=== PATIENT | female | born 1990 | race Caucasian/White ===

== ENCOUNTER 2016-11-08 17:23 | Emergency (ER) | payer OTHER ==
[~2016-11-08] VITALS: Ht 152.4 cm; Wt 54.4 kg
--- NOTE | 2016-11-08 17:56 | ED Cough/URI ---
General Chief Complaint: Cough/Cold/Flu Symptoms Stated Complaint: CHEST PAIN Nursing Triage Note: Patient advises that she has had a cough since last night that has become worse and today advises she has a sore throat. She denies hx. of fever. History of Present Illness Time seen by provider: 17:55 Initial Comments Patient reports cough, sinus drainage and sore throat. History of seasonal allergies she is not taking any medications for these. She has history of asthma but does not require medications regularly. Denies any SOA or wheezing. She does report that she needs a note for work that she was seen here. Timing/Duration: yesterday Severity/Quality: mild (nonproductive) Prior Episodes/Possible Cause: occasional episodes, allergen exposure Modifying Factors: Improves With Rest Associated Symptoms: denies symptoms Allergies and Home Medications Allergies Coded Allergies: No Known Drug Allergies (Unverified , 11/08/16) Constitutional: no symptoms reported, see HPI EENTM: nose congestion, throat pain, No epistaxis, No nose pain Respiratory: see HPI, cough, No phlegm All Other Systems Reviewed Negative Unless Noted: Yes Past Xdmqjqt-Zuytaa-Pdflpy Hx Patient Social History Alcohol Use: Denies Use Recreational Drug Use: No Smoking Status: Current Everyday Smoker Type Used: Cigarettes Recent Foreign Travel: No Contact w/Someone Who Travel: No Recent Infectious Disease Expo: No Recent Hopitalizations: No Seasonal Allergies Seasonal Allergies: No Cancer Hx Cancer: Yes Cancer: Cervical Reviewed Nursing Assessment Reviewed/Agree w Nursing PMH: Yes Physical Exam Vital Signs Vital Sign - Last 12Hours 11/08/16 17:46 Temp 98.7 Pulse 84 Resp 14 B/P (MAP) 133/64 Pulse Ox 97 O2 Delivery Room Air Capillary Refill : Less Than 3 Seconds General Appearance: WD/WN, no apparent distress Eyes: Bilateral Eye EOMI, Bilateral Eye Normal Inspection, Bilateral Eye PERRL HEENT: PERRL/EOMI, normal ENT inspection, TMs normal, pharynx normal, No pharyngeal erythema, No tonsillar exudate, other (postnasal drainage noted.) Neck: non-tender, full range of motion, supple, normal inspection, No lymphadenopathy (R), No lymphadenopathy (L) Respiratory: chest non-tender, lungs clear, normal breath sounds Cardiovascular: normal peripheral pulses, regular rate, rhythm, no edema, no murmur Gastrointestinal: normal bowel sounds, non tender, soft Neurologic/Psychiatric: no motor/sensory deficits, alert, normal mood/affect, oriented x 3 Skin: normal color, warm/dry Progress/Results/Core Measures Results/Orders Vital Signs/I&O Vital Sign - Last 12Hours 11/08/16 11/08/16 11/08/16 17:46 17:46 18:29 Temp 98.7 Pulse 84 86 Resp 14 14 B/P (MAP) 133/64 Pulse Ox 97 98 O2 Delivery Room Air Room Air Blood Pressure Mean: 87 ECG Initial ECG Impression Date: Nov 08, 2016 Initial ECG Impression Time: 17:38 Initial ECG Rate: 57 Initial ECG Rhythm: Normal Sinus Initial ECG Intervals: Normal Initial ECG Intervals [place] 140, QRS 3078, QT 380, QTc 370. [place] P 39, QRS 65, T1. Initial ECG Impression: Normal Initial ECG Comparisson: No Previous ECG Available Comment Reviewed with Dr. Enriquez, concurred with interpretation. Departure Impression Impression: Primary Impression: Seasonal allergies Qualified Codes: J30.2 - Other seasonal allergic rhinitis Disposition: 01 HOME, SELF-CARE Condition: Improved Departure-Patient Inst. Decision time for Depature: 18:10 Referrals: NO,LOCAL PHYSICIAN (PCP/Family) Primary Care Physician Patient Instructions: [facility]., Cough, Adult (DC), Seasonal Allergies (DC) Add. Discharge Instructions: Use afrs-gxs-uhanclu allergy medicine, per directions on bottle. Sinus rinse. Schedule follow-up appointment with Dr. Garcia, if symptoms are not improving. Return to emergency department if difficulty breathing, symptoms worsen, or new problems. All discharge instructions reviewed with patient and/or family. Voiced understanding. Copy Copies To 1: JASON GARCIA MD, AMY ARNP Nov 08, 2016 17:56
[2016-11-08 18:29] VITALS: BP 133/64
== END 2016-11-08 18:25 | disposition home or self-care (01) ==
LOC: ER 17:28
DX: J30.2 Other seasonal allergic rhinitis (principal); F17.210 Nicotine dependence, cigarettes, uncomplicated; Z85.41 Personal history of malignant neoplasm of cervix uteri
CPT/HCPCS: 99282

== ENCOUNTER 2017-01-23 14:21 | Emergency (ER) | payer OTHER ==
[~2017-01-23] VITALS: Ht 152.4 cm; Wt 52.2 kg
--- OUTSIDE RECORDS SUMMARY | 2017-01-23 14:27 | XMS REPORT | Clinical Summary ---
Author Author Admin, SABRA Organization [facility] Address Unknown Phone Unavailable Allergies, Adverse Reactions, Alerts Allergy Name Reaction Description Start Date Severity Status Provider No Known Allergies Cher Wright LPN Conditions or Problems Problem Name Problem Code Onset Date Status Entry Date Provider Comment Standard Description Annotate ASTHMA 493.90 Active Aditi Chino MD Asthma, unspecified SUPERVISION, NORMAL , PRIMIGRAVIDA V22.0 Correction Aditi Chino MD Supervision of normal first , NORMAL, MULTIGRAVIDA V22.1 Resolved Aditi Chino MD Supervision of other normal TOB USE D/O COMP PG /PP ANTEPARTM COND/COMP 649.03 Resolved Aditi Chino MD Tobacco use disorder complicating , childbirth, or the puerperium, antepartum condition or complication OTHER SPECIFED COMPLICATION ANTEPARTUM 646.83 Correction Aditi Chino MD Other specified complications of , antepartum condition or complication PLACENTA PREVIA WITHOUT HEMORRHAGE ANTEPARTUM 641.03 Resolved Aditi Chino MD Placenta previa without hemorrhage, antepartum condition or complication THROMBOCYTOPENIA 287.5 Resolved Aditi Chino MD Thrombocytopenia, unspecified OTH PLACENTAL CONDS AFFECT MGMT MOTH ANTPRTM 656.73 Resolved Aditi Chino MD Other placental conditions affecting management of mother, antepartum condition or complication OTHER NONSPECIFIC FINDINGS EXAMINATION OF BLOOD 790.99 Resolved Aditi Chino MD Other nonspecific findings on examination of blood UTI 599.0 Resolved Aditi Chino MD Urinary tract infection, site not specified VAGINAL DISCHARGE 623.5 Resolved Osmany Corea DO Leukorrhea, not specified as infective VAGINAL DISCHARGE 623.5 Resolved Aditi Chino MD Leukorrhea, not specified as infective OTHER DISEASES OF NASAL CAVITY AND SINUSES 478.19 Resolved 03/01 Osmany Corea DO Other disease of nasal cavity and sinuses CONTRACEPTIVE MANAGEMENT V25.09 Active Carlin Najera RN Encounter for other general counseling and advice on contraceptive management Cervical strain 847.0 Active Osmany Corea DO Neck sprain Gynecological examination, routine V72.3 Resolved Aditi Chino MD Special investigations and examinations - Gynecological examination Abnormal anal Pap HGSIL (high grade squamous intraepithelial lesion) 796.74 Inactive Aditi Chino MD Papanicolaou smear of anus with high grade squamous intraepithelial lesion (HGSIL) Abnormal cervical Pap HGSIL (high grade squamous intraepithelial lesion) 795.04 Active Aditi Chino MD Papanicolaou smear of cervix with high grade squamous intraepithelial lesion (HGSIL) HPV 079.4 Active Aditi Chino MD Human papillomavirus infection in conditions classified elsewhere and of unspecified site Tobacco abuse 305.1 Active Aditi Chino MD Tobacco use disorder HOPE 3, severe cervical 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99 05/06 Inactive Aditi Chino MD UTI ICD-599.0 Inactive Aditi Chino MD VAGINAL DISCHARGE ICD-623.5 Inactive Aditi Chino MD OTHER DISEASES OF NASAL CAVITY AND SINUSES ICD-478.19 Inactive Osmany Corea DO Gynecological examination, routine ICD-V72.3 Inactive Aditi Chino MD Medication List Medication Instructions Start Date Stop Date Generic Name NDC Status Provider Patient Instruction BACTRIM DS 800-160 MG TAB 1 tab by mouth twice daily TRIMETHOPRIM-SULFAMETHOXAZOLE 94915489230 No Longer Active Cher Wright LPN Active DEPO-PROVERA 150 MG/ML SUPENSION 1 IM injection q 3 month MEDROXYPROGEST LYNDSEY (CONTRACEP) 20762752519 Active Cher Wright LPN Active FLAGYL 500 MG TAB 1 tablet by mouth three times daily METRONIDAZOLE 19993830281 No Longer Active Aditi Chino MD Active TYLENOL 325 MG TABS one to two tabs Q4 hours PRN pain ACETAMINOPHEN 15682589820 No Longer Active Kirstin Yokum MANAGER CABLE Active COMPLETE DHA 29-1-200 & 250 MG MISC 1 tab daily KRISSY- [id number]-NW-CA-OMEGA 91121095705 No Longer Active Kirstin Yokum MANAGER CABLE Active LORATADINE 10 MG TABS one tab PO daily LORATADINE 38002178735 No Longer Active Kirstin Yokum MANAGER CABLE Active GNP SINUS WASH NETI POT 2300-700 MG KIT rinse sinuses BID PRN SODIUM CHLORIDE-SODIUM BICARB 82635040422 No Longer Active Kirstin Yokum MANAGER CABLE Active SOMA 350 MG TAB 1 tablet every 6 hours as needed for muscle pain CARISOPRODOL 28958668680 No Longer Active Kirstin Yokum MANAGER CABLE Active MELOXICAM 15 MG TABS 1 tab by mount every day for pain with food MELOXICAM 02154907742 No Longer Active Kirstin Yokum MANAGER CABLE Active MACROBID 100 MG CAPS one tab PO BID NITROFURANTOIN MONOHYD MACRO 34321394023 No Longer Active Aditi Chino MD Active BENADRYL 25 MG CAPS 1 to 2 caps every 6 hours PRN DIPHENHYDRAMINE HCL 56424757752 No Longer Active Aditi Chino MD Active MUCINEX 600 MG [id number] 1 tab every 12 hours PRN GUAIFENESIN 94067342423 No Longer Active Aditi Chino MD Active MUCINEX 600 MG [id number] 1 tab every 12 hours PRN MUCINEX 600 MG [id number] GUAIFENESIN Inactive BENADRYL 25 MG CAPS 1 to 2 caps every 6 hours PRN BENADRYL 25 MG CAPS 5403740 DIPHENHYDRAMINE HCL Inactive MELOXICAM 15 MG TABS 1 tab by mount every day for pain with food MELOXICAM 15 MG TABS 667873 MELOXICAM Inactive SOMA 350 MG TAB 1 tablet every 6 hours as needed for muscle pain SOMA 350 MG TAB 603422 CARISOPRODOL Inactive GNP SINUS WASH NETI POT 2300-700 MG KIT rinse sinuses BID PRN GNP SINUS WASH NETI POT 2300-700 MG KIT SODIUM CHLORIDE-SODIUM BICARB Inactive LORATADINE 10 MG TABS one tab PO daily LORATADINE 10 MG TABS 645538 LORATADINE Inactive COMPLETE DHA 29-1-200 & 250 MG MISC 1 tab daily COMPLETE DHA 29-1-200 & 250 MG MISC [id number]-CA-OMEGA Inactive TYLENOL 325 MG TABS one to two tabs Q4 hours PRN pain TYLENOL 325 MG TABS 493543 ACETAMINOPHEN Inactive FLAGYL 500 MG TAB 1 tablet by mouth three times daily FLAGYL 500 MG TAB 069828 METRONIDAZOLE Inactive MACROBID 100 MG CAPS one tab PO BID MACROBID 100 MG CAPS 8176385 NITROFURANTOIN MONOHYD MACRO Inactive BACTRIM DS 800-160 MG TAB 1 tab by mouth twice daily BACTRIM DS 800-160 MG TAB 637540 TRIMETHOPRIM-SULFAMETHOXAZOLE Inactive Immunizations Vaccine Administration Date Value Standard Description Seasonal influenza vaccine, injectable, containing preservative, for > 3 years old (Afluria, FluLaval, Fluzone, Fluvirin, Fluarix, Agriflu(>=18 yo)) Fluzone (>3 yrs.) [[id number]] Influenza, seasonal, injectable hepatitis B vaccine series no hepatitis B vaccine, unspecified formulation Vital Signs Date Name Value Unit Range Description blood pressure, diastolic - 8462-4 56 mm[Hg] BP salgado blood pressure, systolic - 8480-6 104 mm[Hg] BP sys pulse rate E&M - 8867-4 75 /min Heart rate temperature E&M 97 [degF] Body temperature weight E&M - 3141-9 111.4 [lb_av] Weight Measured blood pressure, diastolic - 8462-4 72 mm[Hg] BP salgado blood pressure, systolic - 8480-6 110 mm[Hg] BP sys pulse rate E&M - 8867-4 65 /min Heart rate temperature E&M 98.7 [degF] Body temperature weight E&M - 3141-9 110 [lb_av] Weight Measured blood pressure, diastolic - 8462-4 71 mm[Hg] BP salgado blood pressure, systolic - 8480-6 118 mm[Hg] BP sys pulse rate E&M - 8867-4 79 /min Heart rate temperature E&M 98.1 [degF] Body temperature weight E&M - 3141-9 110 [lb_av] Weight Measured Diagnostic Results Date Name Value Unit Range Description Lab Report: Chlamydia/GC APTIMA/55860 - Lab chlamydia DNA probe NOT DETECTED NOT DETECTED chlamydia DNA probe NOT DETECTED NOT DETECTED Lab Report: Chlamydia/GC APTIMA/18993 - Microbiology Neisseria gonorrhoeae DNA probe NOT DETECTED NOT DETECTED Neisseria gonorrhoeae DNA probe NOT DETECTED NOT DETECTED Lab Report: UADIP W/MICRO, AUTO - Chemistry RBC, urine, dipstick Negative Negative protein, total urine random Negative mg/dL Negative Lab Report: UADIP W/MICRO, AUTO - Urinalysis glucose, urine, semiquantitative Negative Negative ketones, urine, by test strip Negative Negative bilirubin, urine Negative Negative urine color Yellow Colorless;Lightyellow;Straw;Yellow appearance, urine Clear Clear specific gravity, urine 1.020 1.000-1.030 pH, urine, semiquantitative 8.0 5.0-8.5 urobilinogen, urine, semiquantitative (dipstick) 0.2 Normal leukocyte esterase, urine, by dipstick 1+ Negative nitrite, urine, semiquantitative Negative Negative Lab Report: [facility] [place] - Chemistry human chorionic gonadotropin, urine, qualitative (urine test) Negative Negative Office Procedure: Colposcopy - Chemistry human chorionic gonadotropin, urine, qualitative (urine test) neg Encounters Code Encounter Date Provider Facility CPT-19840 Level 3 Est. Patient 14:17:14 CDT Mirlande Amaro APRN [facility] CPT-34071 Level 3 Est. Patient 12:23:10 AUTO RESEARCH ENGINEER Osmany Corea DO [facility] Procedures Code Procedure Name Date Entry Date Standard Description CPT-J1050 Depo Provera 150 mg (Medroxyprogesterone) 13:00:11 CDT CPT-39259 Abx/Therapy Injection 13:00:11 CDT CPT-J1050 Depo Provera 150 mg (Medroxyprogesterone) 09:36:26 CDT CPT-OV Office Visit 14:05:04 CDT CPT-55512 [place] of cervix w bx ECC 13:52:03 CDT CPT-OV Office Visit 13:52:02 CDT CPT-J1050 Depo Provera 150 mg (Medroxyprogesterone) 15:37:52 AUTO RESEARCH ENGINEER CPT-19873 Abx/Therapy Injection 15:37:52 AUTO RESEARCH ENGINEER CPT-PV Prev. Care Visit 11:12:44 AUTO RESEARCH ENGINEER CPT-73364 Spec Collection and Handling Fee 11:10:58 AUTO RESEARCH ENGINEER CPT-J1050 Depo Provera 150 mg (Medroxyprogesterone) 12:33:33 CDT CPT-57324 Abx/Therapy Injection 12:33:33 CDT CPT-J1050 Depo Provera 150 mg (Medroxyprogesterone) 11:47:45 AUTO RESEARCH ENGINEER CPT-00298 Abx/Therapy Injection 11:47:45 AUTO RESEARCH ENGINEER CPT-J1050 Depo Provera 150 mg (Medroxyprogesterone) 10:35:27 AUTO RESEARCH ENGINEER CPT-56412 Abx/Therapy Injection 10:35:27 AUTO RESEARCH ENGINEER CPT-J1050 Depo Provera 150 mg (Medroxyprogesterone) 13:36:14 CDT CPT-63032 Abx/Therapy Injection 13:36:14 CDT CPT-J1050 Depo Provera 150 mg (Medroxyprogesterone) 16:53:25 CDT CPT-54208 Abx/Therapy Injection 16:53:25 CDT CPT-52705 Visit 10:35:01 AUTO RESEARCH ENGINEER CPT-OV Office Visit 11:07:54 AUTO RESEARCH ENGINEER CPT-50479 Visit 11:03:41 AUTO RESEARCH ENGINEER CPT-16450 Visit 15:16:37 AUTO RESEARCH ENGINEER CPT-50936 Visit 17:02:15 AUTO RESEARCH ENGINEER CPT-98735 Visit 11:11:34 AUTO RESEARCH ENGINEER CPT-57294 Sono OB transvag <14 weeks 16:17:14 CDT CPT-73704 Visit 11:24:40 CDT CPT-48037 Visit 18:13:37 CDT CPT-53496 Administration single or combination vaccine inc oral 12 :28:46 CDT CPT-67563 Influenza split virus > age 3 12:28:46 CDT CPT-12956 Sono OB comp > 14 weeks 17:05:09 CDT
--- OUTSIDE RECORDS SUMMARY | 2017-01-23 14:27 | XMS REPORT | Clinical Summary ---
Author Author Admin, SABRA Organization [facility] Address Unknown Phone Unavailable Allergies, Adverse Reactions, Alerts Allergy Name Reaction Description Start Date Severity Status Provider No Known Allergies Martitaparviz Weathers RMA Conditions or Problems Problem Name Problem Code [...] condition or complication THROMBOCYTOPENIA 287.5 Resolved Aditi hCino MD Thrombocytopenia, unspecified OTH PLACENTAL CONDS AFFECT MGMT MOTH ANTPRTM 656.73 Resolved Aditi Chino MD Other placental conditions affecting management of mother, antepartum condition or complication OTHER NONSPECIFIC FINDINGS EXAMINATION OF BLOOD 790.99 Resolved Aditi Chion MD Other nonspecific findings on examination of [...] cervix uteri Lower back pain 724.2 Active Jillina Frajames EMERGENCY MEDICINE NURSE PRACTITIONER Lumbago DYSURIA 788.1 Active Jillcarla Frajames EMERGENCY MEDICINE NURSE PRACTITIONER Dysuria URI 465.9 Active Osmany Corea DO Acute upper respiratory infections of unspecified site Hand pain, right 729.5 Active Osmany Corea DO Pain in limb , NORMAL, MULTIGRAVIDA ICD-V22.1 Inactive Aditi Chino MD TOB USE D/O COMP PG /PP ANTEPARTM COND/COMP ICD-649.03 06/17 Inactive Aditi Chino MD OTHER SPECIFED COMPLICATION ANTEPARTUM ICD-646.83 Mckayla Chino MD PLACENTA PREVIA WITHOUT HEMORRHAGE ANTEPARTUM [...] Osmany Corea DO Gynecological examination, routine ICD-V72.3 Mckayla Chino MD Medication List Medication Instructions Start Date Stop Date Generic Name NDC Status Provider Patient Instruction PREDNISONE 20 MG TAB 1 tab twice daily for 3 day, then one daily for three days PREDNISONE 66962653118 Active Osmany Corea DO Active BACTRIM DS 800-160 MG TAB 1 tab by mouth twice daily TRIMETHOPRIM-SULFAMETHOXAZOLE 05063662816 No Longer Active Cher Wright LPN Active DEPO-PROVERA 150 MG/ML SUPENSION 1 IM injection q 3 month MEDROXYPROGEST LYNDSEY (CONTRACEP) 03488785693 Active Cher Kyle PROTOTYPE MACHINE OPERATOR Active FLAGYL 500 MG TAB 1 tablet by mouth three times daily METRONIDAZOLE 88584422412 No Longer Active Aditi Chino MD Active TYLENOL 325 MG TABS one to two tabs Q4 hours PRN pain ACETAMINOPHEN 43179009718 No Longer Active Kirstin Yokum EMERGENCY MEDICINE NURSE PRACTITIONER Active COMPLETE DHA 29-1-200 & 250 MG MISC 1 tab daily PRENAT- UJVXK-YDTQG-YU-CA-OMEGA 95116137336 No Longer Active Kirstin Yokum EMERGENCY MEDICINE NURSE PRACTITIONER Active LORATADINE 10 MG TABS one tab PO daily LORATADINE 41550216175 No Longer Active Kirstin Yokum EMERGENCY MEDICINE NURSE PRACTITIONER Active GNP SINUS WASH NETI POT 2300-700 MG KIT rinse sinuses BID PRN SODIUM CHLORIDE-SODIUM BICARB 92449449924 No Longer Active Kirstin Yokum EMERGENCY MEDICINE NURSE PRACTITIONER Active SOMA 350 MG TAB 1 tablet every 6 hours as needed for muscle pain CARISOPRODOL 71118150574 No Longer Active Kirstin Yokum EMERGENCY MEDICINE NURSE PRACTITIONER Active MELOXICAM 15 MG TABS 1 tab by mount every day for pain with food MELOXICAM 45378659742 No Longer Active Kirstin Yokum EMERGENCY MEDICINE NURSE PRACTITIONER Active MACROBID 100 MG CAPS one tab PO BID NITROFURANTOIN MONOHYD MACRO 24087223463 No Longer Active Aditi Chino MD Active BENADRYL 25 MG CAPS 1 to 2 caps every 6 hours PRN DIPHENHYDRAMINE HCL 12161783576 No Longer Active Aditi Chino MD Active MUCINEX 600 MG [id number]-[id number] 1 tab every 12 hours PRN GUAIFENESIN 51677557914 No Longer Active Aditi Chino MD Active MUCINEX 600 MG [id number]-HFO 1 tab every 12 hours PRN MUCINEX 600 MG [id number]-LMZ GUAIFENESIN Inactive BENADRYL 25 MG CAPS 1 to 2 caps every 6 hours PRN BENADRYL 25 MG CAPS 9390874 DIPHENHYDRAMINE HCL Inactive MELOXICAM 15 MG TABS 1 tab by mount every day for pain with food MELOXICAM 15 MG TABS 096772 MELOXICAM Inactive SOMA 350 MG TAB 1 tablet every 6 hours as needed for muscle pain SOMA 350 MG TAB 925458 CARISOPRODOL Inactive GNP SINUS WASH NETI POT 2300-700 MG KIT rinse sinuses BID PRN GNP SINUS WASH NETI POT 2300-700 MG KIT SODIUM CHLORIDE-SODIUM BICARB Inactive LORATADINE 10 MG TABS one tab PO daily LORATADINE 10 MG TABS 846865 LORATADINE Inactive COMPLETE BELA DHA 29-1-200 & 250 MG MISC 1 tab daily COMPLETE BELA DHA 29-1-200 & 250 MG MISC [id number]-FA-CA-OMEGA Inactive TYLENOL 325 MG TABS one to two tabs Q4 hours PRN pain TYLENOL 325 MG TABS 830733 ACETAMINOPHEN Inactive FLAGYL 500 MG TAB 1 tablet by mouth three times daily FLAGYL 500 MG TAB 596315 METRONIDAZOLE Inactive MACROBID 100 MG CAPS one tab PO BID MACROBID 100 MG CAPS 0381958 NITROFURANTOIN MONOHYD MACRO Inactive BACTRIM DS 800-160 MG TAB 1 tab by mouth twice daily BACTRIM DS 800-160 MG TAB 402175 TRIMETHOPRIM-SULFAMETHOXAZOLE Inactive Immunizations Vaccine Administration Date Value Standard Description Seasonal influenza vaccine, injectable, containing preservative, for > 3 years old (Afluria, FluLaval, Fluzone, Fluvirin, Fluarix, Agriflu(>=18 yo)) Fluzone (>3 yrs.) [[id number]] Influenza, seasonal, injectable hepatitis B vaccine series no hepatitis B vaccine, unspecified formulation Vital Signs Date Name Value Unit Range Description blood pressure, diastolic - 8462-4 64 mm[Hg] BP salgado blood pressure, systolic - 8480-6 114 mm[Hg] BP sys pulse rate E&M - 8867-4 81 /min Heart rate temperature E&M 97.8 [degF] Body temperature weight E&M - 3141-9 106 [lb_av] Weight Measured blood pressure, diastolic - 8462-4 61 mm[Hg] BP salgado blood pressure, systolic - 8480-6 116 mm[Hg] BP sys pulse rate E&M - 8867-4 68 /min Heart rate temperature E&M 98.1 [degF] Body temperature weight E&M - 3141-9 112 [lb_av] Weight Measured blood pressure, diastolic - 8462-4 56 mm[Hg] [...] Value Unit Range Description Lab Report: Chlamydia/GC APTIMA/00566 - Lab chlamydia DNA probe NOT DETECTED NOT DETECTED chlamydia DNA probe NOT DETECTED NOT DETECTED Lab Report: Chlamydia/GC APTIMA/39598 - Microbiology Neisseria gonorrhoeae DNA probe NOT [...] nitrite, urine, semiquantitative Negative Negative Lab Report: [facility] [place] - Chemistry human chorionic gonadotropin, urine, qualitative (urine test) Negative Negative Office Procedure: Colposcopy - Chemistry human chorionic gonadotropin, urine, qualitative (urine test) neg Encounters Code Encounter Date Provider Facility CPT-31892 Level 3 Est. Patient 16:24:05 CDT Osmany Corea [facility] CPT-11610 Level 3 Est. Patient 14:17:14 [facility] Est. Patient 12:23:10 AS400 PROGRAMMER ANALYST Osmany Corea [facility] Procedures Code Procedure Name Date Entry Date Standard Description CPT-87082 Hand, right, min 3V - XRAY USE ONLY 13:36:28 CDT 10/28 CPT-J1050 Depo Provera 150 mg (Medroxyprogesterone) 13:00:11 CDT CPT-80031 Abx/Therapy Injection 13:00:11 CDT CPT-J1050 Depo Provera 150 mg (Medroxyprogesterone) 09:36:26 CDT CPT-OV Office Visit 14:05:04 CDT CPT-90495 [place] of cervix w bx ECC 13:52:03 CDT CPT-OV Office Visit 13:52:02 CDT CPT-J1050 Depo Provera 150 mg (Medroxyprogesterone) 15:37:52 AS400 PROGRAMMER ANALYST CPT-36595 Abx/Therapy Injection 15:37:52 AS400 PROGRAMMER ANALYST CPT-PV Prev. Care Visit 11:12:44 AS400 PROGRAMMER ANALYST CPT-55059 Spec Collection and Handling Fee 11:10:58 AS400 PROGRAMMER ANALYST CPT-J1050 Depo Provera 150 mg (Medroxyprogesterone) 12:33:33 CDT CPT-82306 Abx/Therapy Injection 12:33:33 CDT CPT-J1050 Depo Provera 150 mg (Medroxyprogesterone) 11:47:45 AS400 PROGRAMMER ANALYST CPT-95102 Abx/Therapy Injection 11:47:45 AS400 PROGRAMMER ANALYST CPT-J1050 Depo Provera 150 mg (Medroxyprogesterone) 10:35:27 AS400 PROGRAMMER ANALYST CPT-19298 Abx/Therapy Injection 10:35:27 AS400 PROGRAMMER ANALYST CPT-J1050 Depo Provera 150 mg (Medroxyprogesterone) 13:36:14 CDT CPT-79311 Abx/Therapy Injection 13:36:14 CDT CPT-J1050 Depo Provera 150 mg (Medroxyprogesterone) 16:53:25 CDT CPT-74631 Abx/Therapy Injection 16:53:25 CDT CPT-18934 Visit 10:35:01 AS400 PROGRAMMER ANALYST CPT-OV Office Visit 11:07:54 AS400 PROGRAMMER ANALYST CPT-47476 Visit 11:03:41 AS400 PROGRAMMER ANALYST CPT-45988 Visit 15:16:37 AS400 PROGRAMMER ANALYST CPT-58132 Visit 17:02:15 AS400 PROGRAMMER ANALYST CPT-53821 Visit 11:11:34 AS400 PROGRAMMER ANALYST CPT-33881 Son[facility] OB transvag <14 weeks 16:17:14 CDT CPT-77360 Visit 11:24:40 CDT CPT-52285 Visit 18:13:37 CDT CPT-93116 Administration single or combination vaccine inc oral 12 :28:46 CDT CPT-18813 Influenza split virus > age 3 12:28:46 CDT CPT-18410 Sono OB comp > 14 weeks 17:05:09 CDT
--- OUTSIDE RECORDS SUMMARY | 2017-01-23 14:28 | XMS REPORT | Clinical Summary ---
Author Author Admin, Baljinder Organization [facility] Address Unknown Phone Unavailable Allergies, Adverse Reactions, Alerts Allergy Name Reaction Description Start Date Severity Status Provider No Known Allergies Estela Paez LPN Conditions or Problems Problem Name Problem [...] Lower back pain 724.2 Active Jillina Frajames CROCHETER HAND Lumbago DYSURIA 788.1 Active Mirlande Frajames CROCHETER HAND Dysuria URI 465.9 Active Osmany Corea DO [...] FINDINGS EXAMINATION OF BLOOD ICD-790.99 05/06 Inactive dAiti Chino MD UTI ICD-599.0 Inactive Aditi Chino [...] then one daily for three days PREDNISONE 10678585129 Active Osmany Corea DO Active BACTRIM DS 800-160 MG TAB 1 tab by mouth twice daily TRIMETHOPRIM-SULFAMETHOXAZOLE 51245953377 No Longer Active Cher Wright LPN Active DEPO-PROVERA 150 MG/ML SUPENSION 1 IM injection q 3 month MEDROXYPROGEST LYNDSEY (CONTRACEP) 44052627559 Active Cher Wright LPN Active FLAGYL 500 MG TAB 1 tablet by mouth three times daily METRONIDAZOLE 26525705791 No Longer Active Aditi Chino MD Active TYLENOL 325 MG TABS one to two tabs Q4 hours PRN pain ACETAMINOPHEN 01178378196 No Longer Active Kirstin Yokum CROCHETER HAND Active COMPLETE DHA 29-1-200 & 250 MG MISC 1 tab daily PRENAT- [id number]-[id number]-MS-CA-OMEGA 92532219697 No Longer Active Kirstin Yokum CROCHETER HAND Active LORATADINE 10 MG TABS one tab PO daily LORATADINE 50127836917 No Longer Active Kirstin Yokum CROCHETER HAND Active GNP SINUS WASH NETI POT 2300-700 MG KIT rinse sinuses BID PRN SODIUM CHLORIDE-SODIUM BICARB 77176753824 No Longer Active Kirstin Yokum CROCHETER HAND Active SOMA 350 MG TAB 1 tablet every 6 hours as needed for muscle pain CARISOPRODOL 65482249647 No Longer Active Kirstin Yokum CROCHETER HAND Active MELOXICAM 15 MG TABS 1 tab by mount every day for pain with food MELOXICAM 30021795412 No Longer Active Kirstin Yokum CROCHETER HAND Active MACROBID 100 MG CAPS one tab PO BID NITROFURANTOIN MONOHYD MACRO 78409442825 No Longer Active Aditi Chino MD Active BENADRYL 25 MG CAPS 1 to 2 caps every 6 hours PRN DIPHENHYDRAMINE HCL 19092299678 No Longer Active Aditi Chino MD Active MUCINEX 600 MG [id number]-TGZ 1 tab every 12 hours PRN GUAIFENESIN 19818932011 No Longer Active Aditi Chino MD Active MUCINEX 600 MG US02C-RCI 1 tab every 12 hours PRN MUCINEX 600 MG [id number]-JHN GUAIFENESIN Inactive BENADRYL 25 MG CAPS 1 to 2 caps every 6 hours PRN BENADRYL 25 MG CAPS 0267791 DIPHENHYDRAMINE HCL Inactive MELOXICAM 15 MG TABS 1 tab by mount every day for pain with food MELOXICAM 15 MG TABS 875584 MELOXICAM Inactive SOMA 350 MG TAB 1 tablet every 6 hours as needed for muscle pain SOMA 350 MG TAB 409219 CARISOPRODOL Inactive GNP SINUS WASH NETI POT 2300-700 MG KIT rinse sinuses BID PRN GNP SINUS WASH NETI POT 2300-700 MG KIT SODIUM CHLORIDE-SODIUM BICARB Inactive LORATADINE 10 MG TABS one tab PO daily LORATADINE 10 MG TABS 157504 LORATADINE Inactive COMPLETE DHA 29-1-200 & 250 MG MISC 1 tab daily COMPLETE BELA DHA 29-1-200 & 250 MG MISC [id number]-FA-CA-OMEGA Inactive TYLENOL 325 MG TABS one to two tabs Q4 hours PRN pain TYLENOL 325 MG TABS 204892 ACETAMINOPHEN Inactive FLAGYL 500 MG TAB 1 tablet by mouth three times daily FLAGYL 500 MG TAB 021374 METRONIDAZOLE Inactive MACROBID 100 MG CAPS one tab PO BID MACROBID 100 MG CAPS 5935998 NITROFURANTOIN MONOHYD MACRO Inactive BACTRIM DS 800-160 MG TAB 1 tab by mouth twice daily BACTRIM DS 800-160 MG TAB 029270 TRIMETHOPRIM-SULFAMETHOXAZOLE Inactive Immunizations Vaccine Administration Date Value Standard Description Seasonal influenza vaccine, injectable, containing preservative, for > 3 years old (Afluria, FluLaval, Fluzone, Fluvirin, Fluarix, Agriflu(>=18 yo)) Fluzone (>3 yrs.) [[id number]] Influenza, seasonal, injectable hepatitis B vaccine series no hepatitis B vaccine, unspecified formulation Vital Signs Date Name Value Unit Range Description blood pressure, diastolic - 8462-4 61 mm[Hg] [...] Value Unit Range Description Lab Report: Chlamydia/GC APTIMA/29474 - Lab chlamydia DNA probe NOT DETECTED NOT DETECTED chlamydia DNA probe NOT DETECTED NOT DETECTED Lab Report: Chlamydia/GC APTIMA/20364 - Microbiology Neisseria gonorrhoeae DNA probe NOT [...] nitrite, urine, semiquantitative Negative Negative Lab Report: [facility] [place] - Chemistry human chorionic gonadotropin, urine, qualitative (urine test) Negative Negative Office Procedure: Colposcopy - Chemistry human chorionic gonadotropin, urine, qualitative (urine test) neg Encounters Code Encounter Date Provider Facility CPT-79876 Level 3 Est. Patient 14:17:14 CDT [facility] Level 3 Est. 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 Osmany Corea DO [facility] Procedures Code Procedure Name Date Entry Date Standard Description CPT-93083 Hand, right, min 3V - XRAY USE ONLY 13:36:28 CDT 10/28 CPT-J1050 Depo Provera 150 mg (Medroxyprogesterone) 13:00:11 CDT CPT-93192 Abx/Therapy Injection 13:00:11 CDT CPT-J1050 Depo Provera 150 mg (Medroxyprogesterone) 09:36:26 CDT CPT-OV Office Visit 14:05:04 CDT CPT-81048 [place] of cervix w bx ECC 13:52:03 CDT CPT-OV Office Visit 13:52:02 CDT CPT-J1050 Depo Provera 150 mg (Medroxyprogesterone) 15:37:52 SENIOR LINUX UNIX ENGINEER CPT-73401 Abx/Therapy Injection 15:37:52 SENIOR LINUX UNIX ENGINEER CPT-PV Prev. Care Visit 11:12:44 SENIOR LINUX UNIX ENGINEER CPT-14852 Spec Collection and Handling Fee 11:10:58 SENIOR LINUX UNIX ENGINEER CPT-J1050 Depo Provera 150 mg (Medroxyprogesterone) 12:33:33 CDT CPT-18526 Abx/Therapy Injection 12:33:33 CDT CPT-J1050 Depo Provera 150 mg (Medroxyprogesterone) 11:47:45 SENIOR LINUX UNIX ENGINEER CPT-79140 Abx/Therapy Injection 11:47:45 SENIOR LINUX UNIX ENGINEER CPT-J1050 Depo Provera 150 mg (Medroxyprogesterone) 10:35:27 SENIOR LINUX UNIX ENGINEER CPT-16880 Abx/Therapy Injection 10:35:27 SENIOR LINUX UNIX ENGINEER CPT-J1050 Depo Provera 150 mg (Medroxyprogesterone) 13:36:14 CDT CPT-32326 Abx/Therapy Injection 13:36:14 CDT CPT-J1050 Depo Provera 150 mg (Medroxyprogesterone) 16:53:25 CDT CPT-36180 Abx/Therapy Injection 16:53:25 CDT CPT-25684 Visit 10:35:01 SENIOR LINUX UNIX ENGINEER CPT-OV Office Visit 11:07:54 SENIOR LINUX UNIX ENGINEER CPT-02842 Visit 11:03:41 SENIOR LINUX UNIX ENGINEER CPT-47696 Visit 15:16:37 SENIOR LINUX UNIX ENGINEER CPT-12517 Visit 17:02:15 SENIOR LINUX UNIX ENGINEER CPT-15467 Visit 11:11:34 SENIOR LINUX UNIX ENGINEER CPT-12741 [facility] transvag <14 weeks 16:17:14 CDT CPT-48736 Visit 11:24:40 CDT CPT-60925 Visit 18:13:37 CDT CPT-47289 Administration single or combination vaccine inc oral 12 :28:46 CDT CPT-61152 Influenza split virus > age 3 12:28:46 CDT CPT-02908 [facility] comp > 14 weeks 17:05:09 CDT
--- OUTSIDE RECORDS SUMMARY | 2017-01-23 14:28 | XMS REPORT | Clinical Summary ---
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 Aditi Chino [...] Generic Name NDC Status Provider Patient Instruction DEPO-PROVERA 150 MG/ML SUPENSION 1 IM injection q 3 month MEDROXYPROGEST LYNDSEY (CONTRACEP) 76022818074 Active Cher Wright WEIGHER PRODUCTION Active FLAGYL 500 MG TAB 1 tablet by mouth three times daily METRONIDAZOLE 14218610356 No Longer Active Aditi Chino MD Active TYLENOL 325 MG TABS one to two tabs Q4 hours PRN pain ACETAMINOPHEN 73987978700 No Longer Active Kirstin Yokum CENTRAL SUPPLY AIDE Active COMPLETE DHA 29-1-200 & 250 MG MISC 1 tab daily PRENAT- SKRNU-BBQLF-DD-CA-OMEGA 69015838932 No Longer Active Kirstin Yokum CENTRAL SUPPLY AIDE Active LORATADINE 10 MG TABS one tab PO daily LORATADINE 92017681996 No Longer Active Kirstin Yokum CENTRAL SUPPLY AIDE Active GNP SINUS WASH NETI POT 2300-700 MG KIT rinse sinuses BID PRN SODIUM CHLORIDE-SODIUM BICARB 78497062643 No Longer Active Kirstin Yokum CENTRAL SUPPLY AIDE Active SOMA 350 MG TAB 1 tablet every 6 hours as needed for muscle pain CARISOPRODOL 63481257767 No Longer Active Kirstin Yokum CENTRAL SUPPLY AIDE Active MELOXICAM 15 MG TABS 1 tab by mount every day for pain with food MELOXICAM 16889038718 No Longer Active Kirstin Yokum CENTRAL SUPPLY AIDE Active MACROBID 100 MG CAPS one tab PO BID NITROFURANTOIN MONOHYD MACRO 35156467255 No Longer Active Aditi Chino MD Active BENADRYL 25 MG CAPS 1 to 2 caps every 6 hours PRN DIPHENHYDRAMINE HCL 17917695692 No Longer Active Aditi Chino MD Active MUCINEX 600 MG [id number] 1 tab every 12 hours PRN GUAIFENESIN 55234722038 No Longer Active Aditi Chino MD Active MUCINEX 600 MG RA67O-OMA 1 tab every 12 hours PRN MUCINEX 600 MG AP75Y-JSH GUAIFENESIN Inactive BENADRYL 25 MG CAPS 1 to 2 caps every 6 hours PRN BENADRYL 25 MG CAPS 0384811 DIPHENHYDRAMINE HCL Inactive MELOXICAM 15 MG TABS 1 tab by mount every day for pain with food MELOXICAM 15 MG TABS 224697 MELOXICAM Inactive SOMA 350 MG TAB 1 tablet every 6 hours as needed for muscle pain SOMA 350 MG TAB 376566 CARISOPRODOL Inactive GNP SINUS WASH NETI POT 2300-700 MG KIT rinse sinuses BID PRN GNP SINUS WASH NETI POT 2300-700 MG KIT SODIUM CHLORIDE-SODIUM BICARB Inactive LORATADINE 10 MG TABS one tab PO daily LORATADINE 10 MG TABS 690735 LORATADINE Inactive COMPLETE DHA 29-1-200 & 250 MG MISC 1 tab daily COMPLETE DHA 29-1-200 & 250 MG MISC [id number]-QYSQG-GZSOO-FA-CA-OMEGA Inactive TYLENOL 325 MG TABS one to two tabs Q4 hours PRN pain TYLENOL 325 MG TABS 833845 ACETAMINOPHEN Inactive FLAGYL 500 MG TAB 1 tablet by mouth three times daily FLAGYL 500 MG TAB 602922 METRONIDAZOLE Inactive MACROBID 100 MG CAPS one tab PO BID MACROBID 100 MG CAPS 2286933 NITROFURANTOIN MONOHYD MACRO Inactive Immunizations Vaccine Administration Date Value Standard Description Seasonal influenza vaccine, injectable, containing preservative, for > 3 years old (Afluria, FluLaval, Fluzone, Fluvirin, Fluarix, Agriflu(>=18 yo)) Fluzone (>3 yrs.) [[id number]] Influenza, seasonal, injectable hepatitis B vaccine series [...] Value Unit Range Description Lab Report: Chlamydia/GC APTIMA/01425 - Lab chlamydia DNA probe NOT DETECTED NOT DETECTED Lab Report: Chlamydia/GC APTIMA/99276 - Microbiology Neisseria gonorrhoeae DNA probe NOT DETECTED NOT DETECTED Lab Report: [facility] - Chemistry human chorionic gonadotropin, urine, qualitative (urine test) Negative Negative Office Procedure: Colposcopy - Chemistry human chorionic gonadotropin, urine, qualitative (urine test) neg Encounters Code Encounter Date Provider Facility CPT-65015 Level 3 Est. Patient 12:23:10 DELIVERY HELPER Osmany Corea DO [facility] Procedures Code Procedure Name Date Entry Date Standard Description CPT-J1050 Depo Provera 150 mg (Medroxyprogesterone) 09:36:26 CDT CPT-OV Office Visit 14:05:04 CDT CPT-92160 [place] of cervix w bx ECC 13:52:03 CDT CPT-OV Office Visit 13:52:02 CDT CPT-J1050 Depo Provera 150 mg (Medroxyprogesterone) 15:37:52 DELIVERY HELPER CPT-91295 Abx/Therapy Injection 15:37:52 DELIVERY HELPER CPT-PV Prev. Care Visit 11:12:44 DELIVERY HELPER CPT-43923 Spec Collection and Handling Fee 11:10:58 DELIVERY HELPER CPT-J1050 Depo Provera 150 mg (Medroxyprogesterone) 12:33:33 CDT CPT-41378 Abx/Therapy Injection 12:33:33 CDT CPT-J1050 Depo Provera 150 mg (Medroxyprogesterone) 11:47:45 DELIVERY HELPER CPT-12998 Abx/Therapy Injection 11:47:45 DELIVERY HELPER CPT-J1050 Depo Provera 150 mg (Medroxyprogesterone) 10:35:27 DELIVERY HELPER CPT-86309 Abx/Therapy Injection 10:35:27 DELIVERY HELPER CPT-J1050 Depo Provera 150 mg (Medroxyprogesterone) 13:36:14 CDT CPT-84305 Abx/Therapy Injection 13:36:14 CDT CPT-J1050 Depo Provera 150 mg (Medroxyprogesterone) 16:53:25 CDT CPT-36979 Abx/Therapy Injection 16:53:25 CDT CPT-65122 Visit 10:35:01 DELIVERY HELPER CPT-OV Office Visit 11:07:54 DELIVERY HELPER CPT-69460 Visit 11:03:41 DELIVERY HELPER CPT-27341 Visit 15:16:37 DELIVERY HELPER CPT-72749 Visit 17:02:15 DELIVERY HELPER CPT-43266 Visit 11:11:34 DELIVERY HELPER CPT-62937 [facility] transvag <14 weeks 16:17:14 CDT CPT-15096 Visit 11:24:40 CDT CPT-09387 Visit 18:13:37 CDT CPT-68895 Administration single or combination vaccine inc oral 12 :28:46 CDT CPT-44997 Influenza split virus > age 3 12:28:46 CDT CPT-87359 [facility] comp > 14 weeks 17:05:09 CDT
--- OUTSIDE RECORDS SUMMARY | 2017-01-23 14:29 | XMS REPORT | Clinical Summary ---
Author Author Admin, SABRA Organization [facility] Address Unknown Phone Unavailable Allergies, Adverse Reactions, [...] Lower back pain 724.2 Active Mirlande Amaro COMMERCIAL CREDIT REVIEWER Lumbago DYSURIA 788.1 Active Mirlande Amaro APRN [...] 1 tab by mouth twice daily TRIMETHOPRIM-SULFAMETHOXAZOLE 49767385806 No Longer Active Cher Wright LPN Active DEPO-PROVERA 150 MG/ML SUPENSION 1 IM injection q 3 month MEDROXYPROGEST LYNDSEY (CONTRACEP) 12320011556 Active Cher Wright LPN Active FLAGYL 500 MG TAB 1 tablet by mouth three times daily METRONIDAZOLE 47105028740 No Longer Active Aditi Chino MD Active TYLENOL 325 MG TABS one to two tabs Q4 hours PRN pain ACETAMINOPHEN 57520280324 No Longer Active Kirstin Yokum COMMERCIAL CREDIT REVIEWER Active COMPLETE DHA 29-1-200 & 250 MG MISC 1 tab daily KRISSY- THWQO-CKCJO-SO-CA-OMEGA 25406211000 No Longer Active Kirstin Yokum COMMERCIAL CREDIT REVIEWER Active LORATADINE 10 MG TABS one tab PO daily LORATADINE 34573160060 No Longer Active Kirstin Yokum COMMERCIAL CREDIT REVIEWER Active GNP SINUS WASH NETI POT 2300-700 MG KIT rinse sinuses BID PRN SODIUM CHLORIDE-SODIUM BICARB 73731670027 No Longer Active Kirstin Yokum COMMERCIAL CREDIT REVIEWER Active SOMA 350 MG TAB 1 tablet every 6 hours as needed for muscle pain CARISOPRODOL 34865414809 No Longer Active Kirstin Yokum COMMERCIAL CREDIT REVIEWER Active MELOXICAM 15 MG TABS 1 tab by mount every day for pain with food MELOXICAM 64653791810 No Longer Active Kirstin Yokum COMMERCIAL CREDIT REVIEWER Active MACROBID 100 MG CAPS one tab PO BID NITROFURANTOIN MONOHYD MACRO 21095196626 No Longer Active Aditi Chino MD Active BENADRYL 25 MG CAPS 1 to 2 caps every 6 hours PRN DIPHENHYDRAMINE HCL 06904706952 No Longer Active Aditi Chino MD Active MUCINEX 600 MG RB23N-PIY 1 tab every 12 hours PRN GUAIFENESIN 78409534929 No Longer Active Aditi Chino MD Active MUCINEX 600 MG CP73K-MAM 1 tab every 12 hours PRN MUCINEX 600 MG QF04N-FIS GUAIFENESIN Inactive BENADRYL 25 MG CAPS 1 to 2 caps every 6 hours PRN BENADRYL 25 MG CAPS 5863729 DIPHENHYDRAMINE HCL Inactive MELOXICAM 15 MG TABS 1 tab by mount every day for pain with food MELOXICAM 15 MG TABS 534231 MELOXICAM Inactive SOMA 350 MG TAB 1 tablet every 6 hours as needed for muscle pain SOMA 350 MG TAB 048167 CARISOPRODOL Inactive GNP SINUS WASH NETI POT 2300-700 MG KIT rinse sinuses BID PRN GNP SINUS WASH NETI POT 2300-700 MG KIT SODIUM CHLORIDE-SODIUM BICARB Inactive LORATADINE 10 MG TABS one tab PO daily LORATADINE 10 MG TABS 915122 LORATADINE Inactive COMPLETE DHA 29-1-200 & 250 MG MISC 1 tab daily COMPLETE DHA 29-1-200 & 250 MG MISC OWWROI-EXZFN-QIDYC-FA-CA-OMEGA Inactive TYLENOL 325 MG TABS one to two tabs Q4 hours PRN pain TYLENOL 325 MG TABS 339791 ACETAMINOPHEN Inactive FLAGYL 500 MG TAB 1 tablet by mouth three times daily FLAGYL 500 MG TAB 378047 METRONIDAZOLE Inactive MACROBID 100 MG CAPS one tab PO BID MACROBID 100 MG CAPS 7000369 NITROFURANTOIN MONOHYD MACRO Inactive BACTRIM DS 800-160 MG TAB 1 tab by mouth twice daily BACTRIM DS 800-160 MG TAB 259020 TRIMETHOPRIM-SULFAMETHOXAZOLE Inactive Immunizations Vaccine Administration Date Value Standard Description Seasonal influenza vaccine, injectable, containing preservative, for > 3 years old (Afluria, FluLaval, Fluzone, Fluvirin, Fluarix, Agriflu(>=18 yo)) Fluzone (>3 yrs.) [[id number]] Influenza, seasonal, injectable hepatitis B vaccine series [...] Value Unit Range Description Lab Report: Chlamydia/GC APTIMA/55088 - Lab chlamydia DNA probe NOT DETECTED NOT DETECTED chlamydia DNA probe NOT DETECTED NOT DETECTED Lab Report: Chlamydia/GC APTIMA/54867 - Microbiology Neisseria gonorrhoeae DNA probe NOT [...] nitrite, urine, semiquantitative Negative Negative Lab Report: [facility] [place] - Chemistry human chorionic gonadotropin, urine, qualitative (urine test) Negative Negative Office Procedure: Colposcopy - Chemistry human chorionic gonadotropin, urine, qualitative (urine test) neg Encounters Code Encounter Date Provider Facility CPT-99696 Level 3 Est. Patient 14:17:14 CDT Mirlande Amaro APRN [facility] CPT-86739 Level 3 Est. Patient 12:23:10 CHIEF RISK OFFICER Osmany Corea DO [facility] Procedures Code Procedure Name Date Entry Date Standard Description CPT-J1050 Depo Provera 150 mg (Medroxyprogesterone) 13:00:11 CDT CPT-28475 Abx/Therapy Injection 13:00:11 CDT CPT-J1050 Depo Provera 150 mg (Medroxyprogesterone) 09:36:26 CDT CPT-OV Office Visit 14:05:04 CDT CPT-30645 [place] of cervix w bx ECC 13:52:03 CDT CPT-OV Office Visit 13:52:02 CDT CPT-J1050 Depo Provera 150 mg (Medroxyprogesterone) 15:37:52 CHIEF RISK OFFICER CPT-59521 Abx/Therapy Injection 15:37:52 CHIEF RISK OFFICER CPT-PV Prev. Care Visit 11:12:44 CHIEF RISK OFFICER CPT-39192 Spec Collection and Handling Fee 11:10:58 CHIEF RISK OFFICER CPT-J1050 Depo Provera 150 mg (Medroxyprogesterone) 12:33:33 CDT CPT-48563 Abx/Therapy Injection 12:33:33 CDT CPT-J1050 Depo Provera 150 mg (Medroxyprogesterone) 11:47:45 CHIEF RISK OFFICER CPT-97906 Abx/Therapy Injection 11:47:45 CHIEF RISK OFFICER CPT-J1050 Depo Provera 150 mg (Medroxyprogesterone) 10:35:27 CHIEF RISK OFFICER CPT-07885 Abx/Therapy Injection 10:35:27 CHIEF RISK OFFICER CPT-J1050 Depo Provera 150 mg (Medroxyprogesterone) 13:36:14 CDT CPT-68617 Abx/Therapy Injection 13:36:14 CDT CPT-J1050 Depo Provera 150 mg (Medroxyprogesterone) 16:53:25 CDT CPT-33763 Abx/Therapy Injection 16:53:25 CDT CPT-43153 Visit 10:35:01 CHIEF RISK OFFICER CPT-OV Office Visit 11:07:54 CHIEF RISK OFFICER CPT-72858 Visit 11:03:41 CHIEF RISK OFFICER CPT-42620 Visit 15:16:37 CHIEF RISK OFFICER CPT-23714 Visit 17:02:15 CHIEF RISK OFFICER CPT-41094 Visit 11:11:34 CHIEF RISK OFFICER CPT-95433 [facility] transvag <14 weeks 16:17:14 CDT CPT-11244 Visit 11:24:40 CDT CPT-20070 Visit 18:13:37 CDT CPT-37743 Administration single or combination vaccine inc oral 12 :28:46 CDT CPT-31157 Influenza split virus > age 3 12:28:46 CDT CPT-30324 [facility] comp > 14 weeks 17:05:09 CDT
--- OUTSIDE RECORDS SUMMARY | 2017-01-23 14:29 | XMS REPORT | Clinical Summary ---
Author Author Admin, SABRA Organization [facility] Address Unknown Phone Unavailable Allergies, Adverse Reactions, [...] injection q 3 month MEDROXYPROGEST LYNDSEY (CONTRACEP) 73845795106 Active Cher Wright MACHINE CONTAINER WASHER Active FLAGYL 500 MG TAB 1 tablet by mouth three times daily METRONIDAZOLE 86922727671 No Longer Active Aditi Chino MD Active TYLENOL 325 MG TABS one to two tabs Q4 hours PRN pain ACETAMINOPHEN 26758354892 No Longer Active Kirstin Yokum CHEF & OWNER Active COMPLETE DHA 29-1-200 & 250 MG MISC 1 tab daily PRENAT- NAVFX-EWKMP-UF-CA-OMEGA 12869724919 No Longer Active Kirstin Yokum CHEF & OWNER Active LORATADINE 10 MG TABS one tab PO daily LORATADINE 55703196778 No Longer Active Kirstin Yokum CHEF & OWNER Active GNP SINUS WASH NETI POT 2300-700 MG KIT rinse sinuses BID PRN SODIUM CHLORIDE-SODIUM BICARB 90617801394 No Longer Active Kirstin Yokum CHEF & OWNER Active SOMA 350 MG TAB 1 tablet every 6 hours as needed for muscle pain CARISOPRODOL 89942125204 No Longer Active Kirstin Yokum CHEF & OWNER Active MELOXICAM 15 MG TABS 1 tab by mount every day for pain with food MELOXICAM 77633250770 No Longer Active Kirstin Yokum CHEF & OWNER Active MACROBID 100 MG CAPS one tab PO BID NITROFURANTOIN MONOHYD MACRO 63449643264 No Longer Active Aditi Chino MD Active BENADRYL 25 MG CAPS 1 to 2 caps every 6 hours PRN DIPHENHYDRAMINE HCL 39442212823 No Longer Active Aditi Chino MD Active MUCINEX 600 MG ZA64R-SGP 1 tab every 12 hours PRN GUAIFENESIN 51675598444 No Longer Active Aditi Chino MD Active MUCINEX 600 MG FX39J-KVN 1 tab every 12 hours PRN MUCINEX 600 MG ME33H-ZKR GUAIFENESIN Inactive BENADRYL 25 MG CAPS 1 to 2 caps every 6 hours PRN BENADRYL 25 MG CAPS 4673758 DIPHENHYDRAMINE HCL Inactive MELOXICAM 15 MG TABS 1 tab by mount every day for pain with food MELOXICAM 15 MG TABS 255595 MELOXICAM Inactive SOMA 350 MG TAB 1 tablet every 6 hours as needed for muscle pain SOMA 350 MG TAB 242341 CARISOPRODOL Inactive GNP SINUS WASH NETI POT 2300-700 MG KIT rinse sinuses BID PRN GNP SINUS WASH NETI POT 2300-700 MG KIT SODIUM CHLORIDE-SODIUM BICARB Inactive LORATADINE 10 MG TABS one tab PO daily LORATADINE 10 MG TABS 628814 LORATADINE Inactive COMPLETE DHA 29-1-200 & 250 MG MISC 1 tab daily COMPLETE DHA 29-1-200 & 250 MG MISC SFNEDT-ZWUFK-DVOBL-FA-CA-OMEGA Inactive TYLENOL 325 MG TABS one to two tabs Q4 hours PRN pain TYLENOL 325 MG TABS 165629 ACETAMINOPHEN Inactive FLAGYL 500 MG TAB 1 tablet by mouth three times daily FLAGYL 500 MG TAB 487973 METRONIDAZOLE Inactive MACROBID 100 MG CAPS one tab PO BID MACROBID 100 MG CAPS 9231240 NITROFURANTOIN MONOHYD MACRO Inactive Immunizations Vaccine Administration Date Value Standard Description Seasonal influenza vaccine, injectable, containing preservative, for > 3 years old (Afluria, FluLaval, Fluzone, Fluvirin, Fluarix, Agriflu(>=18 yo)) Fluzone (>3 yrs.) [[id number]] Influenza, seasonal, injectable hepatitis B vaccine series [...] Value Unit Range Description Lab Report: Chlamydia/GC APTIMA/90348 - Lab chlamydia DNA probe NOT DETECTED NOT DETECTED Lab Report: Chlamydia/GC APTIMA/74085 - Microbiology Neisseria gonorrhoeae DNA probe NOT DETECTED NOT DETECTED Lab Report: [facility] - Chemistry human chorionic gonadotropin, urine, qualitative (urine test) Negative Negative Office Procedure: Colposcopy - Chemistry human chorionic gonadotropin, urine, qualitative (urine test) neg Encounters Code Encounter Date Provider Facility CPT-51820 Level 3 Est. 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 Care Visit 11:12:44 MECHANICAL PENCILS ASSEMBLER CPT-60392 Spec Collection and Handling Fee 11:10:58 MECHANICAL PENCILS ASSEMBLER CPT-J1050 Depo Provera 150 mg (Medroxyprogesterone) 12:33:33 CDT CPT-59393 Abx/Therapy Injection 12:33:33 CDT CPT-J1050 Depo Provera 150 mg (Medroxyprogesterone) 11:47:45 MECHANICAL PENCILS ASSEMBLER CPT-90444 Abx/Therapy Injection 11:47:45 MECHANICAL PENCILS ASSEMBLER CPT-J1050 Depo Provera 150 mg (Medroxyprogesterone) 10:35:27 MECHANICAL PENCILS ASSEMBLER CPT-97787 Abx/Therapy Injection 10:35:27 MECHANICAL PENCILS ASSEMBLER CPT-J1050 Depo Provera 150 mg (Medroxyprogesterone) 13:36:14 CDT CPT-47869 Abx/Therapy Injection 13:36:14 CDT CPT-J1050 Depo Provera 150 mg (Medroxyprogesterone) 16:53:25 CDT CPT-58576 Abx/Therapy Injection 16:53:25 CDT CPT-92468 Visit 10:35:01 MECHANICAL PENCILS ASSEMBLER CPT-OV Office Visit 11:07:54 ME[employer] CPT-28518 Visit 11:03:41 [employer] CPT-77342 Visit 15:16:37 [employer] CPT-87116 Visit 17:02:15 [employer] CPT-56491 Visit 11:11:34 [employer] CPT-58909 Son[facility] OB transvag <14 weeks 16:17:14 CDT CPT-57202 Visit 11:24:40 CDT CPT-09153 Visit 18:13:37 CDT CPT-20262 Administration single or combination vaccine inc oral 12 :28:46 CDT CPT-78708 Influenza split virus > age 3 12:28:46 CDT CPT-81128 Sono OB comp > 14 weeks 17:05:09 CDT
--- OUTSIDE RECORDS SUMMARY | 2017-01-23 14:30 | XMS REPORT | Clinical Summary ---
Author Author Admin, SABRA Organization [facility] Address Unknown Phone Unavailable Allergies, Adverse Reactions, [...] Generic Name NDC Status Provider Patient Instruction FLAGYL 500 MG TAB 1 tablet by mouth three times daily METRONIDAZOLE 51060012152 No Longer Active Aditi Chino MD Active TYLENOL 325 MG TABS one to two tabs Q4 hours PRN pain ACETAMINOPHEN 39066915935 No Longer Active Kirstin Yokum CHILD NUTRITION ASSISTANT Active COMPLETE DHA 29-1-200 & 250 MG MISC 1 tab daily PRENAT- RCFCB-TSGDF-QE-CA-OMEGA 49503236385 No Longer Active Kirstin Yokum CHILD NUTRITION ASSISTANT Active LORATADINE 10 MG TABS one tab PO daily LORATADINE 48508760231 No Longer Active Kirstin Yokum CHILD NUTRITION ASSISTANT Active GNP SINUS WASH NETI POT 2300-700 MG KIT rinse sinuses BID PRN SODIUM CHLORIDE-SODIUM BICARB 77811293777 No Longer Active Kirstin Yokum CHILD NUTRITION ASSISTANT Active SOMA 350 MG TAB 1 tablet every 6 hours as needed for muscle pain CARISOPRODOL 15994131509 No Longer Active Kirstin Yokum CHILD NUTRITION ASSISTANT Active MELOXICAM 15 MG TABS 1 tab by mount every day for pain with food MELOXICAM 77678699956 No Longer Active Kirstin Yokum CHILD NUTRITION ASSISTANT Active MACROBID 100 MG CAPS one tab PO BID NITROFURANTOIN MONOHYD MACRO 75307594950 No Longer Active Aditi Chino MD Active BENADRYL 25 MG CAPS 1 to 2 caps every 6 hours PRN DIPHENHYDRAMINE HCL 03470923490 No Longer Active Aditi Chino MD Active MUCINEX 600 MG [id number]-LTP 1 tab every 12 hours PRN GUAIFENESIN 06051216310 No Longer Active Aditi Chino MD Active MUCINEX 600 MG UH26A-TAC 1 tab every 12 hours PRN MUCINEX 600 MG QW47K-SVZ GUAIFENESIN Inactive BENADRYL 25 MG CAPS 1 to 2 caps every 6 hours PRN BENADRYL 25 MG CAPS 8859326 DIPHENHYDRAMINE HCL Inactive MELOXICAM 15 MG TABS 1 tab by mount every day for pain with food MELOXICAM 15 MG TABS 985544 MELOXICAM Inactive SOMA 350 MG TAB 1 tablet every 6 hours as needed for muscle pain SOMA 350 MG TAB 167376 CARISOPRODOL Inactive GNP SINUS WASH NETI POT 2300-700 MG KIT rinse sinuses BID PRN GNP SINUS WASH NETI POT 2300-700 MG KIT SODIUM CHLORIDE-SODIUM BICARB Inactive LORATADINE 10 MG TABS one tab PO daily LORATADINE 10 MG TABS 347705 LORATADINE Inactive COMPLETE BELA DHA 29-1-200 & 250 MG MISC 1 tab daily COMPLETE BELA DHA 29-1-200 & 250 MG MISC [id number]-HBFLU-ZFQWJ-FA-CA-OMEGA Inactive TYLENOL 325 MG TABS one to two tabs Q4 hours PRN pain TYLENOL 325 MG TABS 330375 ACETAMINOPHEN Inactive FLAGYL 500 MG TAB 1 tablet by mouth three times daily FLAGYL 500 MG TAB 696840 METRONIDAZOLE Inactive MACROBID 100 MG CAPS one tab PO BID MACROBID 100 MG CAPS 6654180 NITROFURANTOIN MONOHYD MACRO Inactive Immunizations Vaccine Administration Date Value Standard Description Seasonal influenza vaccine, injectable, containing preservative, for > 3 years old (Afluria, FluLaval, Fluzone, Fluvirin, Fluarix, Agriflu(>=18 yo)) Fluzone (>3 yrs.) [[id number]] Influenza, seasonal, injectable hepatitis B vaccine series [...] Value Unit Range Description Lab Report: Chlamydia/GC APTIMA/70839 - Lab chlamydia DNA probe NOT DETECTED NOT DETECTED Lab Report: Chlamydia/GC APTIMA/76805 - Microbiology Neisseria gonorrhoeae DNA probe NOT DETECTED NOT DETECTED Office Procedure: Colposcopy - Chemistry human chorionic gonadotropin, urine, qualitative (urine test) neg Encounters Code Encounter Date Provider Facility CPT-54834 Level 3 Est. Patient 12:23:10 DEVELOPMENT CONSULTANT Osmany Corea DO [facility] Procedures Code Procedure Name Date Entry Date Standard Description CPT-J1050 Depo Provera 150 mg (Medroxyprogesterone) 09:36:26 CDT CPT-OV Office Visit 14:05:04 CDT CPT-13768 [place] of cervix w bx ECC 13:52:03 CDT CPT-OV Office Visit 13:52:02 CDT CPT-J1050 Depo Provera 150 mg (Medroxyprogesterone) 15:37:52 DEVELOPMENT CONSULTANT CPT-96400 Abx/Therapy Injection 15:37:52 DEVELOPMENT CONSULTANT CPT-PV Prev. Care Visit 11:12:44 DEVELOPMENT CONSULTANT CPT-19121 Spec Collection and Handling Fee 11:10:58 DEVELOPMENT CONSULTANT CPT-J1050 Depo Provera 150 mg (Medroxyprogesterone) 12:33:33 CDT CPT-08971 Abx/Therapy Injection 12:33:33 CDT CPT-J1050 Depo Provera 150 mg (Medroxyprogesterone) 11:47:45 DEVELOPMENT CONSULTANT CPT-79511 Abx/Therapy Injection 11:47:45 DEVELOPMENT CONSULTANT CPT-J1050 Depo Provera 150 mg (Medroxyprogesterone) 10:35:27 DEVELOPMENT CONSULTANT CPT-04769 Abx/Therapy Injection 10:35:27 DEVELOPMENT CONSULTANT CPT-J1050 Depo Provera 150 mg (Medroxyprogesterone) 13:36:14 CDT CPT-10556 Abx/Therapy Injection 13:36:14 CDT CPT-J1050 Depo Provera 150 mg (Medroxyprogesterone) 16:53:25 CDT CPT-38088 Abx/Therapy Injection 16:53:25 CDT CPT-21527 Visit 10:35:01 DEVELOPMENT CONSULTANT CPT-OV Office Visit 11:07:54 DEVELOPMENT CONSULTANT CPT-12860 Visit 11:03:41 DEVELOPMENT CONSULTANT CPT-45821 Visit 15:16:37 DEVELOPMENT CONSULTANT CPT-44591 Visit 17:02:15 DEVELOPMENT CONSULTANT CPT-65467 Visit 11:11:34 DEVELOPMENT CONSULTANT CPT-33976 [facility] transvag <14 weeks 16:17:14 CDT CPT-23379 Visit 11:24:40 CDT CPT-72842 Visit 18:13:37 CDT CPT-96547 Administration single or combination vaccine inc oral 12 :28:46 CDT CPT-03929 Influenza split virus > age 3 12:28:46 CDT CPT-41811 [facility] comp > 14 weeks 17:05:09 CDT
--- OUTSIDE RECORDS SUMMARY | 2017-01-23 14:30 | XMS REPORT | Clinical Summary ---
Author Author Admin, SABRA Organization [facility] Address Unknown Phone Unavailable Allergies, Adverse Reactions, [...] injection q 3 month MEDROXYPROGEST LYNDSEY (CONTRACEP) 32264404101 Active Cher Wright COMPUTER TEACHER Active FLAGYL 500 MG TAB 1 tablet by mouth three times daily METRONIDAZOLE 67592921084 No Longer Active Aditi Chino MD Active TYLENOL 325 MG TABS one to two tabs Q4 hours PRN pain ACETAMINOPHEN 66019687408 No Longer Active Kirstin Yokum HAND STAPLER Active COMPLETE DHA 29-1-200 & 250 MG MISC 1 tab daily PRENAT- VMNCS-IWAKL-JC-CA-OMEGA 60461344078 No Longer Active Kirstin Yokum HAND STAPLER Active LORATADINE 10 MG TABS one tab PO daily LORATADINE 90527481149 No Longer Active Kirstin Yokum HAND STAPLER Active GNP SINUS WASH NETI POT 2300-700 MG KIT rinse sinuses BID PRN SODIUM CHLORIDE-SODIUM BICARB 12368337787 No Longer Active Kirstin Yokum HAND STAPLER Active SOMA 350 MG TAB 1 tablet every 6 hours as needed for muscle pain CARISOPRODOL 95945831119 No Longer Active Kirstin Yokum HAND STAPLER Active MELOXICAM 15 MG TABS 1 tab by mount every day for pain with food MELOXICAM 56820545484 No Longer Active Kirstin Yokum HAND STAPLER Active MACROBID 100 MG CAPS one tab PO BID NITROFURANTOIN MONOHYD MACRO 64290019737 No Longer Active Aditi Chino MD Active BENADRYL 25 MG CAPS 1 to 2 caps every 6 hours PRN DIPHENHYDRAMINE HCL 71494178855 No Longer Active Aditi Chino MD Active MUCINEX 600 MG EU38H-JKO 1 tab every 12 hours PRN GUAIFENESIN 69831064608 No Longer Active Aditi Chion MD Active MUCINEX 600 MG TE86R-JEJ 1 tab every 12 hours PRN MUCINEX 600 MG OO12M-CQB GUAIFENESIN Inactive BENADRYL 25 MG CAPS 1 to 2 caps every 6 hours PRN BENADRYL 25 MG CAPS 4805268 DIPHENHYDRAMINE HCL Inactive MELOXICAM 15 MG TABS 1 tab by mount every day for pain with food MELOXICAM 15 MG TABS 021764 MELOXICAM Inactive SOMA 350 MG TAB 1 tablet every 6 hours as needed for muscle pain SOMA 350 MG TAB 653264 CARISOPRODOL Inactive GNP SINUS WASH NETI POT 2300-700 MG KIT rinse sinuses BID PRN GNP SINUS WASH NETI POT 2300-700 MG KIT SODIUM CHLORIDE-SODIUM BICARB Inactive LORATADINE 10 MG TABS one tab PO daily LORATADINE 10 MG TABS 068378 LORATADINE Inactive COMPLETE DHA 29-1-200 & 250 MG MISC 1 tab daily COMPLETE DHA 29-1-200 & 250 MG MISC [id number]-OLVNV-FRWHI-FA-CA-OMEGA Inactive TYLENOL 325 MG TABS one to two tabs Q4 hours PRN pain TYLENOL 325 MG TABS 562575 ACETAMINOPHEN Inactive FLAGYL 500 MG TAB 1 tablet by mouth three times daily FLAGYL 500 MG TAB 294273 METRONIDAZOLE Inactive MACROBID 100 MG CAPS one tab PO BID MACROBID 100 MG CAPS 9383579 NITROFURANTOIN MONOHYD MACRO Inactive Immunizations Vaccine Administration Date Value Standard Description Seasonal influenza vaccine, injectable, containing preservative, for > 3 years old (Afluria, FluLaval, Fluzone, Fluvirin, Fluarix, Agriflu(>=18 yo)) Fluzone (>3 yrs.) [[id number]] Influenza, seasonal, injectable hepatitis B vaccine series [...] Value Unit Range Description Lab Report: Chlamydia/GC APTIMA/07489 - Lab chlamydia DNA probe NOT DETECTED NOT DETECTED Lab Report: Chlamydia/GC APTIMA/54606 - Microbiology Neisseria gonorrhoeae DNA probe NOT DETECTED NOT DETECTED Lab Report: CG - Chemistry human chorionic gonadotropin, urine, qualitative (urine test) Negative Negative Office Procedure: Colposcopy - Chemistry human chorionic gonadotropin, urine, qualitative (urine test) neg Encounters Code Encounter Date Provider Facility CPT-15270 Level 3 Est. Patient 12:23:10 ACCOUNTS RECEIVABLE SPECIALIST Osmany Corea DO [facility] Procedures Code Procedure Name Date Entry Date Standard Description CPT-J1050 Depo Provera 150 mg (Medroxyprogesterone) 13:00:11 CDT CPT-04638 Abx/Therapy Injection 13:00:11 CDT CPT-J1050 Depo Provera 150 mg (Medroxyprogesterone) 09:36:26 CDT CPT-OV Office Visit 14:05:04 CDT CPT-22026 [place] of cervix w bx ECC 13:52:03 CDT CPT-OV Office Visit 13:52:02 CDT CPT-J1050 Depo Provera 150 mg (Medroxyprogesterone) 15:37:52 ACCOUNTS RECEIVABLE SPECIALIST CPT-45179 Abx/Therapy Injection 15:37:52 ACCOUNTS RECEIVABLE SPECIALIST CPT-PV Prev. Care Visit 11:12:44 ACCOUNTS RECEIVABLE SPECIALIST CPT-81621 Spec Collection and Handling Fee 11:10:58 ACCOUNTS RECEIVABLE SPECIALIST CPT-J1050 Depo Provera 150 mg (Medroxyprogesterone) 12:33:33 CDT CPT-78456 Abx/Therapy Injection 12:33:33 CDT CPT-J1050 Depo Provera 150 mg (Medroxyprogesterone) 11:47:45 ACCOUNTS RECEIVABLE SPECIALIST CPT-44493 Abx/Therapy Injection 11:47:45 ACCOUNTS RECEIVABLE SPECIALIST CPT-J1050 Depo Provera 150 mg (Medroxyprogesterone) 10:35:27 ACCOUNTS RECEIVABLE SPECIALIST CPT-37829 Abx/Therapy Injection 10:35:27 ACCOUNTS RECEIVABLE SPECIALIST CPT-J1050 Depo Provera 150 mg (Medroxyprogesterone) 13:36:14 CDT CPT-39954 Abx/Therapy Injection 13:36:14 CDT CPT-J1050 Depo Provera 150 mg (Medroxyprogesterone) 16:53:25 CDT CPT-29087 Abx/Therapy Injection 16:53:25 CDT CPT-51211 Visit 10:35:01 ACCOUNTS RECEIVABLE SPECIALIST CPT-OV Office Visit 11:07:54 ACCOUNTS RECEIVABLE SPECIALIST CPT-56614 Visit 11:03:41 ACCOUNTS RECEIVABLE SPECIALIST CPT-99738 Visit 15:16:37 ACCOUNTS RECEIVABLE SPECIALIST CPT-92482 Visit 17:02:15 ACCOUNTS RECEIVABLE SPECIALIST CPT-37789 Visit 11:11:34 ACCOUNTS RECEIVABLE SPECIALIST CPT-83678 [facility] transvag <14 weeks 16:17:14 CDT CPT-26122 Visit 11:24:40 CDT CPT-19430 Visit 18:13:37 CDT CPT-60343 Administration single or combination vaccine inc oral 12 :28:46 CDT CPT-22429 Influenza split virus > age 3 12:28:46 CDT CPT-89426 [facility] comp > 14 weeks 17:05:09 CDT
--- OUTSIDE RECORDS SUMMARY | 2017-01-23 14:30 | XMS REPORT | Clinical Summary ---
Author Author Admin, SABRA Organization [facility] Address Unknown Phone Unavailable Allergies, Adverse Reactions, Alerts Allergy Name Reaction Description Start Date Severity Status Provider No Known Allergies Kirstin Chen CHRISTIAN Conditions or Problems Problem Name Problem Code Onset Date Status Entry Date Provider Comment Standard Description Annotate ASTHMA 493.90 Active Aditi Chino MD Asthma, unspecified SUPERVISION, NORMAL , PRIMIGRAVIDA V22.0 Correction Aditi Chino MD Supervision of normal first , NORMAL, MULTIGRAVIDA V22.1 Active Laura Smith Supervision of other normal TOB USE D/O COMP PG /PP ANTEPARTM COND/COMP 649.03 Active Aditi Chino MD Tobacco use disorder complicating [...] not specified as infective VAGINAL DISCHARGE 623.5 Active Kirstin Chen APRN Leukorrhea, not specified as infective OTHER DISEASES OF NASAL CAVITY AND SINUSES 478.19 Resolved 03/01 Osmany Corea DO Other disease of nasal cavity and sinuses CONTRACEPTIVE MANAGEMENT V25.09 Active Carlin Najera RN Encounter for other general counseling and advice on contraceptive management Cervical strain 847.0 Active Osmany Corea DO Neck sprain Gynecological examination, routine V72.3 Active Kirstin Chen APRN Special investigations and examinations - Gynecological examination 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 Aditi Chino MD 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 Aditi Chino MD THROMBOCYTOPENIA ICD-287.5 Inactive Aditi Chino MD OTH PLACENTAL CONDS AFFECT 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 Inactive Aditi Chino MD OTHER NONSPECIFIC FINDINGS EXAMINATION OF BLOOD ICD-790.99 05/06 Inactive Aditi Chino MD UTI ICD-599.0 Inactive Aditi Chino MD OTHER DISEASES OF NASAL CAVITY AND SINUSES ICD-478.19 Inactive Osmany Corea DO Medication List Medication Instructions Start Date Stop Date Generic Name NDC Status Provider Patient Instruction FLAGYL 500 MG TAB 1 tablet by mouth three times daily METRONIDAZOLE 80880597133 Active Kirstin Yokum FAA CERTIFIED POWERPLANT MECHANIC Active TYLENOL 325 MG TABS one to two tabs Q4 hours PRN pain ACETAMINOPHEN 89790088150 No Longer Active Kirstin Yokum FAA CERTIFIED POWERPLANT MECHANIC Active COMPLETE DHA 29-1-200 & 250 MG MISC 1 tab daily KRISSY- QGMAO-RKFSV-EJ-CA-OMEGA 75676990388 No Longer Active Kirstin Yokum FAA CERTIFIED POWERPLANT MECHANIC Active LORATADINE 10 MG TABS one tab PO daily LORATADINE 62404186719 No Longer Active Kirstin Yokum FAA CERTIFIED POWERPLANT MECHANIC Active GNP SINUS WASH NETI POT 2300-700 MG KIT rinse sinuses BID PRN SODIUM CHLORIDE-SODIUM BICARB 63360458768 No Longer Active Kirstin Yokum FAA CERTIFIED POWERPLANT MECHANIC Active SOMA 350 MG TAB 1 tablet every 6 hours as needed for muscle pain CARISOPRODOL 75857399346 No Longer Active Kirstin Yokum FAA CERTIFIED POWERPLANT MECHANIC Active MELOXICAM 15 MG TABS 1 tab by mount every day for pain with food MELOXICAM 57309753655 No Longer Active Kirstin Yokum FAA CERTIFIED POWERPLANT MECHANIC Active MACROBID 100 MG CAPS one tab PO BID NITROFURANTOIN MONOHYD MACRO 72913221705 No Longer Active Aditi Chino MD Active BENADRYL 25 MG CAPS 1 to 2 caps every 6 hours PRN DIPHENHYDRAMINE HCL 86779270221 No Longer Active Aditi Chino MD Active MUCINEX 600 MG [id number]-GPQ 1 tab every 12 hours PRN GUAIFENESIN 59743376707 No Longer Active Aditikyleigh Chino MD Active MUCINEX 600 MG CO88C-KKX 1 tab every 12 hours PRN MUCINEX 600 MG ZT16X-SSK GUAIFENESIN Inactive BENADRYL 25 MG CAPS 1 to 2 caps every 6 hours PRN BENADRYL 25 MG CAPS 0177132 DIPHENHYDRAMINE HCL Inactive MELOXICAM 15 MG TABS 1 tab by mount every day for pain with food MELOXICAM 15 MG TABS 867517 MELOXICAM Inactive SOMA 350 MG TAB 1 tablet every 6 hours as needed for muscle pain SOMA 350 MG TAB 432927 CARISOPRODOL Inactive GNP SINUS WASH NETI POT 2300-700 MG KIT rinse sinuses BID PRN GNP SINUS WASH NETI POT 2300-700 MG KIT SODIUM CHLORIDE-SODIUM BICARB Inactive LORATADINE 10 MG TABS one tab PO daily LORATADINE 10 MG TABS 850383 LORATADINE Inactive COMPLETE DHA 29-1-200 & 250 MG MISC 1 tab daily COMPLETE DHA 29-1-200 & 250 MG MISC [id number]-EJSZR-KLCZB-FA-CA-OMEGA Inactive TYLENOL 325 MG TABS one to two tabs Q4 hours PRN pain TYLENOL 325 MG TABS 374178 ACETAMINOPHEN Inactive MACROBID 100 MG CAPS one tab PO BID MACROBID 100 MG CAPS 7179737 NITROFURANTOIN MONOHYD MACRO Inactive Immunizations Vaccine Administration Date Value Standard Description Seasonal influenza vaccine, injectable, containing preservative, for > 3 years old (Afluria, FluLaval, Fluzone, Fluvirin, Fluarix, Agriflu(>=18 yo)) Fluzone (>3 yrs.) [[id number]] Influenza, seasonal, injectable hepatitis B vaccine series no hepatitis B vaccine, unspecified formulation Vital Signs Date Name Value Unit Range Description blood pressure, diastolic - 8462-4 71 mm[Hg] BP salgado blood pressure, systolic - 8480-6 118 mm[Hg] BP sys pulse rate E&M - 8867-4 79 /min Heart rate temperature E&M 98.1 [degF] Body temperature weight E&M - 3141-9 110 [lb_av] Weight Measured Diagnostic Results Date Name Value Unit Range Description Lab Report: Chlamydia/GC APTIMA/01827 - Lab chlamydia DNA probe NOT DETECTED NOT DETECTED Lab Report: Chlamydia/GC APTIMA/39963 - Microbiology Neisseria gonorrhoeae DNA probe NOT DETECTED NOT DETECTED Encounters Code Encounter Date Provider Facility CPT-74659 Level 3 Est. Patient 12:23:10 RECRUITER MANAGER Osmany Corea DO [facility] Procedures Code Procedure Name Date Entry Date Standard Description CPT-J1050 Depo Provera 150 mg (Medroxyprogesterone) 15:37:52 RECRUITER MANAGER CPT-93725 Abx/Therapy Injection 15:37:52 RECRUITER MANAGER CPT-PV Prev. Care Visit 11:12:44 RECRUITER MANAGER CPT-92220 Spec Collection and Handling Fee 11:10:58 RECRUITER MANAGER CPT-J1050 Depo Provera 150 mg (Medroxyprogesterone) 12:33:33 CDT CPT-30760 Abx/Therapy Injection 12:33:33 CDT CPT-J1050 Depo Provera 150 mg (Medroxyprogesterone) 11:47:45 RECRUITER MANAGER CPT-90726 Abx/Therapy Injection 11:47:45 RECRUITER MANAGER CPT-J1050 Depo Provera 150 mg (Medroxyprogesterone) 10:35:27 RECRUITER MANAGER CPT-56120 Abx/Therapy Injection 10:35:27 RECRUITER MANAGER CPT-J1050 Depo Provera 150 mg (Medroxyprogesterone) 13:36:14 CDT CPT-87329 Abx/Therapy Injection 13:36:14 CDT CPT-J1050 Depo Provera 150 mg (Medroxyprogesterone) 16:53:25 CDT CPT-05443 Abx/Therapy Injection 16:53:25 CDT CPT-88907 Visit 10:35:01 RECRUITER MANAGER CPT-OV Office Visit 11:07:54 RECRUITER MANAGER CPT-23121 Visit 11:03:41 RECRUITER MANAGER CPT-56450 Visit 15:16:37 RECRUITER MANAGER CPT-99622 Visit 17:02:15 RECRUITER MANAGER CPT-45720 Visit 11:11:34 RECRUITER MANAGER CPT-84948 [facility] transvag <14 weeks 16:17:14 CDT CPT-05232 Visit 11:24:40 CDT CPT-82477 Visit 18:13:37 CDT CPT-04543 Administration single or combination vaccine inc oral 12 :28:46 CDT CPT-61399 Influenza split virus > age 3 12:28:46 CDT CPT-02934 [facility] comp > 14 weeks 17:05:09 CDT
--- OUTSIDE RECORDS SUMMARY | 2017-01-23 14:31 | XMS REPORT | Clinical Summary ---
Author Author Admin, SABRA Organization [facility] Address Unknown Phone Unavailable Allergies, Adverse [...] 1 tab by mouth twice daily TRIMETHOPRIM-SULFAMETHOXAZOLE 28921778905 No Longer Active Cher Wright LPN Active DEPO-PROVERA 150 MG/ML SUPENSION 1 IM injection q 3 month MEDROXYPROGEST LYNDSEY (CONTRACEP) 72952460733 Active Cher Wright LPN Active FLAGYL 500 MG TAB 1 tablet by mouth three times daily METRONIDAZOLE 59153025330 No Longer Active Aditi Chino MD Active TYLENOL 325 MG TABS one to two tabs Q4 hours PRN pain ACETAMINOPHEN 05152648813 No Longer Active Kirstin Yokum INTRANET DEVELOPER Active COMPLETE BELA DHA 29-1-200 & 250 MG MISC 1 tab daily PRENAT- GPGTE-BWCZV-ZT-CA-OMEGA 62788476190 No Longer Active Kirstin Yokum INTRANET DEVELOPER Active LORATADINE 10 MG TABS one tab PO daily LORATADINE 47727093658 No Longer Active Kirstin Yokum INTRANET DEVELOPER Active GNP SINUS WASH NETI POT 2300-700 MG KIT rinse sinuses BID PRN SODIUM CHLORIDE-SODIUM BICARB 80754235823 No Longer Active Kirstin Yokum INTRANET DEVELOPER Active SOMA 350 MG TAB 1 tablet every 6 hours as needed for muscle pain CARISOPRODOL 65719562271 No Longer Active Kirstin Yokum INTRANET DEVELOPER Active MELOXICAM 15 MG TABS 1 tab by mount every day for pain with food MELOXICAM 65142406314 No Longer Active Kirstin Yokum INTRANET DEVELOPER Active MACROBID 100 MG CAPS one tab PO BID NITROFURANTOIN MONOHYD MACRO 26066687826 No Longer Active Aditi Chino MD Active BENADRYL 25 MG CAPS 1 to 2 caps every 6 hours PRN DIPHENHYDRAMINE HCL 83694686862 No Longer Active Aditi Chino MD Active MUCINEX 600 MG [id number]-KYS 1 tab every 12 hours PRN GUAIFENESIN 87068748698 No Longer Active Aditikyleigh Chino MD Active MUCINEX 600 MG XC40F-IMM 1 tab every 12 hours PRN MUCINEX 600 MG SO25D-VQT GUAIFENESIN Inactive BENADRYL 25 MG CAPS 1 to 2 caps every 6 hours PRN BENADRYL 25 MG CAPS 0751478 DIPHENHYDRAMINE HCL Inactive MELOXICAM 15 MG TABS 1 tab by mount every day for pain with food MELOXICAM 15 MG TABS 162786 MELOXICAM Inactive SOMA 350 MG TAB 1 tablet every 6 hours as needed for muscle pain SOMA 350 MG TAB 870342 CARISOPRODOL Inactive GNP SINUS WASH NETI POT 2300-700 MG KIT rinse sinuses BID PRN GNP SINUS WASH NETI POT 2300-700 MG KIT SODIUM CHLORIDE-SODIUM BICARB Inactive LORATADINE 10 MG TABS one tab PO daily LORATADINE 10 MG TABS 945719 LORATADINE Inactive COMPLETE DHA 29-1-200 & 250 MG MISC 1 tab daily COMPLETE DHA 29-1-200 & 250 MG MISC JZPBSR-MTHAB-UKUQA-FA-CA-OMEGA Inactive TYLENOL 325 MG TABS one to two tabs Q4 hours PRN pain TYLENOL 325 MG TABS 773692 ACETAMINOPHEN Inactive FLAGYL 500 MG TAB 1 tablet by mouth three times daily FLAGYL 500 MG TAB 261827 METRONIDAZOLE Inactive MACROBID 100 MG CAPS one tab PO BID MACROBID 100 MG CAPS 3299938 NITROFURANTOIN MONOHYD MACRO Inactive BACTRIM DS 800-160 MG TAB 1 tab by mouth twice daily BACTRIM DS 800-160 MG TAB 295491 TRIMETHOPRIM-SULFAMETHOXAZOLE Inactive Immunizations Vaccine Administration Date Value Standard Description Seasonal influenza vaccine, injectable, containing preservative, for > 3 years old (Afluria, FluLaval, Fluzone, Fluvirin, Fluarix, Agriflu(>=18 yo)) Fluzone (>3 yrs.) [[id number]] Influenza, seasonal, injectable hepatitis B vaccine series [...] Value Unit Range Description Lab Report: Chlamydia/GC APTIMA/90957 - Lab chlamydia DNA probe NOT DETECTED NOT DETECTED Lab Report: Chlamydia/GC APTIMA/23488 - Microbiology Neisseria gonorrhoeae DNA probe NOT DETECTED NOT DETECTED Lab Report: [facility] [place] Chemistry human chorionic gonadotropin, urine, qualitative (urine test) Negative Negative Office Procedure: Colposcopy - Chemistry human chorionic gonadotropin, urine, qualitative (urine test) neg Encounters Code Encounter Date Provider Facility CPT-55733 Level 3 Est. Patient 12:23:10 GEAR HOBBER SET UP OPERATOR Osmany Corea DO [facility] Procedures Code Procedure Name Date Entry Date Standard Description CPT-J1050 Depo Provera 150 mg (Medroxyprogesterone) 13:00:11 CDT CPT-27647 Abx/Therapy Injection 13:00:11 CDT CPT-J1050 Depo Provera 150 mg (Medroxyprogesterone) 09:36:26 CDT CPT-OV Office Visit 14:05:04 CDT CPT-83794 [place] of cervix w bx ECC 13:52:03 CDT CPT-OV Office Visit 13:52:02 CDT CPT-J1050 Depo Provera 150 mg (Medroxyprogesterone) 15:37:52 GEAR HOBBER SET UP OPERATOR CPT-21816 Abx/Therapy Injection 15:37:52 GEAR HOBBER SET UP OPERATOR CPT-PV Prev. Care Visit 11:12:44 GEAR HOBBER SET UP OPERATOR CPT-75118 Spec Collection and Handling Fee 11:10:58 GEAR HOBBER SET UP OPERATOR CPT-J1050 Depo Provera 150 mg (Medroxyprogesterone) 12:33:33 CDT CPT-19206 Abx/Therapy Injection 12:33:33 CDT CPT-J1050 Depo Provera 150 mg (Medroxyprogesterone) 11:47:45 GEAR HOBBER SET UP OPERATOR CPT-28059 Abx/Therapy Injection 11:47:45 GEAR HOBBER SET UP OPERATOR CPT-J1050 Depo Provera 150 mg (Medroxyprogesterone) 10:35:27 GEAR HOBBER SET UP OPERATOR CPT-47316 Abx/Therapy Injection 10:35:27 GEAR HOBBER SET UP OPERATOR CPT-J1050 Depo Provera 150 mg (Medroxyprogesterone) 13:36:14 CDT CPT-34561 Abx/Therapy Injection 13:36:14 CDT CPT-J1050 Depo Provera 150 mg (Medroxyprogesterone) 16:53:25 CDT CPT-95715 Abx/Therapy Injection 16:53:25 CDT CPT-38681 Visit 10:35:01 GEAR HOBBER SET UP OPERATOR CPT-OV Office Visit 11:07:54 GEAR HOBBER SET UP OPERATOR CPT-47744 Visit 11:03:41 GEAR HOBBER SET UP OPERATOR CPT-14549 Visit 15:16:37 GEAR HOBBER SET UP OPERATOR CPT-90960 Visit 17:02:15 GEAR HOBBER SET UP OPERATOR CPT-39077 Visit 11:11:34 GEAR HOBBER SET UP OPERATOR CPT-68875 [facility] transvag <14 weeks 16:17:14 CDT CPT-32126 Visit 11:24:40 CDT CPT-15663 Visit 18:13:37 CDT CPT-95277 Administration single or combination vaccine inc oral 12 :28:46 CDT CPT-55248 Influenza split virus > age 3 12:28:46 CDT CPT-85833 Sono [facility] comp > 14 weeks 17:05:09 CDT
--- OUTSIDE RECORDS SUMMARY | 2017-01-23 14:31 | XMS REPORT | Clinical Summary ---
Author Author Admin, SABRA Organization [facility] Address Unknown Phone Unavailable Allergies, Adverse Reactions, [...] Lower back pain 724.2 Active Mirlande Amaro NAPHTHALENE OPERATOR HELPER Lumbago DYSURIA 788.1 Active Mirlande Amaro APRN [...] 1 tab by mouth twice daily TRIMETHOPRIM-SULFAMETHOXAZOLE 01497526039 No Longer Active Cher Wright LPN Active DEPO-PROVERA 150 MG/ML SUPENSION 1 IM injection q 3 month MEDROXYPROGEST LYNDSEY (CONTRACEP) 18796514352 Active Cher Wright LPN Active FLAGYL 500 MG TAB 1 tablet by mouth three times daily METRONIDAZOLE 72345947797 No Longer Active Aditi Chino MD Active TYLENOL 325 MG TABS one to two tabs Q4 hours PRN pain ACETAMINOPHEN 94289350486 No Longer Active Kirstin Yokum NAPHTHALENE OPERATOR HELPER Active COMPLETE DHA 29-1-200 & 250 MG MISC 1 tab daily KRISSY- [id number]-IVRGC-VE-CA-OMEGA 39356616930 No Longer Active Kirstin Yokum NAPHTHALENE OPERATOR HELPER Active LORATADINE 10 MG TABS one tab PO daily LORATADINE 70040670128 No Longer Active Kirstin Yokum NAPHTHALENE OPERATOR HELPER Active GNP SINUS WASH NETI POT 2300-700 MG KIT rinse sinuses BID PRN SODIUM CHLORIDE-SODIUM BICARB 53240138242 No Longer Active Kirstin Yokum NAPHTHALENE OPERATOR HELPER Active SOMA 350 MG TAB 1 tablet every 6 hours as needed for muscle pain CARISOPRODOL 02086618296 No Longer Active Kirstin Yokum NAPHTHALENE OPERATOR HELPER Active MELOXICAM 15 MG TABS 1 tab by mount every day for pain with food MELOXICAM 00785308359 No Longer Active Kirstin Yokum NAPHTHALENE OPERATOR HELPER Active MACROBID 100 MG CAPS one tab PO BID NITROFURANTOIN MONOHYD MACRO 08974841430 No Longer Active Aditi Chino MD Active BENADRYL 25 MG CAPS 1 to 2 caps every 6 hours PRN DIPHENHYDRAMINE HCL 75707883642 No Longer Active Aditi Chino MD Active MUCINEX 600 MG [id number] 1 tab every 12 hours PRN GUAIFENESIN 23048793209 No Longer Active Aditi Chino MD Active MUCINEX 600 MG [id number]-SQN 1 tab every 12 hours PRN MUCINEX 600 MG HU84A-UAH GUAIFENESIN Inactive BENADRYL 25 MG CAPS 1 to 2 caps every 6 hours PRN BENADRYL 25 MG CAPS 2865453 DIPHENHYDRAMINE HCL Inactive MELOXICAM 15 MG TABS 1 tab by mount every day for pain with food MELOXICAM 15 MG TABS 611197 MELOXICAM Inactive SOMA 350 MG TAB 1 tablet every 6 hours as needed for muscle pain SOMA 350 MG TAB 710873 CARISOPRODOL Inactive GNP SINUS WASH NETI POT 2300-700 MG KIT rinse sinuses BID PRN GNP SINUS WASH NETI POT 2300-700 MG KIT SODIUM CHLORIDE-SODIUM BICARB Inactive LORATADINE 10 MG TABS one tab PO daily LORATADINE 10 MG TABS 327996 LORATADINE Inactive COMPLETE DHA 29-1-200 & 250 MG MISC 1 tab daily COMPLETE DHA 29-1-200 & 250 MG MISC [id number]-[id number]-ZEPZU-FA-CA-OMEGA Inactive TYLENOL 325 MG TABS one to two tabs Q4 hours PRN pain TYLENOL 325 MG TABS 517813 ACETAMINOPHEN Inactive FLAGYL 500 MG TAB 1 tablet by mouth three times daily FLAGYL 500 MG TAB 724831 METRONIDAZOLE Inactive MACROBID 100 MG CAPS one tab PO BID MACROBID 100 MG CAPS 6609639 NITROFURANTOIN MONOHYD MACRO Inactive BACTRIM DS 800-160 MG TAB 1 tab by mouth twice daily BACTRIM DS 800-160 MG TAB 291940 TRIMETHOPRIM-SULFAMETHOXAZOLE Inactive Immunizations Vaccine Administration Date Value Standard Description Seasonal influenza vaccine, injectable, containing preservative, for > 3 years old (Afluria, FluLaval, Fluzone, Fluvirin, Fluarix, Agriflu(>=18 yo)) Fluzone (>3 yrs.) [[id number]] Influenza, seasonal, injectable hepatitis B vaccine series [...] Value Unit Range Description Lab Report: Chlamydia/GC APTIMA/30331 - Lab chlamydia DNA probe NOT DETECTED NOT DETECTED chlamydia DNA probe NOT DETECTED NOT DETECTED Lab Report: Chlamydia/GC APTIMA/71969 - Microbiology Neisseria gonorrhoeae DNA probe NOT [...] nitrite, urine, semiquantitative Negative Negative Lab Report: [facility] - Chemistry human chorionic gonadotropin, urine, qualitative (urine test) Negative Negative Office Procedure: Colposcopy - Chemistry human chorionic gonadotropin, urine, qualitative (urine test) neg Encounters Code Encounter Date Provider Facility CPT-33292 Level 3 Est. Patient 14:17:14 CDT Mirlande Amaro APRN [facility] CPT-88705 Level 3 Est. Patient 12:23:10 TAX RECORD CLERK Osmany Corea DO [facility] Procedures Code Procedure Name Date Entry Date Standard Description CPT-J1050 Depo Provera 150 mg (Medroxyprogesterone) 13:00:11 CDT CPT-00284 Abx/Therapy Injection 13:00:11 CDT CPT-J1050 Depo Provera 150 mg (Medroxyprogesterone) 09:36:26 CDT CPT-OV Office Visit 14:05:04 CDT CPT-17007 [place] of cervix w bx ECC 13:52:03 CDT CPT-OV Office Visit 13:52:02 CDT CPT-J1050 Depo Provera 150 mg (Medroxyprogesterone) 15:37:52 TAX RECORD CLERK CPT-76922 Abx/Therapy Injection 15:37:52 TAX RECORD CLERK CPT-PV Prev. Care Visit 11:12:44 TAX RECORD CLERK CPT-76628 Spec Collection and Handling Fee 11:10:58 TAX RECORD CLERK CPT-J1050 Depo Provera 150 mg (Medroxyprogesterone) 12:33:33 CDT CPT-15974 Abx/Therapy Injection 12:33:33 CDT CPT-J1050 Depo Provera 150 mg (Medroxyprogesterone) 11:47:45 TAX RECORD CLERK CPT-81184 Abx/Therapy Injection 11:47:45 TAX RECORD CLERK CPT-J1050 Depo Provera 150 mg (Medroxyprogesterone) 10:35:27 TAX RECORD CLERK CPT-71850 Abx/Therapy Injection 10:35:27 TAX RECORD CLERK CPT-J1050 Depo Provera 150 mg (Medroxyprogesterone) 13:36:14 CDT CPT-89322 Abx/Therapy Injection 13:36:14 CDT CPT-J1050 Depo Provera 150 mg (Medroxyprogesterone) 16:53:25 CDT CPT-03242 Abx/Therapy Injection 16:53:25 CDT CPT-78535 Visit 10:35:01 TAX RECORD CLERK CPT-OV Office Visit 11:07:54 TAX RECORD CLERK CPT-03290 Visit 11:03:41 TAX RECORD CLERK CPT-53962 Visit 15:16:37 TAX RECORD CLERK CPT-84789 Visit 17:02:15 TAX RECORD CLERK CPT-77665 Visit 11:11:34 TAX RECORD CLERK CPT-73688 [facility] transvag <14 weeks 16:17:14 CDT CPT-49581 Visit 11:24:40 CDT CPT-04553 Visit 18:13:37 CDT CPT-67708 Administration single or combination vaccine inc oral 12 :28:46 CDT CPT-98586 Influenza split virus > age 3 12:28:46 CDT CPT-79864 [facility] comp > 14 weeks 17:05:09 CDT
--- OUTSIDE RECORDS SUMMARY | 2017-01-23 14:31 | XMS REPORT | Clinical Summary ---
Author Author Admin, SABRA Organization [facility] Address Unknown Phone Unavailable Allergies, Adverse Reactions, Alerts Allergy Name Reaction Description Start Date Severity Status Provider No Known Allergies Carlin Najera RN Conditions or Problems Problem Name Problem Code [...] tablet by mouth three times daily METRONIDAZOLE 58742532535 Active Kirstin Yokum BRINE WELL OPERATOR Active TYLENOL 325 MG TABS one to two tabs Q4 hours PRN pain ACETAMINOPHEN 79365006856 No Longer Active Kirstin Yokum BRINE WELL OPERATOR Active COMPLETE DHA 29-1-200 & 250 MG MISC 1 tab daily KRISSY- GZTQJ-IKBPK-CL-CA-OMEGA 05629870457 No Longer Active Kirstin Yokum BRINE WELL OPERATOR Active LORATADINE 10 MG TABS one tab PO daily LORATADINE 69849792171 No Longer Active Kirstin Yokum BRINE WELL OPERATOR Active GNP SINUS WASH NETI POT 2300-700 MG KIT rinse sinuses BID PRN SODIUM CHLORIDE-SODIUM BICARB 03641398591 No Longer Active Kirstin Yokum BRINE WELL OPERATOR Active SOMA 350 MG TAB 1 tablet every 6 hours as needed for muscle pain CARISOPRODOL 31851464514 No Longer Active Kirstin Yokum BRINE WELL OPERATOR Active MELOXICAM 15 MG TABS 1 tab by mount every day for pain with food MELOXICAM 98799554248 No Longer Active Kirstin Yokum BRINE WELL OPERATOR Active MACROBID 100 MG CAPS one tab PO BID NITROFURANTOIN MONOHYD MACRO 56631224065 No Longer Active Aditi Chino MD Active BENADRYL 25 MG CAPS 1 to 2 caps every 6 hours PRN DIPHENHYDRAMINE HCL 40482006237 No Longer Active Aditi Chino MD Active MUCINEX 600 MG [id number]-VPO 1 tab every 12 hours PRN GUAIFENESIN 15170315087 No Longer Active Aditikyleigh Chino MD Active MUCINEX 600 MG [id number]-USH 1 tab every 12 hours PRN MUCINEX 600 MG QC58B-LRV GUAIFENESIN Inactive BENADRYL 25 MG CAPS 1 to 2 caps every 6 hours PRN BENADRYL 25 MG CAPS 0336312 DIPHENHYDRAMINE HCL Inactive MELOXICAM 15 MG TABS 1 tab by mount every day for pain with food MELOXICAM 15 MG TABS 176437 MELOXICAM Inactive SOMA 350 MG TAB 1 tablet every 6 hours as needed for muscle pain SOMA 350 MG TAB 232687 CARISOPRODOL Inactive GNP SINUS WASH NETI POT 2300-700 MG KIT rinse sinuses BID PRN GNP SINUS WASH NETI POT 2300-700 MG KIT SODIUM CHLORIDE-SODIUM BICARB Inactive LORATADINE 10 MG TABS one tab PO daily LORATADINE 10 MG TABS 285377 LORATADINE Inactive COMPLETE BELA DHA 29-1-200 & 250 MG MISC 1 tab daily COMPLETE BELA DHA 29-1-200 & 250 MG MISC LTXBUA-BRAAL-RCMVB-FA-CA-OMEGA Inactive TYLENOL 325 MG TABS one to two tabs Q4 hours PRN pain TYLENOL 325 MG TABS 298426 ACETAMINOPHEN Inactive MACROBID 100 MG CAPS one tab PO BID MACROBID 100 MG CAPS 3142594 NITROFURANTOIN MONOHYD MACRO Inactive Immunizations Vaccine Administration Date Value Standard Description Seasonal influenza vaccine, injectable, containing preservative, for > 3 years old (Afluria, FluLaval, Fluzone, Fluvirin, Fluarix, Agriflu(>=18 yo)) Fluzone (>3 yrs.) [[id number]] Influenza, seasonal, injectable hepatitis B vaccine series no hepatitis B vaccine, unspecified formulation Diagnostic Results Date Name Value Unit Range Description Lab Report: Chlamydia/GC APTIMA/59019 - Lab chlamydia DNA probe NOT DETECTED NOT DETECTED Lab Report: Chlamydia/GC APTIMA/33065 - Microbiology Neisseria gonorrhoeae DNA probe NOT DETECTED NOT DETECTED Encounters Code Encounter Date Provider Facility CPT-80134 Level 3 Est. Patient 12:23:10 TECHNICIAN'S HELPER Osmany Corea DO [facility] Procedures Code Procedure Name Date Entry Date Standard Description CPT-J1050 Depo Provera 150 mg (Medroxyprogesterone) 15:37:52 TECHNICIAN'S HELPER CPT-07646 Abx/Therapy Injection 15:37:52 TECHNICIAN'S HELPER CPT-PV Prev. Care Visit 11:12:44 TECHNICIAN'S HELPER CPT-99060 Spec Collection and Handling Fee 11:10:58 TECHNICIAN'S HELPER CPT-J1050 Depo Provera 150 mg (Medroxyprogesterone) 12:33:33 CDT CPT-02117 Abx/Therapy Injection 12:33:33 CDT CPT-J1050 Depo Provera 150 mg (Medroxyprogesterone) 11:47:45 TECHNICIAN'S HELPER CPT-81180 Abx/Therapy Injection 11:47:45 TECHNICIAN'S HELPER CPT-J1050 Depo Provera 150 mg (Medroxyprogesterone) 10:35:27 TECHNICIAN'S HELPER CPT-79597 Abx/Therapy Injection 10:35:27 TECHNICIAN'S HELPER CPT-J1050 Depo Provera 150 mg (Medroxyprogesterone) 13:36:14 CDT CPT-78552 Abx/Therapy Injection 13:36:14 CDT CPT-J1050 Depo Provera 150 mg (Medroxyprogesterone) 16:53:25 CDT CPT-57824 Abx/Therapy Injection 16:53:25 CDT CPT-29597 Visit 10:35:01 TECHNICIAN'S HELPER CPT-OV Office Visit 11:07:54 TECHNICIAN'S HELPER CPT-38866 Visit 11:03:41 TECHNICIAN'S HELPER CPT-05176 Visit 15:16:37 TECHNICIAN'S HELPER CPT-61797 Visit 17:02:15 TECHNICIAN'S HELPER CPT-40009 Visit 11:11:34 TECHNICIAN'S HELPER CPT-18770 [facility] transvag <14 weeks 16:17:14 CDT CPT-63585 Visit 11:24:40 CDT CPT-88298 Visit 18:13:37 CDT CPT-25212 Administration single or combination vaccine inc oral 12 :28:46 CDT CPT-84828 Influenza split virus > age 3 12:28:46 CDT CPT-49743 [facility] comp > 14 weeks 17:05:09 CDT
--- OUTSIDE RECORDS SUMMARY | 2017-01-23 14:31 | XMS REPORT ---
Author Author NEGRITO MITCHELL [facility] Address [address] [place] [address] Care Team Providers Care Electrical Tech Name Role Phone NEGRITO MITCHELL Unavailable PROBLEMS Type Condition ICD9-CM Code IPE91-RT Code Onset Dates Condition Status SNOMED Code Problem Seasonal allergic rhinitis, unspecified allergic rhinitis trigger J30.2 Active 723770963 Problem Menorrhagia with irregular cycle N92.1 Active 20188137 ALLERGIES Substance Reaction Event Type Date Status N.K.D.A. Unknown Non Drug Allergy May, Unknown SOCIAL HISTORY No smoking Hx information available PLAN OF CARE VITAL SIGNS Height 61.25 in 2016-05-07 Weight 111.0 lbs 2016-05-07 Temperature 98.4 degrees Fahrenheit 2016-05-07 Heart Rate 80 bpm 2016-05-07 Respiratory Rate 18 2016-05-07 BMI 20.80 kg/m2 2016-05-07 Blood pressure systolic 120 mmHg 2016-05-07 Blood pressure diastolic 66 mmHg 2016-05-07 MEDICATIONS Medication Instructions Dosage Frequency Start Date End Date Duration Status PredniSONE 20 mg Orally Once a day, voucher 2 tablets May,May 05 days Active RESULTS No Results PROCEDURES Procedure Date Ordered Related Diagnosis Body Site Office Visit, Est Pt., Level 3 May 07, 2016 IMMUNIZATIONS No Known Immunizations
--- OUTSIDE RECORDS SUMMARY | 2017-01-23 14:31 | XMS REPORT | Clinical Summary ---
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 Aditi Chino MD Papanicolaou smear of anus with high grade squamous intraepithelial lesion (HGSIL) HPV 079.4 Active Aditi Chino MD Human papillomavirus infection in conditions classified elsewhere and of unspecified site Tobacco abuse 305.1 Active Aditi Chino MD Tobacco use disorder , NORMAL, MULTIGRAVIDA ICD-V22.1 Inactive Aditi Chino MD TOB USE D/O COMP PG /PP ANTEPARTM COND/COMP ICD-649.03 06/17 Mckayla Chino MD OTHER SPECIFED COMPLICATION ANTEPARTUM ICD-646.83 [...] tablet by mouth three times daily METRONIDAZOLE 16078462422 No Longer Active Aditi Chino MD Active TYLENOL 325 MG TABS one to two tabs Q4 hours PRN pain ACETAMINOPHEN 72333739687 No Longer Active Kirstin Yokum PILE DRIVER OPERATOR HELPER Active COMPLETE BELA DHA 29-1-200 & 250 MG MISC 1 tab daily KRISSY- QDMEW-TFTBH-KO-CA-OMEGA 37876691044 No Longer Active Kirstin Yokum PILE DRIVER OPERATOR HELPER Active LORATADINE 10 MG TABS one tab PO daily LORATADINE 80639141399 No Longer Active Kirstin Yokum PILE DRIVER OPERATOR HELPER Active GNP SINUS WASH NETI POT 2300-700 MG KIT rinse sinuses BID PRN SODIUM CHLORIDE-SODIUM BICARB 41734761773 No Longer Active Kirstin Yokum PILE DRIVER OPERATOR HELPER Active SOMA 350 MG TAB 1 tablet every 6 hours as needed for muscle pain CARISOPRODOL 53679349176 No Longer Active Kirstin Yokum PILE DRIVER OPERATOR HELPER Active MELOXICAM 15 MG TABS 1 tab by mount every day for pain with food MELOXICAM 79220263495 No Longer Active Kirstin Yokum PILE DRIVER OPERATOR HELPER Active MACROBID 100 MG CAPS one tab PO BID NITROFURANTOIN MONOHYD MACRO 49197479443 No Longer Active Aditi Chino MD Active BENADRYL 25 MG CAPS 1 to 2 caps every 6 hours PRN DIPHENHYDRAMINE HCL 22563495049 No Longer Active Aditi Chino MD Active MUCINEX 600 MG [id number]-YOQ 1 tab every 12 hours PRN GUAIFENESIN 49252839553 No Longer Active Aditi Chino MD Active MUCINEX 600 MG GM15Z-HWY 1 tab every 12 hours PRN MUCINEX 600 MG DU15W-ONP GUAIFENESIN Inactive BENADRYL 25 MG CAPS 1 to 2 caps every 6 hours PRN BENADRYL 25 MG CAPS 3344529 DIPHENHYDRAMINE HCL Inactive MELOXICAM 15 MG TABS 1 tab by mount every day for pain with food MELOXICAM 15 MG TABS 434044 MELOXICAM Inactive SOMA 350 MG TAB 1 tablet every 6 hours as needed for muscle pain SOMA 350 MG TAB 285187 CARISOPRODOL Inactive GNP SINUS WASH NETI POT 2300-700 MG KIT rinse sinuses BID PRN GNP SINUS WASH NETI POT 2300-700 MG KIT SODIUM CHLORIDE-SODIUM BICARB Inactive LORATADINE 10 MG TABS one tab PO daily LORATADINE 10 MG TABS 343333 LORATADINE Inactive COMPLETE BELA DHA 29-1-200 & 250 MG MISC 1 tab daily COMPLETE BELA DHA 29-1-200 & 250 MG MISC PFJSZV-PPHVW-LKRGO-FA-CA-OMEGA Inactive TYLENOL 325 MG TABS one to two tabs Q4 hours PRN pain TYLENOL 325 MG TABS 537414 ACETAMINOPHEN Inactive FLAGYL 500 MG TAB 1 tablet by mouth three times daily FLAGYL 500 MG TAB 589881 METRONIDAZOLE Inactive MACROBID 100 MG CAPS one tab PO BID MACROBID 100 MG CAPS 6971807 NITROFURANTOIN MONOHYD MACRO Inactive Immunizations Vaccine Administration Date Value Standard Description Seasonal influenza vaccine, injectable, containing preservative, for > 3 years old (Afluria, FluLaval, Fluzone, Fluvirin, Fluarix, Agriflu(>=18 yo)) Fluzone (>3 yrs.) [[id number]] Influenza, seasonal, injectable hepatitis B vaccine series no hepatitis B vaccine, unspecified formulation Vital Signs Date Name Value Unit Range Description blood pressure, diastolic - 8462-4 72 mm[Hg] [...] Value Unit Range Description Lab Report: Chlamydia/GC APTIMA/62934 - Lab chlamydia DNA probe NOT DETECTED NOT DETECTED Lab Report: Chlamydia/GC APTIMA/69659 - Microbiology Neisseria gonorrhoeae DNA probe NOT DETECTED NOT DETECTED Office Procedure: Colposcopy - Chemistry human chorionic gonadotropin, urine, qualitative (urine test) neg Encounters Code Encounter Date Provider Facility CPT-31338 Level 3 Est. Patient 12:23:10 BURR BENCH HAND Osmany Corea DO [facility] Procedures Code Procedure Name Date Entry Date Standard Description CPT-OV Office Visit 14:05:04 CDT CPT-89910 [place] of cervix w bx ECC 13:52:03 CDT CPT-OV Office Visit 13:52:02 CDT CPT-J1050 Depo Provera 150 mg (Medroxyprogesterone) 15:37:52 BURR BENCH HAND CPT-57543 Abx/Therapy Injection 15:37:52 BURR BENCH HAND CPT-PV Prev. Care Visit 11:12:44 BURR BENCH HAND CPT-23889 Spec Collection and Handling Fee 11:10:58 BURR BENCH HAND CPT-J1050 Depo Provera 150 mg (Medroxyprogesterone) 12:33:33 CDT CPT-79224 Abx/Therapy Injection 12:33:33 CDT CPT-J1050 Depo Provera 150 mg (Medroxyprogesterone) 11:47:45 BURR BENCH HAND CPT-12974 Abx/Therapy Injection 11:47:45 BURR BENCH HAND CPT-J1050 Depo Provera 150 mg (Medroxyprogesterone) 10:35:27 BURR BENCH HAND CPT-34643 Abx/Therapy Injection 10:35:27 BURR BENCH HAND CPT-J1050 Depo Provera 150 mg (Medroxyprogesterone) 13:36:14 CDT CPT-60426 Abx/Therapy Injection 13:36:14 CDT CPT-J1050 Depo Provera 150 mg (Medroxyprogesterone) 16:53:25 CDT CPT-16511 Abx/Therapy Injection 16:53:25 CDT CPT-26907 Visit 10:35:01 BURR BENCH HAND CPT-OV Office Visit 11:07:54 BURR BENCH HAND CPT-25659 Visit 11:03:41 BURR BENCH HAND CPT-45760 Visit 15:16:37 BURR BENCH HAND CPT-65160 Visit 17:02:15 BURR BENCH HAND CPT-27197 Visit 11:11:34 BURR BENCH HAND CPT-99481 [facility] transvag <14 weeks 16:17:14 CDT CPT-13852 Visit 11:24:40 CDT CPT-83237 Visit 18:13:37 CDT CPT-47465 Administration single or combination vaccine inc oral 12 :28:46 CDT CPT-74413 Influenza split virus > age 3 12:28:46 CDT CPT-94052 [facility] comp > 14 weeks 17:05:09 CDT
--- OUTSIDE RECORDS SUMMARY | 2017-01-23 14:32 | XMS REPORT | Clinical Summary ---
Author Author Admin, SABRA Organization [facility] Address Unknown Phone Unavailable Allergies, Adverse Reactions, [...] OF NASAL CAVITY AND SINUSES ICD-478.19 Inactive Osmayn Corea DO Gynecological examination, routine ICD-V72.3 Inactive Aditi Chino MD Medication List Medication Instructions Start Date Stop Date Generic Name NDC Status Provider Patient Instruction DEPO-PROVERA 150 MG/ML SUPENSION 1 IM injection q 3 month MEDROXYPROGEST LYNDSEY (CONTRACEP) 90394795430 Active Cher Wright FAST FOOD SALES ASSISTANT Active FLAGYL 500 MG TAB 1 tablet by mouth three times daily METRONIDAZOLE 27000069112 No Longer Active Aditi Chino MD Active TYLENOL 325 MG TABS one to two tabs Q4 hours PRN pain ACETAMINOPHEN 51018690172 No Longer Active Kirstin Yokum ASSEMBLER STEAM AND GAS TURBINE Active COMPLETE DHA 29-1-200 & 250 MG MISC 1 tab daily PRENAT- ONZCI-RTUNE-BS-CA-OMEGA 61736635226 No Longer Active Kirstin Yokum ASSEMBLER STEAM AND GAS TURBINE Active LORATADINE 10 MG TABS one tab PO daily LORATADINE 94328895262 No Longer Active Kirstin Yokum ASSEMBLER STEAM AND GAS TURBINE Active GNP SINUS WASH NETI POT 2300-700 MG KIT rinse sinuses BID PRN SODIUM CHLORIDE-SODIUM BICARB 24758773461 No Longer Active Kirstin Yokum ASSEMBLER STEAM AND GAS TURBINE Active SOMA 350 MG TAB 1 tablet every 6 hours as needed for muscle pain CARISOPRODOL 04951835200 No Longer Active Kirstin Yokum ASSEMBLER STEAM AND GAS TURBINE Active MELOXICAM 15 MG TABS 1 tab by mount every day for pain with food MELOXICAM 20176978195 No Longer Active Kirstin Yokum ASSEMBLER STEAM AND GAS TURBINE Active MACROBID 100 MG CAPS one tab PO BID NITROFURANTOIN MONOHYD MACRO 76394202652 No Longer Active Adtii Chino MD Active BENADRYL 25 MG CAPS 1 to 2 caps every 6 hours PRN DIPHENHYDRAMINE HCL 47986293099 No Longer Active Aditi Chino MD Active MUCINEX 600 MG [id number] 1 tab every 12 hours PRN GUAIFENESIN 14207682558 No Longer Active Aditi Chino MD Active MUCINEX 600 MG IP46H-IIZ 1 tab every 12 hours PRN MUCINEX 600 MG DC02E-RFS GUAIFENESIN Inactive BENADRYL 25 MG CAPS 1 to 2 caps every 6 hours PRN BENADRYL 25 MG CAPS 9084580 DIPHENHYDRAMINE HCL Inactive MELOXICAM 15 MG TABS 1 tab by mount every day for pain with food MELOXICAM 15 MG TABS 640752 MELOXICAM Inactive SOMA 350 MG TAB 1 tablet every 6 hours as needed for muscle pain SOMA 350 MG TAB 128350 CARISOPRODOL Inactive GNP SINUS WASH NETI POT 2300-700 MG KIT rinse sinuses BID PRN GNP SINUS WASH NETI POT 2300-700 MG KIT SODIUM CHLORIDE-SODIUM BICARB Inactive LORATADINE 10 MG TABS one tab PO daily LORATADINE 10 MG TABS 378204 LORATADINE Inactive COMPLETE DHA 29-1-200 & 250 MG MISC 1 tab daily COMPLETE DHA 29-1-200 & 250 MG MISC [id number]-[id number]-FA-CA-OMEGA Inactive TYLENOL 325 MG TABS one to two tabs Q4 hours PRN pain TYLENOL 325 MG TABS 736499 ACETAMINOPHEN Inactive FLAGYL 500 MG TAB 1 tablet by mouth three times daily FLAGYL 500 MG TAB 733237 METRONIDAZOLE Inactive MACROBID 100 MG CAPS one tab PO BID MACROBID 100 MG CAPS 8967134 NITROFURANTOIN MONOHYD MACRO Inactive Immunizations Vaccine Administration Date Value Standard Description Seasonal influenza vaccine, injectable, containing preservative, for > 3 years old (Afluria, FluLaval, Fluzone, Fluvirin, Fluarix, Agriflu(>=18 yo)) Fluzone (>3 yrs.) [[id number]] Influenza, seasonal, injectable hepatitis B vaccine series [...] Value Unit Range Description Lab Report: Chlamydia/GC APTIMA/44672 - Lab chlamydia DNA probe NOT DETECTED NOT DETECTED Lab Report: Chlamydia/GC APTIMA/77277 - Microbiology Neisseria gonorrhoeae DNA probe NOT DETECTED NOT DETECTED Lab Report: [facility] - Chemistry human chorionic gonadotropin, urine, qualitative (urine test) Negative Negative Office Procedure: Colposcopy - Chemistry human chorionic gonadotropin, urine, qualitative (urine test) neg Encounters Code Encounter Date Provider Facility CPT-51514 Level 3 Est. Patient 12:23:10 PHLEBOTOMY MANAGER Osmany Corea DO [facility] Procedures Code Procedure Name Date Entry Date Standard Description CPT-J1050 Depo Provera 150 mg (Medroxyprogesterone) 13:00:11 CDT CPT-71040 Abx/Therapy Injection 13:00:11 CDT CPT-J1050 Depo Provera 150 mg (Medroxyprogesterone) 09:36:26 CDT CPT-OV Office Visit 14:05:04 CDT CPT-79743 [place] of cervix w bx ECC 13:52:03 CDT CPT-OV Office Visit 13:52:02 CDT CPT-J1050 Depo Provera 150 mg (Medroxyprogesterone) 15:37:52 PHLEBOTOMY MANAGER CPT-74955 Abx/Therapy Injection 15:37:52 PHLEBOTOMY MANAGER CPT-PV Prev. Care Visit 11:12:44 PHLEBOTOMY MANAGER CPT-41413 Spec Collection and Handling Fee 11:10:58 PHLEBOTOMY MANAGER CPT-J1050 Depo Provera 150 mg (Medroxyprogesterone) 12:33:33 CDT CPT-28776 Abx/Therapy Injection 12:33:33 CDT CPT-J1050 Depo Provera 150 mg (Medroxyprogesterone) 11:47:45 PHLEBOTOMY MANAGER CPT-11289 Abx/Therapy Injection 11:47:45 PHLEBOTOMY MANAGER CPT-J1050 Depo Provera 150 mg (Medroxyprogesterone) 10:35:27 PHLEBOTOMY MANAGER CPT-61287 Abx/Therapy Injection 10:35:27 PHLEBOTOMY MANAGER CPT-J1050 Depo Provera 150 mg (Medroxyprogesterone) 13:36:14 CDT CPT-30004 Abx/Therapy Injection 13:36:14 CDT CPT-J1050 Depo Provera 150 mg (Medroxyprogesterone) 16:53:25 CDT CPT-09068 Abx/Therapy Injection 16:53:25 CDT CPT-90728 Visit 10:35:01 PHLEBOTOMY MANAGER CPT-OV Office Visit 11:07:54 PHLEBOTOMY MANAGER CPT-72491 Visit 11:03:41 PHLEBOTOMY MANAGER CPT-34984 Visit 15:16:37 PHLEBOTOMY MANAGER CPT-64484 Visit 17:02:15 PHLEBOTOMY MANAGER CPT-18837 Visit 11:11:34 PHLEBOTOMY MANAGER CPT-51817 [facility] transvag <14 weeks 16:17:14 CDT CPT-64841 Visit 11:24:40 CDT CPT-71701 Visit 18:13:37 CDT CPT-63489 Administration single or combination vaccine inc oral 12 :28:46 CDT CPT-49875 Influenza split virus > age 3 12:28:46 CDT CPT-02270 [facility] comp > 14 weeks 17:05:09 CDT
--- OUTSIDE RECORDS SUMMARY | 2017-01-23 14:32 | XMS REPORT | Clinical Summary ---
Author Author Admin, SABRA Organization [facility] Address Unknown Phone Unavailable Allergies, Adverse Reactions, [...] tablet by mouth three times daily METRONIDAZOLE 21094006353 Active Kirstin Yokum DUCK FARMER Active TYLENOL 325 MG TABS one to two tabs Q4 hours PRN pain ACETAMINOPHEN 73160825445 No Longer Active Kirstin Yokum DUCK FARMER Active COMPLETE DHA 29-1-200 & 250 MG MISC 1 tab daily KRISSY- ZSTFZ-IJJUI-UZ-CA-OMEGA 98655937565 No Longer Active Kirstin Yokum DUCK FARMER Active LORATADINE 10 MG TABS one tab PO daily LORATADINE 03534470965 No Longer Active Kirstin Yokum DUCK FARMER Active GNP SINUS WASH NETI POT 2300-700 MG KIT rinse sinuses BID PRN SODIUM CHLORIDE-SODIUM BICARB 00704041902 No Longer Active Kirstin Yokum DUCK FARMER Active SOMA 350 MG TAB 1 tablet every 6 hours as needed for muscle pain CARISOPRODOL 25037276515 No Longer Active Kirstin Yokum DUCK FARMER Active MELOXICAM 15 MG TABS 1 tab by mount every day for pain with food MELOXICAM 52352823813 No Longer Active Kirstin Yokum DUCK FARMER Active MACROBID 100 MG CAPS one tab PO BID NITROFURANTOIN MONOHYD MACRO 36528369625 No Longer Active Aditi Chino MD Active BENADRYL 25 MG CAPS 1 to 2 caps every 6 hours PRN DIPHENHYDRAMINE HCL 54266190492 No Longer Active Aditi Chino MD Active MUCINEX 600 MG AM32Z-UHB 1 tab every 12 hours PRN GUAIFENESIN 95174520572 No Longer Active Aditikyleigh Chino MD Active MUCINEX 600 MG WN72W-JAF 1 tab every 12 hours PRN MUCINEX 600 MG GD94E-YLJ GUAIFENESIN Inactive BENADRYL 25 MG CAPS 1 to 2 caps every 6 hours PRN BENADRYL 25 MG CAPS 8671320 DIPHENHYDRAMINE HCL Inactive MELOXICAM 15 MG TABS 1 tab by mount every day for pain with food MELOXICAM 15 MG TABS 412533 MELOXICAM Inactive SOMA 350 MG TAB 1 tablet every 6 hours as needed for muscle pain SOMA 350 MG TAB 614756 CARISOPRODOL Inactive GNP SINUS WASH NETI POT 2300-700 MG KIT rinse sinuses BID PRN GNP SINUS WASH NETI POT 2300-700 MG KIT SODIUM CHLORIDE-SODIUM BICARB Inactive LORATADINE 10 MG TABS one tab PO daily LORATADINE 10 MG TABS 227200 LORATADINE Inactive COMPLETE BELA DHA 29-1-200 & 250 MG MISC 1 tab daily COMPLETE BELA DHA 29-1-200 & 250 MG MISC [id number]-IRJJK-MJAFJ-FA-CA-OMEGA Inactive TYLENOL 325 MG TABS one to two tabs Q4 hours PRN pain TYLENOL 325 MG TABS 497642 ACETAMINOPHEN Inactive MACROBID 100 MG CAPS one tab PO BID MACROBID 100 MG CAPS 8953902 NITROFURANTOIN MONOHYD MACRO Inactive Immunizations Vaccine Administration Date Value Standard Description Seasonal influenza vaccine, injectable, containing preservative, for > 3 years old (Afluria, FluLaval, Fluzone, Fluvirin, Fluarix, Agriflu(>=18 yo)) Fluzone (>3 yrs.) [[id number]] Influenza, seasonal, injectable hepatitis B vaccine series no hepatitis B vaccine, unspecified formulation Diagnostic Results Date Name Value Unit Range Description Lab Report: Chlamydia/GC APTIMA/69900 - Lab chlamydia DNA probe NOT DETECTED NOT DETECTED Lab Report: Chlamydia/GC APTIMA/57208 - Microbiology Neisseria gonorrhoeae DNA probe NOT DETECTED NOT DETECTED Encounters Code Encounter Date Provider Facility CPT-57133 Level 3 Est. 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 Care Visit 11:12:44 SUPERVISOR ADVERTISING DISPATCH CLERKS CPT-97838 Spec Collection and Handling Fee 11:10:58 SUPERVISOR ADVERTISING DISPATCH CLERKS CPT-J1050 Depo Provera 150 mg (Medroxyprogesterone) 12:33:33 CDT CPT-81498 Abx/Therapy Injection 12:33:33 CDT CPT-J1050 Depo Provera 150 mg (Medroxyprogesterone) 11:47:45 SUPERVISOR ADVERTISING DISPATCH CLERKS CPT-55232 Abx/Therapy Injection 11:47:45 SUPERVISOR ADVERTISING DISPATCH CLERKS CPT-J1050 Depo Provera 150 mg (Medroxyprogesterone) 10:35:27 SUPERVISOR ADVERTISING DISPATCH CLERKS CPT-05646 Abx/Therapy Injection 10:35:27 SUPERVISOR ADVERTISING DISPATCH CLERKS CPT-J1050 Depo Provera 150 mg (Medroxyprogesterone) 13:36:14 CDT CPT-81233 Abx/Therapy Injection 13:36:14 CDT CPT-J1050 Depo Provera 150 mg (Medroxyprogesterone) 16:53:25 CDT CPT-19507 Abx/Therapy Injection 16:53:25 CDT CPT-45476 Visit 10:35:01 SUPERVISOR ADVERTISING DISPATCH CLERKS CPT-OV Office Visit 11:07:54 SUPERVISOR ADVERTISING DISPATCH CLERKS CPT-84442 Visit 11:03:41 SUPERVISOR ADVERTISING DISPATCH CLERKS CPT-17803 Visit 15:16:37 SUPERVISOR ADVERTISING DISPATCH CLERKS CPT-53480 Visit 17:02:15 SUPERVISOR ADVERTISING DISPATCH CLERKS CPT-06373 Visit 11:11:34 SUPERVISOR ADVERTISING DISPATCH CLERKS CPT-08125 [facility] transvag <14 weeks 16:17:14 CDT CPT-85203 Visit 11:24:40 CDT CPT-61236 Visit 18:13:37 CDT CPT-86520 Administration single or combination vaccine inc oral 12 :28:46 CDT CPT-29950 Influenza split virus > age 3 12:28:46 CDT CPT-43935 [facility] comp > 14 weeks 17:05:09 CDT
--- OUTSIDE RECORDS SUMMARY | 2017-01-23 14:33 | XMS REPORT | Clinical Summary ---
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.73 Resolved Adtii Chino MD Other placental conditions affecting management [...] Lower back pain 724.2 Active Jillina Frajames AS400 DEVELOPER Lumbago DYSURIA 788.1 Active Jillcarla Frajames AS400 DEVELOPER Dysuria URI 465.9 Active Osmany Corea DO [...] then one daily for three days PREDNISONE 72063877739 Active Osmany Corea DO Active BACTRIM DS 800-160 MG TAB 1 tab by mouth twice daily TRIMETHOPRIM-SULFAMETHOXAZOLE 96756879671 No Longer Active Cher Wright LPN Active DEPO-PROVERA 150 MG/ML SUPENSION 1 IM injection q 3 month MEDROXYPROGEST LYNDSEY (CONTRACEP) 25727303864 Active Cher Kyle SPECIAL EFFECTS DESIGNER Active FLAGYL 500 MG TAB 1 tablet by mouth three times daily METRONIDAZOLE 72008503187 No Longer Active Aditi Chino MD Active TYLENOL 325 MG TABS one to two tabs Q4 hours PRN pain ACETAMINOPHEN 20999123999 No Longer Active Kirstin Yokum AS400 DEVELOPER Active COMPLETE DHA 29-1-200 & 250 MG MISC 1 tab daily PRENAT- AWPWD-RDDQD-DR-CA-OMEGA 63992124948 No Longer Active Kirstin Yokum AS400 DEVELOPER Active LORATADINE 10 MG TABS one tab PO daily LORATADINE 04246103225 No Longer Active Kirstin Yokum AS400 DEVELOPER Active GNP SINUS WASH NETI POT 2300-700 MG KIT rinse sinuses BID PRN SODIUM CHLORIDE-SODIUM BICARB 09992275310 No Longer Active Kirstin Yokum AS400 DEVELOPER Active SOMA 350 MG TAB 1 tablet every 6 hours as needed for muscle pain CARISOPRODOL 29924812474 No Longer Active Kirstin Yokum AS400 DEVELOPER Active MELOXICAM 15 MG TABS 1 tab by mount every day for pain with food MELOXICAM 74350350125 No Longer Active Kirstin Yokum AS400 DEVELOPER Active MACROBID 100 MG CAPS one tab PO BID NITROFURANTOIN MONOHYD MACRO 83432221894 No Longer Active Aditi Chino MD Active BENADRYL 25 MG CAPS 1 to 2 caps every 6 hours PRN DIPHENHYDRAMINE HCL 35605356939 No Longer Active Aditi Chino MD Active MUCINEX 600 MG TA26F-HEY 1 tab every 12 hours PRN GUAIFENESIN 34561375739 No Longer Active Aditi Chino MD Active MUCINEX 600 MG AK15K-SVD 1 tab every 12 hours PRN MUCINEX 600 MG ML34P-DNM GUAIFENESIN Inactive BENADRYL 25 MG CAPS 1 to 2 caps every 6 hours PRN BENADRYL 25 MG CAPS DIPHENHYDRAMINE HCL Inactive MELOXICAM 15 MG TABS 1 tab by mount every day for pain with food MELOXICAM 15 MG TABS 238894 MELOXICAM Inactive SOMA 350 MG TAB 1 tablet every 6 hours as needed for muscle pain SOMA 350 MG TAB 577357 CARISOPRODOL Inactive GNP SINUS WASH NETI POT 2300-700 MG KIT rinse sinuses BID PRN GNP SINUS WASH NETI POT 2300-700 MG KIT SODIUM CHLORIDE-SODIUM BICARB Inactive LORATADINE 10 MG TABS one tab PO daily LORATADINE 10 MG TABS 671393 LORATADINE Inactive COMPLETE BELA DHA 29-1-200 & 250 MG MISC 1 tab daily COMPLETE BELA DHA 29-1-200 & 250 MG MISC KZJPIQ-XKKGL-ZJUCB-FA-CA-OMEGA Inactive TYLENOL 325 MG TABS one to two tabs Q4 hours PRN pain TYLENOL 325 MG TABS 225849 ACETAMINOPHEN Inactive FLAGYL 500 MG TAB 1 tablet by mouth three times daily FLAGYL 500 MG TAB 147281 METRONIDAZOLE Inactive MACROBID 100 MG CAPS one tab PO BID MACROBID 100 MG CAPS 6287246 NITROFURANTOIN MONOHYD MACRO Inactive BACTRIM DS 800-160 MG TAB 1 tab by mouth twice daily BACTRIM DS 800-160 MG TAB 486083 TRIMETHOPRIM-SULFAMETHOXAZOLE Inactive Immunizations Vaccine Administration Date Value Standard Description Seasonal influenza vaccine, injectable, containing preservative, for > 3 years old (Afluria, FluLaval, Fluzone, Fluvirin, Fluarix, Agriflu(>=18 yo)) Fluzone (>3 yrs.) [JHV056] Influenza, seasonal, injectable hepatitis B vaccine series [...] Value Unit Range Description Lab Report: Chlamydia/GC APTIMA/41791 - Lab chlamydia DNA probe NOT DETECTED NOT DETECTED Lab Report: Chlamydia/GC APTIMA/87259 - Microbiology Neisseria gonorrhoeae DNA probe NOT [...] nitrite, urine, semiquantitative Negative Negative [place] [facility] [place] human chorionic gonadotropin, urine, qualitative (urine test) Negative Negative Office Procedure: Colposcopy - Chemistry human chorionic gonadotropin, urine, qualitative (urine test) neg Encounters Code Encounter Date Provider Facility CPT-64749 Level 3 Est. Patient 16:24:05 CDT Osmany [facility] CPT-53948 Level 3 Est. Patient 14:17:14 CDT Mirlande Amaro [facility] CPT-94377 Level 3 Est. Patient 12:23:10 BAKERY AND DELI SALES MANAGER Osmany [facility] Procedures Code Procedure Name Date Entry Date Standard Description CPT-J1050 Depo Provera 150 mg (Medroxyprogesterone) 11:43:58 CDT CPT-47341 Abx/Therapy Injection 11:43:58 CDT CPT-J1050 Depo Provera 150 mg (Medroxyprogesterone) 08:33:57 CDT CPT-11764 Hand, right, min 3V - XRAY USE ONLY 13:36:28 CDT 10/28 CPT-J1050 Depo Provera 150 mg (Medroxyprogesterone) 13:00:11 CDT CPT-76382 Abx/Therapy Injection 13:00:11 CDT CPT-J1050 Depo Provera 150 mg (Medroxyprogesterone) 09:36:26 CDT CPT-OV Office Visit 14:05:04 CDT CPT-12741 [place] of cervix w bx ECC 13:52:03 CDT CPT-OV Office Visit 13:52:02 CDT CPT-J1050 Depo Provera 150 mg (Medroxyprogesterone) 15:37:52 BAKERY AND DELI SALES MANAGER CPT-37383 Abx/Therapy Injection 15:37:52 BAKERY AND DELI SALES MANAGER CPT-PV Prev. Care Visit 11:12:44 BAKERY AND DELI SALES MANAGER CPT-46798 Spec Collection and Handling Fee 11:10:58 BAKERY AND DELI SALES MANAGER CPT-J1050 Depo Provera 150 mg (Medroxyprogesterone) 12:33:33 CDT CPT-78935 Abx/Therapy Injection 12:33:33 CDT CPT-J1050 Depo Provera 150 mg (Medroxyprogesterone) 11:47:45 BAKERY AND DELI SALES MANAGER CPT-96685 Abx/Therapy Injection 11:47:45 BAKERY AND DELI SALES MANAGER CPT-J1050 Depo Provera 150 mg (Medroxyprogesterone) 10:35:27 BAKERY AND DELI SALES MANAGER CPT-09196 Abx/Therapy Injection 10:35:27 BAKERY AND DELI SALES MANAGER CPT-J1050 Depo Provera 150 mg (Medroxyprogesterone) 13:36:14 CDT CPT-47635 Abx/Therapy Injection 13:36:14 CDT CPT-J1050 Depo Provera 150 mg (Medroxyprogesterone) 16:53:25 CDT CPT-77474 Abx/Therapy Injection 16:53:25 CDT CPT-05935 Visit 10:35:01 BAKERY AND DELI SALES MANAGER CPT-OV Office Visit 11:07:54 BAKERY AND DELI SALES MANAGER CPT-62836 Visit 11:03:41 BAKERY AND DELI SALES MANAGER CPT-68328 Visit 15:16:37 BAKERY AND DELI SALES MANAGER CPT-65679 Visit 17:02:15 BAKERY AND DELI SALES MANAGER CPT-85335 Visit 11:11:34 BAKERY AND DELI SALES MANAGER CPT-01410 [facility] transvag <14 weeks 16:17:14 CDT CPT-94379 Visit 11:24:40 CDT CPT-37017 Visit 18:13:37 CDT CPT-38075 Administration single or combination vaccine inc oral 12 :28:46 CDT CPT-95050 Influenza split virus > age 3 12:28:46 CDT CPT-44521 [facility] comp > 14 weeks 17:05:09 CDT
--- OUTSIDE RECORDS SUMMARY | 2017-01-23 14:33 | XMS REPORT | Clinical Summary ---
Author Author Admin, SABRA Organization [facility] Address Unknown Phone Unavailable Allergies, Adverse [...] Lower back pain 724.2 Active Mirlande Amaro DIGITAL HARDWARE DESIGN ENGINEER Lumbago DYSURIA 788.1 Active Mirlande Amaro APRN [...] 1 tab by mouth twice daily TRIMETHOPRIM-SULFAMETHOXAZOLE 89102911930 No Longer Active Cher Wright LPN Active DEPO-PROVERA 150 MG/ML SUPENSION 1 IM injection q 3 month MEDROXYPROGEST LYNDSEY (CONTRACEP) 01986396295 Active Cher Wright LPN Active FLAGYL 500 MG TAB 1 tablet by mouth three times daily METRONIDAZOLE 31390362553 No Longer Active Aditi Chino MD Active TYLENOL 325 MG TABS one to two tabs Q4 hours PRN pain ACETAMINOPHEN 98524669239 No Longer Active Kirstin Yokum DIGITAL HARDWARE DESIGN ENGINEER Active COMPLETE DHA 29-1-200 & 250 MG MISC 1 tab daily KRISSY- DAHSY-STSBI-JO-CA-OMEGA 49581105864 No Longer Active Kirstin Yokum DIGITAL HARDWARE DESIGN ENGINEER Active LORATADINE 10 MG TABS one tab PO daily LORATADINE 38359075238 No Longer Active Kirstin Yokum DIGITAL HARDWARE DESIGN ENGINEER Active GNP SINUS WASH NETI POT 2300-700 MG KIT rinse sinuses BID PRN SODIUM CHLORIDE-SODIUM BICARB 51850188827 No Longer Active Kirstin Yokum DIGITAL HARDWARE DESIGN ENGINEER Active SOMA 350 MG TAB 1 tablet every 6 hours as needed for muscle pain CARISOPRODOL 86736011740 No Longer Active Kirstin Yokum DIGITAL HARDWARE DESIGN ENGINEER Active MELOXICAM 15 MG TABS 1 tab by mount every day for pain with food MELOXICAM 28931739124 No Longer Active Kirsitn Yokum DIGITAL HARDWARE DESIGN ENGINEER Active MACROBID 100 MG CAPS one tab PO BID NITROFURANTOIN MONOHYD MACRO 27303407403 No Longer Active Aditi Chino MD Active BENADRYL 25 MG CAPS 1 to 2 caps every 6 hours PRN DIPHENHYDRAMINE HCL 99915051733 No Longer Active Aditi Chino MD Active MUCINEX 600 MG HF29Q-WYS 1 tab every 12 hours PRN GUAIFENESIN 26138410195 No Longer Active Aditi Chino MD Active MUCINEX 600 MG RA63J-NAE 1 tab every 12 hours PRN MUCINEX 600 MG HW54M-XZD GUAIFENESIN Inactive BENADRYL 25 MG CAPS 1 to 2 caps every 6 hours PRN BENADRYL 25 MG CAPS 6657569 DIPHENHYDRAMINE HCL Inactive MELOXICAM 15 MG TABS 1 tab by mount every day for pain with food MELOXICAM 15 MG TABS 067344 MELOXICAM Inactive SOMA 350 MG TAB 1 tablet every 6 hours as needed for muscle pain SOMA 350 MG TAB 537731 CARISOPRODOL Inactive GNP SINUS WASH NETI POT 2300-700 MG KIT rinse sinuses BID PRN GNP SINUS WASH NETI POT 2300-700 MG KIT SODIUM CHLORIDE-SODIUM BICARB Inactive LORATADINE 10 MG TABS one tab PO daily LORATADINE 10 MG TABS 139623 LORATADINE Inactive COMPLETE DHA 29-1-200 & 250 MG MISC 1 tab daily COMPLETE DHA 29-1-200 & 250 MG MISC SPSCGV-ZMFZL-LFKDV-FA-CA-OMEGA Inactive TYLENOL 325 MG TABS one to two tabs Q4 hours PRN pain TYLENOL 325 MG TABS 365201 ACETAMINOPHEN Inactive FLAGYL 500 MG TAB 1 tablet by mouth three times daily FLAGYL 500 MG TAB 199980 METRONIDAZOLE Inactive MACROBID 100 MG CAPS one tab PO BID MACROBID 100 MG CAPS 0814389 NITROFURANTOIN MONOHYD MACRO Inactive BACTRIM DS 800-160 MG TAB 1 tab by mouth twice daily BACTRIM DS 800-160 MG TAB 825371 TRIMETHOPRIM-SULFAMETHOXAZOLE Inactive Immunizations Vaccine Administration Date Value Standard Description Seasonal influenza vaccine, injectable, containing preservative, for > 3 years old (Afluria, FluLaval, Fluzone, Fluvirin, Fluarix, Agriflu(>=18 yo)) Fluzone (>3 yrs.) [[id number]] Influenza, seasonal, injectable hepatitis B vaccine series [...] Value Unit Range Description Lab Report: Chlamydia/GC APTIMA/94717 - Lab chlamydia DNA probe NOT DETECTED NOT DETECTED chlamydia DNA probe NOT DETECTED NOT DETECTED Lab Report: Chlamydia/GC APTIMA/39480 - Microbiology Neisseria gonorrhoeae DNA probe NOT [...] nitrite, urine, semiquantitative Negative Negative Lab Report: [facility] [place] - Chemistry human chorionic gonadotropin, urine, qualitative (urine test) Negative Negative Office Procedure: Colposcopy - Chemistry human chorionic gonadotropin, urine, qualitative (urine test) neg Encounters Code Encounter Date Provider Facility CPT-24046 Level 3 Est. Patient 14:17:14 CDT Mirlande Amaro APRN [facility] CPT-44848 Level 3 Est. Patient 12:23:10 CASTING CLEANER Osmany Corea DO [facility] -[facility] Procedures Code Procedure Name Date Entry Date Standard Description CPT-J1050 Depo Provera 150 mg (Medroxyprogesterone) 13:00:11 CDT CPT-31715 Abx/Therapy Injection 13:00:11 CDT CPT-J1050 Depo Provera 150 mg (Medroxyprogesterone) 09:36:26 CDT CPT-OV Office Visit 14:05:04 CDT CPT-26406 [place] of cervix w bx ECC 13:52:03 CDT CPT-OV Office Visit 13:52:02 CDT CPT-J1050 Depo Provera 150 mg (Medroxyprogesterone) 15:37:52 CASTING CLEANER CPT-08607 Abx/Therapy Injection 15:37:52 CASTING CLEANER CPT-PV Prev. Care Visit 11:12:44 CASTING CLEANER CPT-86553 Spec Collection and Handling Fee 11:10:58 CASTING CLEANER CPT-J1050 Depo Provera 150 mg (Medroxyprogesterone) 12:33:33 CDT CPT-81962 Abx/Therapy Injection 12:33:33 CDT CPT-J1050 Depo Provera 150 mg (Medroxyprogesterone) 11:47:45 CASTING CLEANER CPT-52000 Abx/Therapy Injection 11:47:45 CASTING CLEANER CPT-J1050 Depo Provera 150 mg (Medroxyprogesterone) 10:35:27 CASTING CLEANER CPT-08708 Abx/Therapy Injection 10:35:27 CASTING CLEANER CPT-J1050 Depo Provera 150 mg (Medroxyprogesterone) 13:36:14 CDT CPT-34250 Abx/Therapy Injection 13:36:14 CDT CPT-J1050 Depo Provera 150 mg (Medroxyprogesterone) 16:53:25 CDT CPT-82404 Abx/Therapy Injection 16:53:25 CDT CPT-43686 Visit 10:35:01 [employer] CPT-OV Office Visit 11:07:54 [employer]ING [employer] CPT-06049 Visit 11:03:41 [employer]ING [employer] CPT-58421 Visit 15:16:37 [employer]ING [employer] CPT-43368 Visit 17:02:15 [employer]ING CLE[employer] CPT-58220 Visit 11:11:34 [employer]ING CLE[employer] CPT-09971 Sono OB transvag <14 weeks 16:17:14 CDT CPT-94572 Visit 11:24:40 CDT CPT-15182 Visit 18:13:37 CDT CPT-05042 Administration single or combination vaccine inc oral 12 :28:46 CDT CPT-11766 Influenza split virus > age 3 12:28:46 CDT CPT-66600 Sono OB comp > 14 weeks 17:05:09 CDT
--- OUTSIDE RECORDS SUMMARY | 2017-01-23 14:34 | XMS REPORT | Clinical Summary ---
Author Author Admin, SABRA Organization [facility] Address Unknown Phone Unavailable Allergies, Adverse Reactions, Alerts Allergy Name Reaction Description Start Date Severity Status Provider No Known Allergies Cehr Wright LPN Conditions or Problems Problem Name [...] Aditi Chino MD UTI ICD-599.0 Inactive Aditi hCino MD VAGINAL DISCHARGE ICD-623.5 Inactive Aditi Chino MD OTHER DISEASES OF NASAL CAVITY AND SINUSES ICD-478.19 Inactive Osmany Corea DO Gynecological examination, routine ICD-V72.3 Inactive Aditi Chino MD Medication List Medication Instructions Start Date Stop Date Generic Name NDC Status Provider Patient Instruction DEPO-PROVERA 150 MG/ML SUPENSION 1 IM injection q 3 month MEDROXYPROGEST LYNDSEY (CONTRACEP) 42572087281 Active Cher Wright KILN LABOURER Active FLAGYL 500 MG TAB 1 tablet by mouth three times daily METRONIDAZOLE 64938307122 No Longer Active Aditi Chino MD Active TYLENOL 325 MG TABS one to two tabs Q4 hours PRN pain ACETAMINOPHEN 04347055829 No Longer Active Kirstin Yokum VEGETABLE PACKER Active COMPLETE DHA 29-1-200 & 250 MG MISC 1 tab daily PRENAT- AWTWE-PMFJS-OL-CA-OMEGA 60568986436 No Longer Active Kirstin Yokum VEGETABLE PACKER Active LORATADINE 10 MG TABS one tab PO daily LORATADINE 54711673432 No Longer Active Kirstin Yokum VEGETABLE PACKER Active GNP SINUS WASH NETI POT 2300-700 MG KIT rinse sinuses BID PRN SODIUM CHLORIDE-SODIUM BICARB 45438816004 No Longer Active Kirstin Yokum VEGETABLE PACKER Active SOMA 350 MG TAB 1 tablet every 6 hours as needed for muscle pain CARISOPRODOL 27682919966 No Longer Active Kirstin Yokum VEGETABLE PACKER Active MELOXICAM 15 MG TABS 1 tab by mount every day for pain with food MELOXICAM 95091196937 No Longer Active Kirstin Yokum VEGETABLE PACKER Active MACROBID 100 MG CAPS one tab PO BID NITROFURANTOIN MONOHYD MACRO 56656062365 No Longer Active Aditi Chino MD Active BENADRYL 25 MG CAPS 1 to 2 caps every 6 hours PRN DIPHENHYDRAMINE HCL 38328427082 No Longer Active Aditi Chino MD Active MUCINEX 600 MG AH39G-PKY 1 tab every 12 hours PRN GUAIFENESIN 43414567729 No Longer Active Aditi Chino MD Active MUCINEX 600 MG QG47N-XRR 1 tab every 12 hours PRN MUCINEX 600 MG IJ09K-YDC GUAIFENESIN Inactive BENADRYL 25 MG CAPS 1 to 2 caps every 6 hours PRN BENADRYL 25 MG CAPS 3926325 DIPHENHYDRAMINE HCL Inactive MELOXICAM 15 MG TABS 1 tab by mount every day for pain with food MELOXICAM 15 MG TABS 035760 MELOXICAM Inactive SOMA 350 MG TAB 1 tablet every 6 hours as needed for muscle pain SOMA 350 MG TAB 986409 CARISOPRODOL Inactive GNP SINUS WASH NETI POT 2300-700 MG KIT rinse sinuses BID PRN GNP SINUS WASH NETI POT 2300-700 MG KIT SODIUM CHLORIDE-SODIUM BICARB Inactive LORATADINE 10 MG TABS one tab PO daily LORATADINE 10 MG TABS 904584 LORATADINE Inactive COMPLETE DHA 29-1-200 & 250 MG MISC 1 tab daily COMPLETE DHA 29-1-200 & 250 MG MISC [id number]-FA-CA-OMEGA Inactive TYLENOL 325 MG TABS one to two tabs Q4 hours PRN pain TYLENOL 325 MG TABS 834974 ACETAMINOPHEN Inactive FLAGYL 500 MG TAB 1 tablet by mouth three times daily FLAGYL 500 MG TAB 592968 METRONIDAZOLE Inactive MACROBID 100 MG CAPS one tab PO BID MACROBID 100 MG CAPS 2337389 NITROFURANTOIN MONOHYD MACRO Inactive Immunizations Vaccine Administration Date Value Standard Description Seasonal influenza vaccine, injectable, containing preservative, for > 3 years old (Afluria, FluLaval, Fluzone, Fluvirin, Fluarix, Agriflu(>=18 yo)) Fluzone (>3 yrs.) [[id number]] Influenza, seasonal, injectable hepatitis B vaccine series [...] Value Unit Range Description Lab Report: Chlamydia/GC APTIMA/01489 - Lab chlamydia DNA probe NOT DETECTED NOT DETECTED Lab Report: Chlamydia/GC APTIMA/15090 - Microbiology Neisseria gonorrhoeae DNA probe NOT DETECTED NOT DETECTED Lab Report: CG - Chemistry human chorionic gonadotropin, urine, qualitative (urine test) Negative Negative Office Procedure: Colposcopy - Chemistry human chorionic gonadotropin, urine, qualitative (urine test) neg Encounters Code Encounter Date Provider Facility CPT-52800 Level 3 Est. Patient 12:23:10 BUSINESS LAW PROFESSOR Osmany Corea DO [facility] Procedures Code Procedure Name Date Entry Date Standard Description CPT-J1050 Depo Provera 150 mg (Medroxyprogesterone) 13:00:11 CDT CPT-04229 Abx/Therapy Injection 13:00:11 CDT CPT-J1050 Depo Provera 150 mg (Medroxyprogesterone) 09:36:26 CDT CPT-OV Office Visit 14:05:04 CDT CPT-36502 [place] of cervix w bx ECC 13:52:03 CDT CPT-OV Office Visit 13:52:02 CDT CPT-J1050 Depo Provera 150 mg (Medroxyprogesterone) 15:37:52 BUSINESS LAW PROFESSOR CPT-81092 Abx/Therapy Injection 15:37:52 BUSINESS LAW PROFESSOR CPT-PV Prev. Care Visit 11:12:44 BUSINESS LAW PROFESSOR CPT-88232 Spec Collection and Handling Fee 11:10:58 BUSINESS LAW PROFESSOR CPT-J1050 Depo Provera 150 mg (Medroxyprogesterone) 12:33:33 CDT CPT-11003 Abx/Therapy Injection 12:33:33 CDT CPT-J1050 Depo Provera 150 mg (Medroxyprogesterone) 11:47:45 BUSINESS LAW PROFESSOR CPT-47241 Abx/Therapy Injection 11:47:45 BUSINESS LAW PROFESSOR CPT-J1050 Depo Provera 150 mg (Medroxyprogesterone) 10:35:27 BUSINESS LAW PROFESSOR CPT-50261 Abx/Therapy Injection 10:35:27 BUSINESS LAW PROFESSOR CPT-J1050 Depo Provera 150 mg (Medroxyprogesterone) 13:36:14 CDT CPT-79391 Abx/Therapy Injection 13:36:14 CDT CPT-J1050 Depo Provera 150 mg (Medroxyprogesterone) 16:53:25 CDT CPT-17185 Abx/Therapy Injection 16:53:25 CDT CPT-25896 Visit 10:35:01 BUSINESS LAW PROFESSOR CPT-OV Office Visit 11:07:54 BUSINESS LAW PROFESSOR CPT-74931 Visit 11:03:41 BUSINESS LAW PROFESSOR CPT-88701 Visit 15:16:37 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
--- OUTSIDE RECORDS SUMMARY | 2017-01-23 14:34 | XMS REPORT ---
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 Name Role Phone JASON SANCHEZ Unavailable PROBLEMS Type Condition ICD9-CM Code [id number] Code Onset Dates Condition Status SNOMED Code Problem Seasonal allergic rhinitis, unspecified allergic rhinitis trigger J30.2 Active 079225946 Problem Menorrhagia with irregular cycle N92.1 Active 72114093 ALLERGIES No Known Allergies SOCIAL HISTORY Never Assessed PLAN OF CARE Activity Details Follow Up 1 Year for pap after seen by Dr Simons Reason: VITAL SIGNS Height 61.25 in 2016-06-19 Weight 120.0 lbs 2016-06-19 Temperature 98.7 degrees Fahrenheit 2016-06-19 Heart Rate 64 bpm 2016-06-19 Respiratory Rate 16 2016-06-19 BMI 22.49 kg/m2 2016-06-19 Blood pressure systolic 108 mmHg 2016-06-19 Blood pressure diastolic 62 mmHg 2016-06-19 MEDICATIONS Medication Instructions Dosage Frequency Start Date End Date Duration Status Depo-Provera 150 MG/ML 1 ml Jun, Jul, 30 day(s) Active RESULTS Name Result Date Reference Range TEST, URINE (IN HOUSE) 2016-06-19 RESULTS negative Lot # [id number] Control + Exp date 07/2017 PROCEDURES Procedure Date Ordered Result Body Site URINE TEST June 19, 2016 DEPO PROVERA (150 MG/ML) June 19, 2016 THER/PROPH/DIAG INJ, SC/IM June 19, 2016 IMMUNIZATIONS Vaccine Route Administration Date Status DEPO PROVERA (150 MG/ML) IM Intramuscular June 19, 2016 Administered MEDICAL (GENERAL) HISTORY Type Description Date Medical History Cervical Ca diag 2015, no treatment as of 05/2016 Medical History tumer was in right lower leg: removed as a child Medical History Asthma Surgical History Tunsils/ adnoids removed Surgical History tubes in ears Surgical History spider bite in left arm Surgical History cervical biopsy Hospitalization History surgery
--- OUTSIDE RECORDS SUMMARY | 2017-01-23 14:34 | XMS REPORT | Clinical Summary ---
Author Author Admin, SABRA Organization [facility] Address Unknown Phone Unavailable Allergies, [...] Special investigations and examinations - Gynecological examination 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 Aditi Chino MD OTH PLACENTAL CONDS AFFECT 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 Inactive Aditi Chino MD OTHER NONSPECIFIC FINDINGS EXAMINATION OF BLOOD ICD-790.99 05/06 Inactive Aditi Chino MD UTI ICD-599.0 Inactive Aditi Chino MD OTHER DISEASES OF NASAL CAVITY AND SINUSES ICD-478.19 Inactive Osmany Corea DO THROMBOCYTOPENIA ICD-287.5 Inactive Aditi Chino MD 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 Aditi Chino MD Medication List Medication Instructions Start Date Stop Date Generic Name NDC Status Provider Patient Instruction FLAGYL 500 MG TAB 1 tablet by mouth three times daily METRONIDAZOLE 14286244792 Active Kirstin Yokum GEOTECHNICAL ENGINEER Active TYLENOL 325 MG TABS one to two tabs Q4 hours PRN pain ACETAMINOPHEN 93019887889 No Longer Active Kirstin Yokum GEOTECHNICAL ENGINEER Active COMPLETE DHA 29-1-200 & 250 MG MISC 1 tab daily KRISSY- KLOML-REWOX-LK-CA-OMEGA 62849407601 No Longer Active Kirstin Yokum GEOTECHNICAL ENGINEER Active LORATADINE 10 MG TABS one tab PO daily LORATADINE 30580718312 No Longer Active Kirstin Yokum GEOTECHNICAL ENGINEER Active GNP SINUS WASH NETI POT 2300-700 MG KIT rinse sinuses BID PRN SODIUM CHLORIDE-SODIUM BICARB 07655907348 No Longer Active Kirstin Yokum GEOTECHNICAL ENGINEER Active SOMA 350 MG TAB 1 tablet every 6 hours as needed for muscle pain CARISOPRODOL 23739922149 No Longer Active Kirstin Yokum GEOTECHNICAL ENGINEER Active MELOXICAM 15 MG TABS 1 tab by mount every day for pain with food MELOXICAM 93875684666 No Longer Active Kirstin Yokum GEOTECHNICAL ENGINEER Active MACROBID 100 MG CAPS one tab PO BID NITROFURANTOIN MONOHYD MACRO 42372311482 No Longer Active Aditi Chino MD Active BENADRYL 25 MG CAPS 1 to 2 caps every 6 hours PRN DIPHENHYDRAMINE HCL 99063825391 No Longer Active Aditi Chino MD Active MUCINEX 600 MG BR61I-EXI 1 tab every 12 hours PRN GUAIFENESIN 59083517661 No Longer Active Aditikyleigh Chino MD Active MUCINEX 600 MG [id number]-WSW 1 tab every 12 hours PRN MUCINEX 600 MG TM36F-WWJ GUAIFENESIN Inactive BENADRYL 25 MG CAPS 1 to 2 caps every 6 hours PRN BENADRYL 25 MG CAPS 2334538 DIPHENHYDRAMINE HCL Inactive MELOXICAM 15 MG TABS 1 tab by mount every day for pain with food MELOXICAM 15 MG TABS 045756 MELOXICAM Inactive SOMA 350 MG TAB 1 tablet every 6 hours as needed for muscle pain SOMA 350 MG TAB 448896 CARISOPRODOL Inactive GNP SINUS WASH NETI POT 2300-700 MG KIT rinse sinuses BID PRN GNP SINUS WASH NETI POT 2300-700 MG KIT SODIUM CHLORIDE-SODIUM BICARB Inactive LORATADINE 10 MG TABS one tab PO daily LORATADINE 10 MG TABS 519286 LORATADINE Inactive COMPLETE DHA 29-1-200 & 250 MG MISC 1 tab daily COMPLETE DHA 29-1-200 & 250 MG MISC [id number]-FA-CA-OMEGA Inactive TYLENOL 325 MG TABS one to two tabs Q4 hours PRN pain TYLENOL 325 MG TABS 288570 ACETAMINOPHEN Inactive MACROBID 100 MG CAPS one tab PO BID MACROBID 100 MG CAPS 8245582 NITROFURANTOIN MONOHYD MACRO Inactive Immunizations Vaccine Administration Date Value Standard Description Seasonal influenza vaccine, injectable, containing preservative, for > 3 years old (Afluria, FluLaval, Fluzone, Fluvirin, Fluarix, Agriflu(>=18 yo)) Fluzone (>3 yrs.) [[id number]] Influenza, seasonal, injectable hepatitis B vaccine series [...] Value Unit Range Description Lab Report: Chlamydia/GC APTIMA/87170 - Lab chlamydia DNA probe NOT DETECTED NOT DETECTED Lab Report: Chlamydia/GC APTIMA/27491 - Microbiology Neisseria gonorrhoeae DNA probe NOT DETECTED NOT DETECTED Encounters Code Encounter Date Provider Facility CPT-75166 Level 3 Est. Patient 12:23:10 NUCLEAR ENGINEER Osmany Corea DO [facility] Procedures Code Procedure Name Date Entry Date Standard Description CPT-J1050 Depo Provera 150 mg (Medroxyprogesterone) 15:37:52 NUCLEAR ENGINEER CPT-57255 Abx/Therapy Injection 15:37:52 NUCLEAR ENGINEER CPT-PV Prev. Care Visit 11:12:44 NUCLEAR ENGINEER CPT-93465 Spec Collection and Handling Fee 11:10:58 NUCLEAR ENGINEER CPT-J1050 Depo Provera 150 mg (Medroxyprogesterone) 12:33:33 CDT CPT-55215 Abx/Therapy Injection 12:33:33 CDT CPT-J1050 Depo Provera 150 mg (Medroxyprogesterone) 11:47:45 NUCLEAR ENGINEER CPT-16532 Abx/Therapy Injection 11:47:45 NUCLEAR ENGINEER CPT-J1050 Depo Provera 150 mg (Medroxyprogesterone) 10:35:27 NUCLEAR ENGINEER CPT-59367 Abx/Therapy Injection 10:35:27 NUCLEAR ENGINEER CPT-J1050 Depo Provera 150 mg (Medroxyprogesterone) 13:36:14 CDT CPT-88636 Abx/Therapy Injection 13:36:14 CDT CPT-J1050 Depo Provera 150 mg (Medroxyprogesterone) 16:53:25 CDT CPT-80755 Abx/Therapy Injection 16:53:25 CDT CPT-46965 Visit 10:35:01 NUCLEAR ENGINEER CPT-OV Office Visit 11:07:54 NUCLEAR ENGINEER CPT-48567 Visit 11:03:41 NUCLEAR ENGINEER CPT-83156 Visit 15:16:37 NUCLEAR ENGINEER CPT-33646 Visit 17:02:15 NUCLEAR ENGINEER CPT-99802 Visit 11:11:34 NUCLEAR ENGINEER CPT-45840 [facility] transvag <14 weeks 16:17:14 CDT CPT-58551 Visit 11:24:40 CDT CPT-00141 Visit 18:13:37 CDT CPT-62737 Administration single or combination vaccine inc oral 12 :28:46 CDT CPT-02799 Influenza split virus > age 3 12:28:46 CDT CPT-51873 [facility] comp > 14 weeks 17:05:09 CDT
--- OUTSIDE RECORDS SUMMARY | 2017-01-23 14:34 | XMS REPORT | Clinical Summary ---
Author Author Admin, SABRA Organization [facility] Address Unknown Phone Unavailable Allergies, Adverse Reactions, [...] Lower back pain 724.2 Active Mirlande Amaro ROVING CAN TENDER Lumbago DYSURIA 788.1 Active Mirlande Amaro APRN [...] 1 tab by mouth twice daily TRIMETHOPRIM-SULFAMETHOXAZOLE 07409752578 No Longer Active Cher Wright LPN Active DEPO-PROVERA 150 MG/ML SUPENSION 1 IM injection q 3 month MEDROXYPROGEST LYNDSEY (CONTRACEP) 38978114490 Active Cher Wright LPN Active FLAGYL 500 MG TAB 1 tablet by mouth three times daily METRONIDAZOLE 11621838614 No Longer Active Aditi Chino MD Active TYLENOL 325 MG TABS one to two tabs Q4 hours PRN pain ACETAMINOPHEN 61087827505 No Longer Active Kirstin Yokum ROVING CAN TENDER Active COMPLETE DHA 29-1-200 & 250 MG MISC 1 tab daily KRISSY- LQPDL-CUPCL-RN-CA-OMEGA 85952657693 No Longer Active Kirstin Yokum ROVING CAN TENDER Active LORATADINE 10 MG TABS one tab PO daily LORATADINE 08985297350 No Longer Active Kirstin Yokum ROVING CAN TENDER Active GNP SINUS WASH NETI POT 2300-700 MG KIT rinse sinuses BID PRN SODIUM CHLORIDE-SODIUM BICARB 27251334647 No Longer Active Kirstin Yokum ROVING CAN TENDER Active SOMA 350 MG TAB 1 tablet every 6 hours as needed for muscle pain CARISOPRODOL 08072935581 No Longer Active Kirstin Yokum ROVING CAN TENDER Active MELOXICAM 15 MG TABS 1 tab by mount every day for pain with food MELOXICAM 83936968300 No Longer Active Kirstin Yokum ROVING CAN TENDER Active MACROBID 100 MG CAPS one tab PO BID NITROFURANTOIN MONOHYD MACRO 83867834257 No Longer Active Aditi Chino MD Active BENADRYL 25 MG CAPS 1 to 2 caps every 6 hours PRN DIPHENHYDRAMINE HCL 60253923238 No Longer Active Aditi Chino MD Active MUCINEX 600 MG HE12H-GYN 1 tab every 12 hours PRN GUAIFENESIN 25353803149 No Longer Active Aditi Chino MD Active MUCINEX 600 MG QH94P-QLA 1 tab every 12 hours PRN MUCINEX 600 MG NF82X-JWQ GUAIFENESIN Inactive BENADRYL 25 MG CAPS 1 to 2 caps every 6 hours PRN BENADRYL 25 MG CAPS 1599817 DIPHENHYDRAMINE HCL Inactive MELOXICAM 15 MG TABS 1 tab by mount every day for pain with food MELOXICAM 15 MG TABS 341984 MELOXICAM Inactive SOMA 350 MG TAB 1 tablet every 6 hours as needed for muscle pain SOMA 350 MG TAB 989774 CARISOPRODOL Inactive GNP SINUS WASH NETI POT 2300-700 MG KIT rinse sinuses BID PRN GNP SINUS WASH NETI POT 2300-700 MG KIT SODIUM CHLORIDE-SODIUM BICARB Inactive LORATADINE 10 MG TABS one tab PO daily LORATADINE 10 MG TABS 139417 LORATADINE Inactive COMPLETE DHA 29-1-200 & 250 MG MISC 1 tab daily COMPLETE DHA 29-1-200 & 250 MG MISC [id number]-RQWGS-VHJDN-FA-CA-OMEGA Inactive TYLENOL 325 MG TABS one to two tabs Q4 hours PRN pain TYLENOL 325 MG TABS 391781 ACETAMINOPHEN Inactive FLAGYL 500 MG TAB 1 tablet by mouth three times daily FLAGYL 500 MG TAB 744959 METRONIDAZOLE Inactive MACROBID 100 MG CAPS one tab PO BID MACROBID 100 MG CAPS 7425157 NITROFURANTOIN MONOHYD MACRO Inactive BACTRIM DS 800-160 MG TAB 1 tab by mouth twice daily BACTRIM DS 800-160 MG TAB 656444 TRIMETHOPRIM-SULFAMETHOXAZOLE Inactive Immunizations Vaccine Administration Date Value Standard Description Seasonal influenza vaccine, injectable, containing preservative, for > 3 years old (Afluria, FluLaval, Fluzone, Fluvirin, Fluarix, Agriflu(>=18 yo)) Fluzone (>3 yrs.) [[id number]] Influenza, seasonal, injectable hepatitis B vaccine series [...] Value Unit Range Description Lab Report: Chlamydia/GC APTIMA/05123 - Lab chlamydia DNA probe NOT DETECTED NOT DETECTED chlamydia DNA probe NOT DETECTED NOT DETECTED Lab Report: Chlamydia/GC APTIMA/41880 - Microbiology Neisseria gonorrhoeae DNA probe NOT [...] nitrite, urine, semiquantitative Negative Negative Lab Report: [facility] [place] Chemistry human chorionic gonadotropin, urine, qualitative (urine test) Negative Negative Office Procedure: Colposcopy - Chemistry human chorionic gonadotropin, urine, qualitative (urine test) neg Encounters Code Encounter Date Provider Facility CPT-20549 Level 3 Est. Patient 14:17:14 CDT Mirlande Amaro APRN [facility] CPT-08541 Level 3 Est. Patient 12:23:10 BOBJ DEVELOPER Osmany Corea DO [facility] -[facility] Procedures Code Procedure Name Date Entry Date Standard Description CPT-J1050 Depo Provera 150 mg (Medroxyprogesterone) 13:00:11 CDT CPT-32112 Abx/Therapy Injection 13:00:11 CDT CPT-J1050 Depo Provera 150 mg (Medroxyprogesterone) 09:36:26 CDT CPT-OV Office Visit 14:05:04 CDT CPT-82006 [employer] of cervix w bx ECC 13:52:03 CDT CPT-OV Office Visit 13:52:02 CDT CPT-J1050 Depo Provera 150 mg (Medroxyprogesterone) 15:37:52 BOBJ DEVELOPER CPT-02803 Abx/Therapy Injection 15:37:52 BOBJ DEVELOPER CPT-PV Prev. Care Visit 11:12:44 BOBJ DEVELOPER CPT-56904 Spec Collection and Handling Fee 11:10:58 BOBJ DEVELOPER CPT-J1050 Depo Provera 150 mg (Medroxyprogesterone) 12:33:33 CDT CPT-59590 Abx/Therapy Injection 12:33:33 CDT CPT-J1050 Depo Provera 150 mg (Medroxyprogesterone) 11:47:45 BOBJ DEVELOPER CPT-03939 Abx/Therapy Injection 11:47:45 BOBJ DEVELOPER CPT-J1050 Depo Provera 150 mg (Medroxyprogesterone) 10:35:27 BOBJ DEVELOPER CPT-41754 Abx/Therapy Injection 10:35:27 BOBJ DEVELOPER CPT-J1050 Depo Provera 150 mg (Medroxyprogesterone) 13:36:14 CDT CPT-25093 Abx/Therapy Injection 13:36:14 CDT CPT-J1050 Depo Provera 150 mg (Medroxyprogesterone) 16:53:25 CDT CPT-12090 Abx/Therapy Injection 16:53:25 CDT CPT-74409 Visit 10:35:01 BOBJ DEVELOPER CPT-OV Office Visit 11:07:54 BOBJ DEVELOPER CPT-72869 Visit 11:03:41 BOBJ DEVELOPER CPT-51277 Visit 15:16:37 BOBJ DEVELOPER CPT-78509 Visit 17:02:15 BOBJ DEVELOPER CPT-53624 Visit 11:11:34 BOBJ DEVELOPER CPT-15015 [facility] transvag <14 weeks 16:17:14 CDT CPT-15938 Visit 11:24:40 CDT CPT-24967 Visit 18:13:37 CDT CPT-04920 Administration single or combination vaccine inc oral 12 :28:46 CDT CPT-72245 Influenza split virus > age 3 12:28:46 CDT CPT-77779 Son[facility] comp > 14 weeks 17:05:09 CDT
--- OUTSIDE RECORDS SUMMARY | 2017-01-23 14:35 | XMS REPORT | Clinical Summary ---
Author Author Admin, SABRA Organization [facility] Address Unknown Phone Unavailable Allergies, Adverse [...] Lower back pain 724.2 Active Mirlande Amaro ASSOCIATE FIELD SERVICE ENGINEER Lumbago DYSURIA 788.1 Active Mirlande Amaro ASSOCIATE FIELD SERVICE ENGINEER Dysuria , NORMAL, MULTIGRAVIDA ICD-V22.1 Inactive Adtii Chino MD TOB USE D/O COMP PG [...] 1 tab by mouth twice daily TRIMETHOPRIM-SULFAMETHOXAZOLE 81890134435 No Longer Active Cher Wright LPN Active DEPO-PROVERA 150 MG/ML SUPENSION 1 IM injection q 3 month MEDROXYPROGEST LYNDSEY (CONTRACEP) 53974766902 Active Cher Wright LPN Active FLAGYL 500 MG TAB 1 tablet by mouth three times daily METRONIDAZOLE 73936247344 No Longer Active Aditi Chino MD Active TYLENOL 325 MG TABS one to two tabs Q4 hours PRN pain ACETAMINOPHEN 97303526792 No Longer Active Kirstin Yokum ASSOCIATE FIELD SERVICE ENGINEER Active COMPLETE BELA DHA 29-1-200 & 250 MG MISC 1 tab daily KRISSY- ZHUSG-TKXHU-HE-CA-OMEGA 58147216915 No Longer Active Kirstin Yokum ASSOCIATE FIELD SERVICE ENGINEER Active LORATADINE 10 MG TABS one tab PO daily LORATADINE 25959370562 No Longer Active Kirstin Yokum ASSOCIATE FIELD SERVICE ENGINEER Active GNP SINUS WASH NETI POT 2300-700 MG KIT rinse sinuses BID PRN SODIUM CHLORIDE-SODIUM BICARB 16433889100 No Longer Active Kirstin Yokum ASSOCIATE FIELD SERVICE ENGINEER Active SOMA 350 MG TAB 1 tablet every 6 hours as needed for muscle pain CARISOPRODOL 57634449156 No Longer Active Kirstin Yokum ASSOCIATE FIELD SERVICE ENGINEER Active MELOXICAM 15 MG TABS 1 tab by mount every day for pain with food MELOXICAM 06740256460 No Longer Active Kirstin Yokum ASSOCIATE FIELD SERVICE ENGINEER Active MACROBID 100 MG CAPS one tab PO BID NITROFURANTOIN MONOHYD MACRO 71870270007 No Longer Active Aditi Chino MD Active BENADRYL 25 MG CAPS 1 to 2 caps every 6 hours PRN DIPHENHYDRAMINE HCL 29988831818 No Longer Active Aditi Chino MD Active MUCINEX 600 MG [id number]-EXC 1 tab every 12 hours PRN GUAIFENESIN 46134610593 No Longer Active Aditi Chino MD Active MUCINEX 600 MG PF99R-BNB 1 tab every 12 hours PRN MUCINEX 600 MG MX17L-KEL GUAIFENESIN Inactive BENADRYL 25 MG CAPS 1 to 2 caps every 6 hours PRN BENADRYL 25 MG CAPS 5239200 DIPHENHYDRAMINE HCL Inactive MELOXICAM 15 MG TABS 1 tab by mount every day for pain with food MELOXICAM 15 MG TABS 244831 MELOXICAM Inactive SOMA 350 MG TAB 1 tablet every 6 hours as needed for muscle pain SOMA 350 MG TAB 004920 CARISOPRODOL Inactive GNP SINUS WASH NETI POT 2300-700 MG KIT rinse sinuses BID PRN GNP SINUS WASH NETI POT 2300-700 MG KIT SODIUM CHLORIDE-SODIUM BICARB Inactive LORATADINE 10 MG TABS one tab PO daily LORATADINE 10 MG TABS 429368 LORATADINE Inactive COMPLETE BELA DHA 29-1-200 & 250 MG MISC 1 tab daily COMPLETE BELA DHA 29-1-200 & 250 MG MISC [id number]-WYOBC-FA-CA-OMEGA Inactive TYLENOL 325 MG TABS one to two tabs Q4 hours PRN pain TYLENOL 325 MG TABS 287242 ACETAMINOPHEN Inactive FLAGYL 500 MG TAB 1 tablet by mouth three times daily FLAGYL 500 MG TAB 257413 METRONIDAZOLE Inactive MACROBID 100 MG CAPS one tab PO BID MACROBID 100 MG CAPS 4314849 NITROFURANTOIN MONOHYD MACRO Inactive BACTRIM DS 800-160 MG TAB 1 tab by mouth twice daily BACTRIM DS 800-160 MG TAB 460345 TRIMETHOPRIM-SULFAMETHOXAZOLE Inactive Immunizations Vaccine Administration Date Value Standard Description Seasonal influenza vaccine, injectable, containing preservative, for > 3 years old (Afluria, FluLaval, Fluzone, Fluvirin, Fluarix, Agriflu(>=18 yo)) Fluzone (>3 yrs.) [[id number]] Influenza, seasonal, injectable hepatitis B vaccine series [...] Value Unit Range Description Lab Report: Chlamydia/GC APTIMA/68929 - Lab chlamydia DNA probe NOT DETECTED NOT DETECTED chlamydia DNA probe NOT DETECTED NOT DETECTED Lab Report: Chlamydia/GC APTIMA/18417 - Microbiology Neisseria gonorrhoeae DNA probe NOT [...] nitrite, urine, semiquantitative Negative Negative Lab Report: [facility] - Chemistry human chorionic gonadotropin, urine, qualitative (urine test) Negative Negative Office Procedure: Colposcopy - Chemistry human chorionic gonadotropin, urine, qualitative (urine test) neg Encounters Code Encounter Date Provider Facility CPT-45507 Level 3 Est. Patient 14:17:14 [facility] Level 3 Est. Patient 12:23:10 RACK WORKER Osmany Corea DO [facility] Procedures Code Procedure Name Date Entry Date Standard Description CPT-J1050 Depo Provera 150 mg (Medroxyprogesterone) 13:00:11 CDT CPT-82514 Abx/Therapy Injection 13:00:11 CDT CPT-J1050 Depo Provera 150 mg (Medroxyprogesterone) 09:36:26 CDT CPT-OV Office Visit 14:05:04 CDT CPT-61322 [place] of cervix w bx ECC 13:52:03 CDT CPT-OV Office Visit 13:52:02 CDT CPT-J1050 Depo Provera 150 mg (Medroxyprogesterone) 15:37:52 RACK WORKER CPT-63512 Abx/Therapy Injection 15:37:52 RACK WORKER CPT-PV Prev. Care Visit 11:12:44 RACK WORKER CPT-39851 Spec Collection and Handling Fee 11:10:58 RACK WORKER CPT-J1050 Depo Provera 150 mg (Medroxyprogesterone) 12:33:33 CDT CPT-51243 Abx/Therapy Injection 12:33:33 CDT CPT-J1050 Depo Provera 150 mg (Medroxyprogesterone) 11:47:45 RACK WORKER CPT-35226 Abx/Therapy Injection 11:47:45 RACK WORKER CPT-J1050 Depo Provera 150 mg (Medroxyprogesterone) 10:35:27 RACK WORKER CPT-80011 Abx/Therapy Injection 10:35:27 RACK WORKER CPT-J1050 Depo Provera 150 mg (Medroxyprogesterone) 13:36:14 CDT CPT-42195 Abx/Therapy Injection 13:36:14 CDT CPT-J1050 Depo Provera 150 mg (Medroxyprogesterone) 16:53:25 CDT CPT-24139 Abx/Therapy Injection 16:53:25 CDT CPT-31465 Visit 10:35:01 RACK WORKER CPT-OV Office Visit 11:07:54 RACK WORKER CPT-35266 Visit 11:03:41 RACK WORKER CPT-79270 Visit 15:16:37 RACK WORKER CPT-43179 Visit 17:02:15 RACK WORKER CPT-72742 Visit 11:11:34 RACK WORKER CPT-43891 [facility] transvag <14 weeks 16:17:14 CDT CPT-01662 Visit 11:24:40 CDT CPT-13704 Visit 18:13:37 CDT CPT-52211 Administration single or combination vaccine inc oral 12 :28:46 CDT CPT-26199 Influenza split virus > age 3 12:28:46 CDT CPT-33960 Sono OB comp > 14 weeks 17:05:09 CDT
--- OUTSIDE RECORDS SUMMARY | 2017-01-23 14:35 | XMS REPORT ---
Author Author EMERITA MADRID Organization [facility] Address [address] [place] [address] Phone Unavailable Care Team Providers Care Rn Home Care Name Role Phone EMERITA MADRID Unavailable Unavailable PROBLEMS Type Condition ICD9-CM Code CRP42-DW Code Onset Dates Condition Status SNOMED Code Problem Seasonal allergic rhinitis, unspecified allergic rhinitis trigger J30.2 Active 775500873 Problem Menorrhagia with irregular cycle N92.1 Active 34214549 ALLERGIES Substance Reaction Event Type Date Status N.K.D.A. Unknown Non Drug Allergy Mar, Unknown SOCIAL HISTORY No smoking Hx information available PLAN OF CARE Activity Details Follow Up PRN Reason:DERIK VITAL SIGNS MEDICATIONS No Known Medications RESULTS No Results PROCEDURES Procedure Date Ordered Related Diagnosis Body Site Full mouth debridement Mar 26, 2016 Dental Outreach adjust balance Mar 26, 2016 IMMUNIZATIONS No Known Immunizations
--- OUTSIDE RECORDS SUMMARY | 2017-01-23 14:35 | XMS REPORT | Clinical Summary ---
Author Author Admin, SABRA Organization [facility] Address Unknown Phone Unavailable Allergies, Adverse Reactions, [...] and sinuses CONTRACEPTIVE MANAGEMENT V25.09 Active Carlin Najear RN Encounter for other general counseling and [...] tablet by mouth three times daily METRONIDAZOLE 06870934850 No Longer Active Aditi Chino MD Active TYLENOL 325 MG TABS one to two tabs Q4 hours PRN pain ACETAMINOPHEN 43194757984 No Longer Active Kirstin Yokum CONSTRUCTION EQUIPMENT MECHANIC HELPER Active COMPLETE BELA DHA 29-1-200 & 250 MG MISC 1 tab daily PRENAT- VSCKX-EDYZL-YG-CA-OMEGA 24008355115 No Longer Active Kirstin Yokum CONSTRUCTION EQUIPMENT MECHANIC HELPER Active LORATADINE 10 MG TABS one tab PO daily LORATADINE 20387327835 No Longer Active Kirstin Yokum CONSTRUCTION EQUIPMENT MECHANIC HELPER Active GNP SINUS WASH NETI POT 2300-700 MG KIT rinse sinuses BID PRN SODIUM CHLORIDE-SODIUM BICARB 96951569877 No Longer Active Kirstin Yokum CONSTRUCTION EQUIPMENT MECHANIC HELPER Active SOMA 350 MG TAB 1 tablet every 6 hours as needed for muscle pain CARISOPRODOL 04617828718 No Longer Active Kirstin Yokum CONSTRUCTION EQUIPMENT MECHANIC HELPER Active MELOXICAM 15 MG TABS 1 tab by mount every day for pain with food MELOXICAM 12941423378 No Longer Active Kirstin Yokum CONSTRUCTION EQUIPMENT MECHANIC HELPER Active MACROBID 100 MG CAPS one tab PO BID NITROFURANTOIN MONOHYD MACRO 38319327179 No Longer Active Aditi Chino MD Active BENADRYL 25 MG CAPS 1 to 2 caps every 6 hours PRN DIPHENHYDRAMINE HCL 82078262270 No Longer Active Aditi Chino MD Active MUCINEX 600 MG BS32W-JQL 1 tab every 12 hours PRN GUAIFENESIN 58158785817 No Longer Active Aditi Chino MD Active MUCINEX 600 MG DO38C-XLS 1 tab every 12 hours PRN MUCINEX 600 MG RO53A-SQX GUAIFENESIN Inactive BENADRYL 25 MG CAPS 1 to 2 caps every 6 hours PRN BENADRYL 25 MG CAPS 4046699 DIPHENHYDRAMINE HCL Inactive MELOXICAM 15 MG TABS 1 tab by mount every day for pain with food MELOXICAM 15 MG TABS 091644 MELOXICAM Inactive SOMA 350 MG TAB 1 tablet every 6 hours as needed for muscle pain SOMA 350 MG TAB 479701 CARISOPRODOL Inactive GNP SINUS WASH NETI POT 2300-700 MG KIT rinse sinuses BID PRN GNP SINUS WASH NETI POT 2300-700 MG KIT SODIUM CHLORIDE-SODIUM BICARB Inactive LORATADINE 10 MG TABS one tab PO daily LORATADINE 10 MG TABS 264499 LORATADINE Inactive COMPLETE DHA 29-1-200 & 250 MG MISC 1 tab daily COMPLETE DHA 29-1-200 & 250 MG MISC [id number]-DQCWJ-TBHXY-FA-CA-OMEGA Inactive TYLENOL 325 MG TABS one to two tabs Q4 hours PRN pain TYLENOL 325 MG TABS 008309 ACETAMINOPHEN Inactive FLAGYL 500 MG TAB 1 tablet by mouth three times daily FLAGYL 500 MG TAB 097023 METRONIDAZOLE Inactive MACROBID 100 MG CAPS one tab PO BID MACROBID 100 MG CAPS 5136547 NITROFURANTOIN MONOHYD MACRO Inactive Immunizations Vaccine Administration Date Value Standard Description Seasonal influenza vaccine, injectable, containing preservative, for > 3 years old (Afluria, FluLaval, Fluzone, Fluvirin, Fluarix, Agriflu(>=18 yo)) Fluzone (>3 yrs.) [JFM012] Influenza, seasonal, injectable hepatitis B vaccine series [...] Value Unit Range Description Lab Report: Chlamydia/GC APTIMA/61455 - Lab chlamydia DNA probe NOT DETECTED NOT DETECTED Lab Report: Chlamydia/GC APTIMA/42543 - Microbiology Neisseria gonorrhoeae DNA probe NOT DETECTED NOT DETECTED Office Procedure: Colposcopy - Chemistry human chorionic gonadotropin, urine, qualitative (urine test) neg Encounters Code Encounter Date Provider Facility CPT-24677 Level 3 Est. 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 Care Visit 11:12:44 BEAUTY SCHOOL INSTRUCTOR CPT-17761 Spec Collection and Handling Fee 11:10:58 BEAUTY SCHOOL INSTRUCTOR CPT-J1050 Depo Provera 150 mg (Medroxyprogesterone) 12:33:33 CDT CPT-16871 Abx/Therapy Injection 12:33:33 CDT CPT-J1050 Depo Provera 150 mg (Medroxyprogesterone) 11:47:45 BEAUTY SCHOOL INSTRUCTOR CPT-82011 Abx/Therapy Injection 11:47:45 BEAUTY SCHOOL INSTRUCTOR CPT-J1050 Depo Provera 150 mg (Medroxyprogesterone) 10:35:27 BEAUTY SCHOOL INSTRUCTOR CPT-11093 Abx/Therapy Injection 10:35:27 BEAUTY SCHOOL INSTRUCTOR CPT-J1050 Depo Provera 150 mg (Medroxyprogesterone) 13:36:14 CDT CPT-00673 Abx/Therapy Injection 13:36:14 CDT CPT-J1050 Depo Provera 150 mg (Medroxyprogesterone) 16:53:25 CDT CPT-06652 Abx/Therapy Injection 16:53:25 CDT CPT-69187 Visit 10:35:01 BEAUTY SCHOOL INSTRUCTOR CPT-OV Office Visit 11:07:54 BEAUTY SCHOOL INSTRUCTOR CPT-37903 Visit 11:03:41 BEAUTY SCHOOL INSTRUCTOR CPT-93766 Visit 15:16:37 BEAUTY SCHOOL INSTRUCTOR CPT-18141 Visit 17:02:15 BEAUTY SCHOOL INSTRUCTOR CPT-96986 Visit 11:11:34 BEAUTY SCHOOL INSTRUCTOR CPT-99005 Sono OB transvag <14 weeks 16:17:14 CDT CPT-76510 Visit 11:24:40 CDT CPT-95784 Visit 18:13:37 CDT CPT-17555 Administration single or combination vaccine inc oral 12 :28:46 CDT CPT-63890 Influenza split virus > age 3 12:28:46 CDT CPT-88240 Sono OB comp > 14 weeks 17:05:09 CDT
--- OUTSIDE RECORDS SUMMARY | 2017-01-23 14:36 | XMS REPORT | Clinical Summary ---
Author Author Admin, SABRA Organization [facility] Address Unknown Phone Unavailable Allergies, Adverse [...] injection q 3 month MEDROXYPROGEST LYNDSEY (CONTRACEP) 76159052566 Active Cher Wright LIGHT RAIL VEHICLE OPERATOR Active FLAGYL 500 MG TAB 1 tablet by mouth three times daily METRONIDAZOLE 33420312935 No Longer Active Aditi Chino MD Active TYLENOL 325 MG TABS one to two tabs Q4 hours PRN pain ACETAMINOPHEN 86597703720 No Longer Active Kirstin Yokum LAMINATION SPINNER Active COMPLETE DHA 29-1-200 & 250 MG MISC 1 tab daily PRENAT- UHJTB-ZMNLD-NI-CA-OMEGA 67051336701 No Longer Active Kirstin Yokum LAMINATION SPINNER Active LORATADINE 10 MG TABS one tab PO daily LORATADINE 85430899969 No Longer Active Kirstin Yokum LAMINATION SPINNER Active GNP SINUS WASH NETI POT 2300-700 MG KIT rinse sinuses BID PRN SODIUM CHLORIDE-SODIUM BICARB 25161372870 No Longer Active Kirstin Yokum LAMINATION SPINNER Active SOMA 350 MG TAB 1 tablet every 6 hours as needed for muscle pain CARISOPRODOL 13062960083 No Longer Active Kirstin Yokum LAMINATION SPINNER Active MELOXICAM 15 MG TABS 1 tab by mount every day for pain with food MELOXICAM 93283864017 No Longer Active Kirstin Yokum LAMINATION SPINNER Active MACROBID 100 MG CAPS one tab PO BID NITROFURANTOIN MONOHYD MACRO 72725441682 No Longer Active Aditi Chino MD Active BENADRYL 25 MG CAPS 1 to 2 caps every 6 hours PRN DIPHENHYDRAMINE HCL 85424860094 No Longer Active Aditi Chino MD Active MUCINEX 600 MG MQ91K-QDC 1 tab every 12 hours PRN GUAIFENESIN 22056763007 No Longer Active Aditi Chino MD Active MUCINEX 600 MG RO39F-MYR 1 tab every 12 hours PRN MUCINEX 600 MG TS23U-WBC GUAIFENESIN Inactive BENADRYL 25 MG CAPS 1 to 2 caps every 6 hours PRN BENADRYL 25 MG CAPS 8712927 DIPHENHYDRAMINE HCL Inactive MELOXICAM 15 MG TABS 1 tab by mount every day for pain with food MELOXICAM 15 MG TABS 902716 MELOXICAM Inactive SOMA 350 MG TAB 1 tablet every 6 hours as needed for muscle pain SOMA 350 MG TAB 212234 CARISOPRODOL Inactive GNP SINUS WASH NETI POT 2300-700 MG KIT rinse sinuses BID PRN GNP SINUS WASH NETI POT 2300-700 MG KIT SODIUM CHLORIDE-SODIUM BICARB Inactive LORATADINE 10 MG TABS one tab PO daily LORATADINE 10 MG TABS 468591 LORATADINE Inactive COMPLETE DHA 29-1-200 & 250 MG MISC 1 tab daily COMPLETE DHA 29-1-200 & 250 MG MISC [id number]-FA-CA-OMEGA Inactive TYLENOL 325 MG TABS one to two tabs Q4 hours PRN pain TYLENOL 325 MG TABS 407813 ACETAMINOPHEN Inactive FLAGYL 500 MG TAB 1 tablet by mouth three times daily FLAGYL 500 MG TAB 474946 METRONIDAZOLE Inactive MACROBID 100 MG CAPS one tab PO BID MACROBID 100 MG CAPS 0321826 NITROFURANTOIN MONOHYD MACRO Inactive Immunizations Vaccine Administration Date Value Standard Description Seasonal influenza vaccine, injectable, containing preservative, for > 3 years old (Afluria, FluLaval, Fluzone, Fluvirin, Fluarix, Agriflu(>=18 yo)) Fluzone (>3 yrs.) [TBN005] Influenza, seasonal, injectable hepatitis B vaccine series [...] Value Unit Range Description Lab Report: Chlamydia/GC APTIMA/39063 - Lab chlamydia DNA probe NOT DETECTED NOT DETECTED Lab Report: Chlamydia/GC APTIMA/65427 - Microbiology Neisseria gonorrhoeae DNA probe NOT DETECTED NOT DETECTED Lab Report: CG - Chemistry human chorionic gonadotropin, urine, qualitative (urine test) Negative Negative Office Procedure: Colposcopy - Chemistry human chorionic gonadotropin, urine, qualitative (urine test) neg Encounters Code Encounter Date Provider Facility CPT-02608 Level 3 Est. 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 Care Visit 11:12:44 SLAT BASKET MAKER CPT-67135 Spec Collection and Handling Fee 11:10:58 SLAT BASKET MAKER CPT-J1050 Depo Provera 150 mg (Medroxyprogesterone) 12:33:33 CDT CPT-24192 Abx/Therapy Injection 12:33:33 CDT CPT-J1050 Depo Provera 150 mg (Medroxyprogesterone) 11:47:45 SLAT BASKET MAKER CPT-46551 Abx/Therapy Injection 11:47:45 SLAT BASKET MAKER CPT-J1050 Depo Provera 150 mg (Medroxyprogesterone) 10:35:27 SLAT BASKET MAKER CPT-37033 Abx/Therapy Injection 10:35:27 SLAT BASKET MAKER CPT-J1050 Depo Provera 150 mg (Medroxyprogesterone) 13:36:14 CDT CPT-47890 Abx/Therapy Injection 13:36:14 CDT CPT-J1050 Depo Provera 150 mg (Medroxyprogesterone) 16:53:25 CDT CPT-10006 Abx/Therapy Injection 16:53:25 CDT CPT-09690 Visit 10:35:01 SLAT BASKET MAKER CPT-OV Office Visit 11:07:54 SLAT BASKET MAKER CPT-99915 Visit 11:03:41 SLAT BASKET MAKER CPT-38826 Visit 15:16:37 SLAT BASKET MAKER CPT-68830 Visit 17:02:15 SLAT BASKET MAKER CPT-30177 Visit 11:11:34 SLAT BASKET MAKER CPT-74233 Sono OB transvag <14 weeks 16:17:14 CDT CPT-60290 Visit 11:24:40 CDT CPT-51842 Visit 18:13:37 CDT CPT-12260 Administration single or combination vaccine inc oral 12 :28:46 CDT CPT-89408 Influenza split virus > age 3 12:28:46 CDT CPT-30569 Sono OB comp > 14 weeks 17:05:09 CDT
--- OUTSIDE RECORDS SUMMARY | 2017-01-23 14:36 | XMS REPORT | Clinical Summary ---
Author Author Admin, SABRA Organization [facility] Address Unknown Phone Unavailable Allergies, [...] tablet by mouth three times daily METRONIDAZOLE 47024063914 Active Kirstin Yokum CYBERATHLETE Active TYLENOL 325 MG TABS one to two tabs Q4 hours PRN pain ACETAMINOPHEN 72725130127 No Longer Active Kirstin Yokum CYBERATHLETE Active COMPLETE DHA 29-1-200 & 250 MG MISC 1 tab daily KRISSY- LTMKI-SOLZG-QI-CA-OMEGA 23261763613 No Longer Active Kirstin Yokum CYBERATHLETE Active LORATADINE 10 MG TABS one tab PO daily LORATADINE 60953319776 No Longer Active Kirstin Yokum CYBERATHLETE Active GNP SINUS WASH NETI POT 2300-700 MG KIT rinse sinuses BID PRN SODIUM CHLORIDE-SODIUM BICARB 21039023596 No Longer Active Kirstin Yokum CYBERATHLETE Active SOMA 350 MG TAB 1 tablet every 6 hours as needed for muscle pain CARISOPRODOL 61586086617 No Longer Active Kirstin Yokum CYBERATHLETE Active MELOXICAM 15 MG TABS 1 tab by mount every day for pain with food MELOXICAM 00278489972 No Longer Active Kirstin Yokum CYBERATHLETE Active MACROBID 100 MG CAPS one tab PO BID NITROFURANTOIN MONOHYD MACRO 02362106638 No Longer Active Aditi Chino MD Active BENADRYL 25 MG CAPS 1 to 2 caps every 6 hours PRN DIPHENHYDRAMINE HCL 30181547883 No Longer Active Aditi Chino MD Active MUCINEX 600 MG DH36F-VIN 1 tab every 12 hours PRN GUAIFENESIN 44863181295 No Longer Active Aditikyleigh Chino MD Active MUCINEX 600 MG QC59L-DKG 1 tab every 12 hours PRN MUCINEX 600 MG YG57M-IYI GUAIFENESIN Inactive BENADRYL 25 MG CAPS 1 to 2 caps every 6 hours PRN BENADRYL 25 MG CAPS 6799151 DIPHENHYDRAMINE HCL Inactive MELOXICAM 15 MG TABS 1 tab by mount every day for pain with food MELOXICAM 15 MG TABS 128760 MELOXICAM Inactive SOMA 350 MG TAB 1 tablet every 6 hours as needed for muscle pain SOMA 350 MG TAB 951653 CARISOPRODOL Inactive GNP SINUS WASH NETI POT 2300-700 MG KIT rinse sinuses BID PRN GNP SINUS WASH NETI POT 2300-700 MG KIT SODIUM CHLORIDE-SODIUM BICARB Inactive LORATADINE 10 MG TABS one tab PO daily LORATADINE 10 MG TABS 292155 LORATADINE Inactive COMPLETE DHA 29-1-200 & 250 MG MISC 1 tab daily COMPLETE DHA 29-1-200 & 250 MG MISC MDOMNX-UPHQJ-RGIHZ-FA-CA-OMEGA Inactive TYLENOL 325 MG TABS one to two tabs Q4 hours PRN pain TYLENOL 325 MG TABS 865510 ACETAMINOPHEN Inactive MACROBID 100 MG CAPS one tab PO BID MACROBID 100 MG CAPS 4925682 NITROFURANTOIN MONOHYD MACRO Inactive Immunizations Vaccine Administration Date Value Standard Description Seasonal influenza vaccine, injectable, containing preservative, for > 3 years old (Afluria, FluLaval, Fluzone, Fluvirin, Fluarix, Agriflu(>=18 yo)) Fluzone (>3 yrs.) [[id number]] Influenza, seasonal, injectable hepatitis B vaccine series [...] Value Unit Range Description Lab Report: Chlamydia/GC APTIMA/47761 - Lab chlamydia DNA probe NOT DETECTED NOT DETECTED Lab Report: Chlamydia/GC APTIMA/80906 - Microbiology Neisseria gonorrhoeae DNA probe NOT DETECTED NOT DETECTED Encounters Code Encounter Date Provider Facility CPT-17093 Level 3 Est. 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 Care Visit 11:12:44 COMMUNITY RELATIONS SPECIALIST CPT-42910 Spec Collection and Handling Fee 11:10:58 COMMUNITY RELATIONS SPECIALIST CPT-J1050 Depo Provera 150 mg (Medroxyprogesterone) 12:33:33 CDT CPT-50712 Abx/Therapy Injection 12:33:33 CDT CPT-J1050 Depo Provera 150 mg (Medroxyprogesterone) 11:47:45 COMMUNITY RELATIONS SPECIALIST CPT-98965 Abx/Therapy Injection 11:47:45 COMMUNITY RELATIONS SPECIALIST CPT-J1050 Depo Provera 150 mg (Medroxyprogesterone) 10:35:27 COMMUNITY RELATIONS SPECIALIST CPT-38375 Abx/Therapy Injection 10:35:27 COMMUNITY RELATIONS SPECIALIST CPT-J1050 Depo Provera 150 mg (Medroxyprogesterone) 13:36:14 CDT CPT-12875 Abx/Therapy Injection 13:36:14 CDT CPT-J1050 Depo Provera 150 mg (Medroxyprogesterone) 16:53:25 CDT CPT-72936 Abx/Therapy Injection 16:53:25 CDT CPT-73038 Visit 10:35:01 COMMUNITY RELATIONS SPECIALIST CPT-OV Office Visit 11:07:54 COMMUNITY RELATIONS SPECIALIST CPT-03327 Visit 11:03:41 COMMUNITY RELATIONS SPECIALIST CPT-31721 Visit 15:16:37 COMMUNITY RELATIONS SPECIALIST CPT-30924 Visit 17:02:15 COMMUNITY RELATIONS SPECIALIST CPT-42505 Visit 11:11:34 COMMUNITY RELATIONS SPECIALIST CPT-23972 Sono OB transvag <14 weeks 16:17:14 CDT CPT-94851 Visit 11:24:40 CDT CPT-98408 Visit 18:13:37 CDT CPT-48047 Administration single or combination vaccine inc oral 12 :28:46 CDT CPT-16603 Influenza split virus > age 3 12:28:46 CDT CPT-69502 Sono OB comp > 14 weeks 17:05:09 CDT
--- OUTSIDE RECORDS SUMMARY | 2017-01-23 14:37 | XMS REPORT | Clinical Summary ---
Author Author Admin, Baljinder Organization [facility] Address Unknown Phone Unavailable Allergies, Adverse Reactions, Alerts Allergy Name Reaction Description Start Date Severity Status Provider No Known Allergies Martita Weathers RMA Conditions or Problems Problem Name [...] Lower back pain 724.2 Active Jillina Frajames COMMUNITY DEVELOPMENT SPECIALIST Lumbago DYSURIA 788.1 Active Mirlande Frajames COMMUNITY DEVELOPMENT SPECIALIST Dysuria URI 465.9 Active Osmany Corea DO [...] then one daily for three days PREDNISONE 84074216907 Active Osmany Corea DO Active BACTRIM DS 800-160 MG TAB 1 tab by mouth twice daily TRIMETHOPRIM-SULFAMETHOXAZOLE 44963245883 No Longer Active Cher Wright LPN Active DEPO-PROVERA 150 MG/ML SUPENSION 1 IM injection q 3 month MEDROXYPROGEST LYNDSEY (CONTRACEP) 25033648367 Active Cher Wright LPN Active FLAGYL 500 MG TAB 1 tablet by mouth three times daily METRONIDAZOLE 36879836809 No Longer Active Aditi Chino MD Active TYLENOL 325 MG TABS one to two tabs Q4 hours PRN pain ACETAMINOPHEN 05956122324 No Longer Active Kirstin Yokum COMMUNITY DEVELOPMENT SPECIALIST Active COMPLETE DHA 29-1-200 & 250 MG MISC 1 tab daily PRENAT- WJJPW-ODVTV-FP-CA-OMEGA 37759164975 No Longer Active Kirstin Yokum COMMUNITY DEVELOPMENT SPECIALIST Active LORATADINE 10 MG TABS one tab PO daily LORATADINE 20233817460 No Longer Active Kirstin Yokum COMMUNITY DEVELOPMENT SPECIALIST Active GNP SINUS WASH NETI POT 2300-700 MG KIT rinse sinuses BID PRN SODIUM CHLORIDE-SODIUM BICARB 35610898726 No Longer Active Kirstin Yokum COMMUNITY DEVELOPMENT SPECIALIST Active SOMA 350 MG TAB 1 tablet every 6 hours as needed for muscle pain CARISOPRODOL 39493515611 No Longer Active Kirstin Yokum COMMUNITY DEVELOPMENT SPECIALIST Active MELOXICAM 15 MG TABS 1 tab by mount every day for pain with food MELOXICAM 79170717743 No Longer Active Kirstin Yokum COMMUNITY DEVELOPMENT SPECIALIST Active MACROBID 100 MG CAPS one tab PO BID NITROFURANTOIN MONOHYD MACRO 42967706824 No Longer Active Aditi Chino MD Active BENADRYL 25 MG CAPS 1 to 2 caps every 6 hours PRN DIPHENHYDRAMINE HCL 05049882134 No Longer Active Aditi Chino MD Active MUCINEX 600 MG [id number]-ZDW 1 tab every 12 hours PRN GUAIFENESIN 97548077863 No Longer Active Aditi Chino MD Active MUCINEX 600 MG [id number]-CKM 1 tab every 12 hours PRN MUCINEX 600 MG ZU99B-DQC GUAIFENESIN Inactive BENADRYL 25 MG CAPS 1 to 2 caps every 6 hours PRN BENADRYL 25 MG CAPS 3695891 DIPHENHYDRAMINE HCL Inactive MELOXICAM 15 MG TABS 1 tab by mount every day for pain with food MELOXICAM 15 MG TABS 356500 MELOXICAM Inactive SOMA 350 MG TAB 1 tablet every 6 hours as needed for muscle pain SOMA 350 MG TAB 743826 CARISOPRODOL Inactive GNP SINUS WASH NETI POT 2300-700 MG KIT rinse sinuses BID PRN GNP SINUS WASH NETI POT 2300-700 MG KIT SODIUM CHLORIDE-SODIUM BICARB Inactive LORATADINE 10 MG TABS one tab PO daily LORATADINE 10 MG TABS 433506 LORATADINE Inactive COMPLETE DHA 29-1-200 & 250 MG MISC 1 tab daily COMPLETE BELA DHA 29-1-200 & 250 MG MISC CDLATO-QUEVO-DMODY-FA-CA-OMEGA Inactive TYLENOL 325 MG TABS one to two tabs Q4 hours PRN pain TYLENOL 325 MG TABS 830375 ACETAMINOPHEN Inactive FLAGYL 500 MG TAB 1 tablet by mouth three times daily FLAGYL 500 MG TAB 652285 METRONIDAZOLE Inactive MACROBID 100 MG CAPS one tab PO BID MACROBID 100 MG CAPS 4312251 NITROFURANTOIN MONOHYD MACRO Inactive BACTRIM DS 800-160 MG TAB 1 tab by mouth twice daily BACTRIM DS 800-160 MG TAB 802441 TRIMETHOPRIM-SULFAMETHOXAZOLE Inactive Immunizations Vaccine Administration Date Value Standard Description Seasonal influenza vaccine, injectable, containing preservative, for > 3 years old (Afluria, FluLaval, Fluzone, Fluvirin, Fluarix, Agriflu(>=18 yo)) Fluzone (>3 yrs.) [[id number]] Influenza, seasonal, injectable hepatitis B vaccine series [...] Value Unit Range Description Lab Report: Chlamydia/GC APTIMA/93608 - Lab chlamydia DNA probe NOT DETECTED NOT DETECTED chlamydia DNA probe NOT DETECTED NOT DETECTED Lab Report: Chlamydia/GC APTIMA/15671 - Microbiology Neisseria gonorrhoeae DNA probe NOT [...] nitrite, urine, semiquantitative Negative Negative [place] [facility] [place] human chorionic gonadotropin, urine, qualitative (urine test) Negative Negative Office Procedure: Colposcopy - Chemistry human chorionic gonadotropin, urine, qualitative (urine test) neg Encounters Code Encounter Date Provider Facility CPT-03669 Level 3 Est. Patient 16:24:05 CDT Osmany Corea [facility] CPT-74968 Level 3 Est. Patient 14:17:14 [facility] 3 Est. 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 Osmany Corea DO [facility] Procedures Code Procedure Name Date Entry Date Standard Description CPT-34580 Hand, right, min 3V - XRAY USE ONLY 13:36:28 CDT 10/28 CPT-J1050 Depo Provera 150 mg (Medroxyprogesterone) 13:00:11 CDT CPT-62549 Abx/Therapy Injection 13:00:11 CDT CPT-J1050 Depo Provera 150 mg (Medroxyprogesterone) 09:36:26 CDT CPT-OV Office Visit 14:05:04 CDT CPT-44282 Romulus of cervix w bx ECC 13:52:03 CDT CPT-OV Office Visit 13:52:02 CDT CPT-J1050 Depo Provera 150 mg (Medroxyprogesterone) 15:37:52 TODDLER LEAD TEACHER CPT-67760 Abx/Therapy Injection 15:37:52 TODDLER LEAD TEACHER CPT-PV Prev. Care Visit 11:12:44 TODDLER LEAD TEACHER CPT-60184 Spec Collection and Handling Fee 11:10:58 TODDLER LEAD TEACHER CPT-J1050 Depo Provera 150 mg (Medroxyprogesterone) 12:33:33 CDT CPT-87960 Abx/Therapy Injection 12:33:33 CDT CPT-J1050 Depo Provera 150 mg (Medroxyprogesterone) 11:47:45 TODDLER LEAD TEACHER CPT-83143 Abx/Therapy Injection 11:47:45 TODDLER LEAD TEACHER CPT-J1050 Depo Provera 150 mg (Medroxyprogesterone) 10:35:27 TODDLER LEAD TEACHER CPT-70680 Abx/Therapy Injection 10:35:27 TODDLER LEAD TEACHER CPT-J1050 Depo Provera 150 mg (Medroxyprogesterone) 13:36:14 CDT CPT-16164 Abx/Therapy Injection 13:36:14 CDT CPT-J1050 Depo Provera 150 mg (Medroxyprogesterone) 16:53:25 CDT CPT-55008 Abx/Therapy Injection 16:53:25 CDT CPT-66484 Visit 10:35:01 TODDLER LEAD TEACHER CPT-OV Office Visit 11:07:54 TODDLER LEAD TEACHER CPT-17988 Visit 11:03:41 TODDLER LEAD TEACHER CPT-63755 Visit 15:16:37 TODDLER LEAD TEACHER CPT-09088 Visit 17:02:15 TODDLER LEAD TEACHER CPT-59466 Visit 11:11:34 TODDLER LEAD TEACHER CPT-63943 Sono OB transvag <14 weeks 16:17:14 CDT CPT-53495 Visit 11:24:40 CDT CPT-44742 Visit 18:13:37 CDT CPT-96953 Administration single or combination vaccine inc oral 12 :28:46 CDT CPT-35703 Influenza split virus > age 3 12:28:46 CDT CPT-35422 Sono OB comp > 14 weeks 17:05:09 CDT
--- OUTSIDE RECORDS SUMMARY | 2017-01-23 14:37 | XMS REPORT | Clinical Summary ---
Author Author Admin, SABRA Organization [facility] Address Unknown Phone Unavailable Allergies, Adverse Reactions, Alerts Allergy Name Reaction Description Start Date Severity Status Provider No Known Allergies Martitaparviz Willoughbysalvador A Conditions or Problems Problem Name Problem [...] (high grade squamous intraepithelial lesion) 795.04 Active dAiti Chino MD Papanicolaou smear of cervix with high grade squamous intraepithelial lesion (HGSIL) HPV 079.4 Active Aditi Chino MD Human papillomavirus infection in conditions classified elsewhere and of unspecified site Tobacco abuse 305.1 Active Aditi Chino MD Tobacco use disorder HOPE 3, severe cervical dysplasia 233.1 Active Aditi Chino MD Carcinoma in situ of cervix uteri Lower back pain 724.2 Active Jillina Frajames INSPECTOR RADAR AND ELECTRONICS Lumbago DYSURIA 788.1 Active Jillcarla Frajames INSPECTOR RADAR AND ELECTRONICS Dysuria URI 465.9 Active Osmany Corea DO [...] then one daily for three days PREDNISONE 47564652928 Active Osmany Corea DO Active BACTRIM DS 800-160 MG TAB 1 tab by mouth twice daily TRIMETHOPRIM-SULFAMETHOXAZOLE 58673471382 No Longer Active Cher Wright LPN Active DEPO-PROVERA 150 MG/ML SUPENSION 1 IM injection q 3 month MEDROXYPROGEST LYNDSEY (CONTRACEP) 46292321082 Active Cher Kyle BELT LOOP MACHINE OPERATOR Active FLAGYL 500 MG TAB 1 tablet by mouth three times daily METRONIDAZOLE 91047492248 No Longer Active Aditi Chino MD Active TYLENOL 325 MG TABS one to two tabs Q4 hours PRN pain ACETAMINOPHEN 66605490684 No Longer Active Kirstin Yokum INSPECTOR RADAR AND ELECTRONICS Active COMPLETE DHA 29-1-200 & 250 MG MISC 1 tab daily PRENAT- YDLUJ-UACQP-MO-CA-OMEGA 84370021580 No Longer Active Kirstin Yokum INSPECTOR RADAR AND ELECTRONICS Active LORATADINE 10 MG TABS one tab PO daily LORATADINE 69797825949 No Longer Active Kirstin Yokum INSPECTOR RADAR AND ELECTRONICS Active GNP SINUS WASH NETI POT 2300-700 MG KIT rinse sinuses BID PRN SODIUM CHLORIDE-SODIUM BICARB 60458962184 No Longer Active Kirstin Yokum INSPECTOR RADAR AND ELECTRONICS Active SOMA 350 MG TAB 1 tablet every 6 hours as needed for muscle pain CARISOPRODOL 57059210113 No Longer Active Kirstin Yokum INSPECTOR RADAR AND ELECTRONICS Active MELOXICAM 15 MG TABS 1 tab by mount every day for pain with food MELOXICAM 48128367442 No Longer Active Kirstin Yokum INSPECTOR RADAR AND ELECTRONICS Active MACROBID 100 MG CAPS one tab PO BID NITROFURANTOIN MONOHYD MACRO 32591212380 No Longer Active Aditi Chino MD Active BENADRYL 25 MG CAPS 1 to 2 caps every 6 hours PRN DIPHENHYDRAMINE HCL 36790938563 No Longer Active Aditi Chino MD Active MUCINEX 600 MG SA55A-SZA 1 tab every 12 hours PRN GUAIFENESIN 85191447263 No Longer Active Aditi Chino MD Active MUCINEX 600 MG QP98F-BWE 1 tab every 12 hours PRN MUCINEX 600 MG JL59I-HHJ GUAIFENESIN Inactive BENADRYL 25 MG CAPS 1 to 2 caps every 6 hours PRN BENADRYL 25 MG CAPS 9639864 DIPHENHYDRAMINE HCL Inactive MELOXICAM 15 MG TABS 1 tab by mount every day for pain with food MELOXICAM 15 MG TABS 521484 MELOXICAM Inactive SOMA 350 MG TAB 1 tablet every 6 hours as needed for muscle pain SOMA 350 MG TAB 406763 CARISOPRODOL Inactive GNP SINUS WASH NETI POT 2300-700 MG KIT rinse sinuses BID PRN GNP SINUS WASH NETI POT 2300-700 MG KIT SODIUM CHLORIDE-SODIUM BICARB Inactive LORATADINE 10 MG TABS one tab PO daily LORATADINE 10 MG TABS 340530 LORATADINE Inactive COMPLETE BELA DHA 29-1-200 & 250 MG MISC 1 tab daily COMPLETE BELA DHA 29-1-200 & 250 MG MISC [id number]-MWYVN-WEHKV-FA-CA-OMEGA Inactive TYLENOL 325 MG TABS one to two tabs Q4 hours PRN pain TYLENOL 325 MG TABS 513385 ACETAMINOPHEN Inactive FLAGYL 500 MG TAB 1 tablet by mouth three times daily FLAGYL 500 MG TAB 256496 METRONIDAZOLE Inactive MACROBID 100 MG CAPS one tab PO BID MACROBID 100 MG CAPS 9010723 NITROFURANTOIN MONOHYD MACRO Inactive BACTRIM DS 800-160 MG TAB 1 tab by mouth twice daily BACTRIM DS 800-160 MG TAB 549710 TRIMETHOPRIM-SULFAMETHOXAZOLE Inactive Immunizations Vaccine Administration Date Value Standard Description Seasonal influenza vaccine, injectable, containing preservative, for > 3 years old (Afluria, FluLaval, Fluzone, Fluvirin, Fluarix, Agriflu(>=18 yo)) Fluzone (>3 yrs.) [[id number]] Influenza, seasonal, injectable hepatitis B vaccine series [...] Value Unit Range Description Lab Report: Chlamydia/GC APTIMA/13615 - Lab chlamydia DNA probe NOT DETECTED NOT DETECTED chlamydia DNA probe NOT DETECTED NOT DETECTED Lab Report: Chlamydia/GC APTIMA/08766 - Microbiology Neisseria gonorrhoeae DNA probe NOT [...] nitrite, urine, semiquantitative Negative Negative Lab Report: [facility] [place] - Chemistry human chorionic gonadotropin, urine, qualitative (urine test) Negative Negative Office Procedure: Colposcopy - Chemistry human chorionic gonadotropin, urine, qualitative (urine test) neg Encounters Code Encounter Date Provider Facility CPT-59815 Level 3 Est. Patient 16:24:05 CDT Osmany Corea DO [facility] CPT-44525 Level 3 Est. Patient 14:17:14 CD[facility] Level 3 Est. Patient 12:23:10 FRESH FOOD MANAGER Osmany Corea DO [facility] -[facility] Procedures Code Procedure Name Date Entry Date Standard Description CPT-J1050 Depo Provera 150 mg (Medroxyprogesterone) 11:43:58 CDT CPT-83841 Abx/Therapy Injection 11:43:58 CDT CPT-J1050 Depo Provera 150 mg (Medroxyprogesterone) 08:33:57 CDT CPT-65900 Hand, right, min 3V - XRAY USE ONLY 13:36:28 CDT 10/28 CPT-J1050 Depo Provera 150 mg (Medroxyprogesterone) 13:00:11 CDT CPT-56573 Abx/Therapy Injection 13:00:11 CDT CPT-J1050 Depo Provera 150 mg (Medroxyprogesterone) 09:36:26 CDT CPT-OV Office Visit 14:05:04 CDT CPT-97846 Walker of cervix w bx ECC 13:52:03 CDT CPT-OV Office Visit 13:52:02 CDT CPT-J1050 Depo Provera 150 mg (Medroxyprogesterone) 15:37:52 FRESH FOOD MANAGER CPT-92824 Abx/Therapy Injection 15:37:52 FRESH FOOD MANAGER CPT-PV Prev. Care Visit 11:12:44 FRESH FOOD MANAGER CPT-05809 Spec Collection and Handling Fee 11:10:58 FRESH FOOD MANAGER CPT-J1050 Depo Provera 150 mg (Medroxyprogesterone) 12:33:33 CDT CPT-51968 Abx/Therapy Injection 12:33:33 CDT CPT-J1050 Depo Provera 150 mg (Medroxyprogesterone) 11:47:45 FRESH FOOD MANAGER CPT-70122 Abx/Therapy Injection 11:47:45 FRESH FOOD MANAGER CPT-J1050 Depo Provera 150 mg (Medroxyprogesterone) 10:35:27 FRESH FOOD MANAGER CPT-74598 Abx/Therapy Injection 10:35:27 FRESH FOOD MANAGER CPT-J1050 Depo Provera 150 mg (Medroxyprogesterone) 13:36:14 CDT CPT-86809 Abx/Therapy Injection 13:36:14 CDT CPT-J1050 Depo Provera 150 mg (Medroxyprogesterone) 16:53:25 CDT CPT-94617 Abx/Therapy Injection 16:53:25 CDT CPT-86366 Visit 10:35:01 FRESH FOOD MANAGER CPT-OV Office Visit 11:07:54 FRESH FOOD MANAGER CPT-98645 Visit 11:03:41 FRESH FOOD MANAGER CPT-61496 Visit 15:16:37 FRESH FOOD MANAGER CPT-19947 Visit 17:02:15 FRESH FOOD MANAGER CPT-13096 Visit 11:11:34 FRESH FOOD MANAGER CPT-89063 Sono OB transvag <14 weeks 16:17:14 CDT CPT-49204 Visit 11:24:40 CDT CPT-11363 Visit 18:13:37 CDT CPT-74761 Administration single or combination vaccine inc oral 12 :28:46 CDT CPT-78964 Influenza split virus > age 3 12:28:46 CDT CPT-06166 Sono OB comp > 14 weeks 17:05:09 CDT
--- NOTE | 2017-01-23 14:38 | ED EENT ---
History of Present Illness General Chief Complaint: Eye Problems Stated Complaint: LT EYE PINK Nursing Triage Note: PT STATES SHE HAS REDDNESS AND SWELLING IN HER L EYE SINCE YESTERDAY. Source: patient Exam Limitations: no limitations History of Present Illness Time seen by provider: 14:38 Allergies and Home Medications Allergies Coded Allergies: No Known Drug Allergies (Unverified , 11/08/16) Past Qteqrdx-Xobnbc-Tejykx Hx Patient Social History Alcohol Use: Denies Use Recreational Drug Use: No Smoking Status: Current Everyday Smoker Type Used: Cigarettes Recent Foreign Travel: No Contact w/Someone Who Travel: No Recent Infectious Disease Expo: No Recent Hopitalizations: No Physical Abuse: No Sexual Abuse: No Mistreated: No Fear: No Seasonal Allergies Seasonal Allergies: No Surgeries History of Surgeries: Yes Surgeries: Tonsillectomy Respiratory History of Respiratory Disorde: No Cardiovascular History of Cardiac Disorders: No Neurological History of Neurological Disord: No Genitourinary History of Genitourinary Disor: No Gastrointestinal History of Gastrointestinal Di: No Musculoskeletal History of Musculoskeletal Dis: No Endocrine History of Endocrine Disorders: No HEENT History of HEENT Disorders: No Cancer History of Cancer: No Cancer: Cervical Psychosocial History of Psychiatric Problem: No Suicide Risk Score: 0 Integumentary History of Skin or Integumenta: No Blood Transfusions History of Blood Disorders: No Physical Exam Vital Signs Vital Sign - Last 12Hours 01/23/17 14:34 Temp 97.2 Pulse 88 Resp 16 B/P (MAP) 109/72 Progress/Results/Core Measures Results/Orders Vital Signs/I&O Vital Sign - Last 12Hours 01/23/17 14:34 Temp 97.2 Pulse 88 Resp 16 B/P (MAP) 109/72 Blood Pressure Mean: 84 Departure Impression Impression: Primary Impression: Conjunctivitis Disposition: 01 HOME, SELF-CARE Condition: Improved Departure-Patient Inst. Decision time for Depature: 15:05 Referrals: NO,LOCAL PHYSICIAN (PCP/Family) Primary Care Physician Patient Instructions: Conjunctivitis ([place]) (DC) Add. Discharge Instructions: All discharge instructions reviewed with patient and/or family. Voiced understanding. Medications as instructed. Tylenol extra strength over-the- counter as directed for pain. Ibuprofen 800 mg by mouth every 8 hours as needed for pain. Use a clean, warm washcloth with no tears baby shampoo to cleanse the eyelids 2-3 times daily. Wipe from the tear duct outwards when cleansing the eyelids. Follow-up with her family practitioner if no improvement in symptoms. Return to the emergency department for worsened symptoms or any other concerns. 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
--- OUTSIDE RECORDS SUMMARY | 2017-01-23 14:38 | XMS REPORT | Clinical Summary ---
Author Author Admin, SABRA Organization [facility] Address Unknown Phone Unavailable Allergies, Adverse [...] AFFECT MGMT MOTH ANTPRTM 656.73 Resolved Aditi Cihno MD Other placental conditions affecting management of [...] CAVITY AND SINUSES 478.19 Resolved 03/01 Osmany Coera DO Other disease of nasal cavity and [...] 1 tab by mouth twice daily TRIMETHOPRIM-SULFAMETHOXAZOLE 96073333054 Active Cher Wright LPN Active DEPO-PROVERA 150 MG/ML SUPENSION 1 IM injection q 3 month MEDROXYPROGEST LYNDSEY (CONTRACEP) 24318134324 Active Cher Wright LPN Active FLAGYL 500 MG TAB 1 tablet by mouth three times daily METRONIDAZOLE 87544084669 No Longer Active Aditi Chino MD Active TYLENOL 325 MG TABS one to two tabs Q4 hours PRN pain ACETAMINOPHEN 85582693504 No Longer Active Kirstin Yokum SOUS CHEF KITCHEN MANAGER Active COMPLETE BELA DHA 29-1-200 & 250 MG MISC 1 tab daily PRENAT- CXMVC-HVLUR-PQ-CA-OMEGA 70986647524 No Longer Active Kirstin Yokum SOUS CHEF KITCHEN MANAGER Active LORATADINE 10 MG TABS one tab PO daily LORATADINE 86948034069 No Longer Active Kirstin Yokum SOUS CHEF KITCHEN MANAGER Active GNP SINUS WASH NETI POT 2300-700 MG KIT rinse sinuses BID PRN SODIUM CHLORIDE-SODIUM BICARB 86190525557 No Longer Active Kirstin Yokum SOUS CHEF KITCHEN MANAGER Active SOMA 350 MG TAB 1 tablet every 6 hours as needed for muscle pain CARISOPRODOL 75632323427 No Longer Active Kirstin Yokum SOUS CHEF KITCHEN MANAGER Active MELOXICAM 15 MG TABS 1 tab by mount every day for pain with food MELOXICAM 94520144640 No Longer Active Kirstin Yokum SOUS CHEF KITCHEN MANAGER Active MACROBID 100 MG CAPS one tab PO BID NITROFURANTOIN MONOHYD MACRO 47448882247 No Longer Active Aditi Chino MD Active BENADRYL 25 MG CAPS 1 to 2 caps every 6 hours PRN DIPHENHYDRAMINE HCL 08839425742 No Longer Active Aditi Chino MD Active MUCINEX 600 MG DG35B-TAZ 1 tab every 12 hours PRN GUAIFENESIN 58937259578 No Longer Active Aditi Chino MD Active MUCINEX 600 MG TD37B-BPX 1 tab every 12 hours PRN MUCINEX 600 MG GO63C-BCA GUAIFENESIN Inactive BENADRYL 25 MG CAPS 1 to 2 caps every 6 hours PRN BENADRYL 25 MG CAPS 9162757 DIPHENHYDRAMINE HCL Inactive MELOXICAM 15 MG TABS 1 tab by mount every day for pain with food MELOXICAM 15 MG TABS 326585 MELOXICAM Inactive SOMA 350 MG TAB 1 tablet every 6 hours as needed for muscle pain SOMA 350 MG TAB 977583 CARISOPRODOL Inactive GNP SINUS WASH NETI POT 2300-700 MG KIT rinse sinuses BID PRN GNP SINUS WASH NETI POT 2300-700 MG KIT SODIUM CHLORIDE-SODIUM BICARB Inactive LORATADINE 10 MG TABS one tab PO daily LORATADINE 10 MG TABS 794046 LORATADINE Inactive COMPLETE DHA 29-1-200 & 250 MG MISC 1 tab daily COMPLETE DHA 29-1-200 & 250 MG MISC HCYOJT-TCZWP-HOTXE-FA-CA-OMEGA Inactive TYLENOL 325 MG TABS one to two tabs Q4 hours PRN pain TYLENOL 325 MG TABS 262565 ACETAMINOPHEN Inactive FLAGYL 500 MG TAB 1 tablet by mouth three times daily FLAGYL 500 MG TAB 787778 METRONIDAZOLE Inactive MACROBID 100 MG CAPS one tab PO BID MACROBID 100 MG CAPS 3120549 NITROFURANTOIN MONOHYD MACRO Inactive Immunizations Vaccine Administration Date Value Standard Description Seasonal influenza vaccine, injectable, containing preservative, for > 3 years old (Afluria, FluLaval, Fluzone, Fluvirin, Fluarix, Agriflu(>=18 yo)) Fluzone (>3 yrs.) [NQU255] Influenza, seasonal, injectable hepatitis B vaccine series [...] Value Unit Range Description Lab Report: Chlamydia/GC APTIMA/80367 - Lab chlamydia DNA probe NOT DETECTED NOT DETECTED Lab Report: Chlamydia/GC APTIMA/05391 - Microbiology Neisseria gonorrhoeae DNA probe NOT DETECTED NOT DETECTED Lab Report: [facility] [place] Chemistry human chorionic gonadotropin, urine, qualitative (urine test) Negative Negative Office Procedure: Colposcopy - Chemistry human chorionic gonadotropin, urine, qualitative (urine test) neg Encounters Code Encounter Date Provider Facility CPT-73991 Level 3 Est. 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 Care Visit 11:12:44 SCREEN REPAIRER CRUSHER CPT-47466 Spec Collection and Handling Fee 11:10:58 SCREEN REPAIRER CRUSHER CPT-J1050 Depo Provera 150 mg (Medroxyprogesterone) 12:33:33 CDT CPT-20087 Abx/Therapy Injection 12:33:33 CDT CPT-J1050 Depo Provera 150 mg (Medroxyprogesterone) 11:47:45 SCREEN REPAIRER CRUSHER CPT-19848 Abx/Therapy Injection 11:47:45 SCREEN REPAIRER CRUSHER CPT-J1050 Depo Provera 150 mg (Medroxyprogesterone) 10:35:27 SCREEN REPAIRER CRUSHER CPT-33182 Abx/Therapy Injection 10:35:27 SCREEN REPAIRER CRUSHER CPT-J1050 Depo Provera 150 mg (Medroxyprogesterone) 13:36:14 CDT CPT-72774 Abx/Therapy Injection 13:36:14 CDT CPT-J1050 Depo Provera 150 mg (Medroxyprogesterone) 16:53:25 CDT CPT-01728 Abx/Therapy Injection 16:53:25 CDT CPT-86424 Visit 10:35:01 SCREEN REPAIRER CRUSHER CPT-OV Office Visit 11:07:54 SCREEN REPAIRER CRUSHER CPT-10010 Visit 11:03:41 SCREEN REPAIRER CRUSHER CPT-65475 Visit 15:16:37 SCREEN REPAIRER CRUSHER CPT-53956 Visit 17:02:15 SCREEN REPAIRER CRUSHER CPT-80148 Visit 11:11:34 SCREEN REPAIRER CRUSHER CPT-45918 Sono OB transvag <14 weeks 16:17:14 CDT CPT-98976 Visit 11:24:40 CDT CPT-90262 Visit 18:13:37 CDT CPT-61640 Administration single or combination vaccine inc oral 12 :28:46 CDT CPT-45260 Influenza split virus > age 3 12:28:46 CDT CPT-99746 Sono OB comp > 14 weeks 17:05:09 CDT
--- OUTSIDE RECORDS SUMMARY | 2017-01-23 14:38 | XMS REPORT | Clinical Summary ---
Author Author Admin, SABRA Organization [facility] Address Unknown Phone Unavailable Allergies, [...] MD Carcinoma in situ of cervix uteri TOB USE D/O COMP PG /PP ANTEPARTM COND/COMP ICD-649.03 06/17 Inactive Aditi Chino MD , NORMAL, MULTIGRAVIDA ICD-V22.1 Inactive Aditi Chino MD THROMBOCYTOPENIA ICD-287.5 Inactive Aditi Chino MD 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 Aditi Chino MD OTHER NONSPECIFIC FINDINGS EXAMINATION OF BLOOD ICD-790.99 05/06 Inactive Aditi Chino MD UTI ICD-599.0 Inactive Aditi Chino MD OTH PLACENTAL CONDS AFFECT 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 Inactive Aditi Chino MD VAGINAL DISCHARGE ICD-623.5 Inactive Aditi Chino MD 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 Aditi Chino MD Gynecological examination, routine ICD-V72.3 Inactive Aditi Chino MD OTHER DISEASES OF NASAL CAVITY AND SINUSES ICD-478.19 Inactive Osmany Corea DO Medication List Medication Instructions Start Date Stop Date Generic Name NDC Status Provider Patient Instruction DEPO-PROVERA 150 MG/ML SUPENSION 1 IM injection q 3 month MEDROXYPROGEST LYNDSEY (CONTRACEP) 86154860405 Active Cher Wrigth WOUND CARE CENTER CONSULTANT Active FLAGYL 500 MG TAB 1 tablet by mouth three times daily METRONIDAZOLE 06417874919 No Longer Active Aditi Chino MD Active TYLENOL 325 MG TABS one to two tabs Q4 hours PRN pain ACETAMINOPHEN 55793101873 No Longer Active Kirstin Yokum POCKET STITCHER Active COMPLETE DHA 29-1-200 & 250 MG MISC 1 tab daily PRENAT- IYWNU-HAFHY-GW-CA-OMEGA 47908783960 No Longer Active Kirstin Yokum POCKET STITCHER Active LORATADINE 10 MG TABS one tab PO daily LORATADINE 96813601227 No Longer Active Kirstin Yokum POCKET STITCHER Active GNP SINUS WASH NETI POT 2300-700 MG KIT rinse sinuses BID PRN SODIUM CHLORIDE-SODIUM BICARB 37152045157 No Longer Active Kirstin Yokum POCKET STITCHER Active SOMA 350 MG TAB 1 tablet every 6 hours as needed for muscle pain CARISOPRODOL 74749524634 No Longer Active Kirstin Yokum POCKET STITCHER Active MELOXICAM 15 MG TABS 1 tab by mount every day for pain with food MELOXICAM 41774199359 No Longer Active Kirstin Yokum POCKET STITCHER Active MACROBID 100 MG CAPS one tab PO BID NITROFURANTOIN MONOHYD MACRO 68746800015 No Longer Active Aditi Chino MD Active BENADRYL 25 MG CAPS 1 to 2 caps every 6 hours PRN DIPHENHYDRAMINE HCL 13991533470 No Longer Active Aditi Chino MD Active MUCINEX 600 MG VL98C-TGM 1 tab every 12 hours PRN GUAIFENESIN 49764602208 No Longer Active Aditi Chino MD Active MUCINEX 600 MG AS32L-PZM 1 tab every 12 hours PRN MUCINEX 600 MG UV13F-NTV GUAIFENESIN Inactive BENADRYL 25 MG CAPS 1 to 2 caps every 6 hours PRN BENADRYL 25 MG CAPS 0623006 DIPHENHYDRAMINE HCL Inactive MELOXICAM 15 MG TABS 1 tab by mount every day for pain with food MELOXICAM 15 MG TABS 223613 MELOXICAM Inactive SOMA 350 MG TAB 1 tablet every 6 hours as needed for muscle pain SOMA 350 MG TAB 393697 CARISOPRODOL Inactive GNP SINUS WASH NETI POT 2300-700 MG KIT rinse sinuses BID PRN GNP SINUS WASH NETI POT 2300-700 MG KIT SODIUM CHLORIDE-SODIUM BICARB Inactive LORATADINE 10 MG TABS one tab PO daily LORATADINE 10 MG TABS 361991 LORATADINE Inactive COMPLETE DHA 29-1-200 & 250 MG MISC 1 tab daily COMPLETE DHA 29-1-200 & 250 MG MISC [id number]-FA-CA-OMEGA Inactive TYLENOL 325 MG TABS one to two tabs Q4 hours PRN pain TYLENOL 325 MG TABS 032972 ACETAMINOPHEN Inactive FLAGYL 500 MG TAB 1 tablet by mouth three times daily FLAGYL 500 MG TAB 050522 METRONIDAZOLE Inactive MACROBID 100 MG CAPS one tab PO BID MACROBID 100 MG CAPS 5357112 NITROFURANTOIN MONOHYD MACRO Inactive Immunizations Vaccine Administration Date Value Standard Description Seasonal influenza vaccine, injectable, containing preservative, for > 3 years old (Afluria, FluLaval, Fluzone, Fluvirin, Fluarix, Agriflu(>=18 yo)) Fluzone (>3 yrs.) [PRN399] Influenza, seasonal, injectable hepatitis B vaccine series [...] Value Unit Range Description Lab Report: Chlamydia/GC APTIMA/72174 - Lab chlamydia DNA probe NOT DETECTED NOT DETECTED Lab Report: Chlamydia/GC APTIMA/74674 - Microbiology Neisseria gonorrhoeae DNA probe NOT DETECTED NOT DETECTED Lab Report: CG - Chemistry human chorionic gonadotropin, urine, qualitative (urine test) Negative Negative Office Procedure: Colposcopy - Chemistry human chorionic gonadotropin, urine, qualitative (urine test) neg Encounters Code Encounter Date Provider Facility CPT-30732 Level 3 Est. 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 Care Visit 11:12:44 NARROW FABRIC LOOM FIXER CPT-62640 Spec Collection and Handling Fee 11:10:58 NARROW FABRIC LOOM FIXER CPT-J1050 Depo Provera 150 mg (Medroxyprogesterone) 12:33:33 CDT CPT-36543 Abx/Therapy Injection 12:33:33 CDT CPT-J1050 Depo Provera 150 mg (Medroxyprogesterone) 11:47:45 NARROW FABRIC LOOM FIXER CPT-98942 Abx/Therapy Injection 11:47:45 NARROW FABRIC LOOM FIXER CPT-J1050 Depo Provera 150 mg (Medroxyprogesterone) 10:35:27 NARROW FABRIC LOOM FIXER CPT-73254 Abx/Therapy Injection 10:35:27 NARROW FABRIC LOOM FIXER CPT-J1050 Depo Provera 150 mg (Medroxyprogesterone) 13:36:14 CDT CPT-09741 Abx/Therapy Injection 13:36:14 CDT CPT-J1050 Depo Provera 150 mg (Medroxyprogesterone) 16:53:25 CDT CPT-32798 Abx/Therapy Injection 16:53:25 CDT CPT-95691 Visit 10:35:01 NARROW FABRIC LOOM FIXER CPT-OV Office Visit 11:07:54 NARROW FABRIC LOOM FIXER CPT-73510 Visit 11:03:41 NARROW FABRIC LOOM FIXER CPT-88762 Visit 15:16:37 NARROW FABRIC LOOM FIXER CPT-67195 Visit 17:02:15 NARROW FABRIC LOOM FIXER CPT-84646 Visit 11:11:34 NARROW FABRIC LOOM FIXER CPT-74449 [facility] transvag <14 weeks 16:17:14 CDT CPT-00908 Visit 11:24:40 CDT CPT-72769 Visit 18:13:37 CDT CPT-80298 Administration single or combination vaccine inc oral 12 :28:46 CDT CPT-27161 Influenza split virus > age 3 12:28:46 CDT CPT-35378 [facility] comp > 14 weeks 17:05:09 CDT
--- OUTSIDE RECORDS SUMMARY | 2017-01-23 14:39 | XMS REPORT | Clinical Summary ---
Author Author Admin, SABRA Organization [facility] Address Unknown Phone Unavailable Allergies, Adverse Reactions, [...] contraceptive management Cervical strain 847.0 Active Osmany Croea DO Neck sprain Gynecological examination, routine V72.3 [...] tablet by mouth three times daily METRONIDAZOLE 33881737810 No Longer Active Aditi Chino MD Active TYLENOL 325 MG TABS one to two tabs Q4 hours PRN pain ACETAMINOPHEN 07111976801 No Longer Active Kirstin Yokum MENTAL HEALTH TECHNICIAN Active COMPLETE DHA 29-1-200 & 250 MG MISC 1 tab daily PRENAT- XEKWS-OMVMH-LL-CA-OMEGA 43731198150 No Longer Active Kirstin Yokum MENTAL HEALTH TECHNICIAN Active LORATADINE 10 MG TABS one tab PO daily LORATADINE 48430283974 No Longer Active Kirstin Yokum MENTAL HEALTH TECHNICIAN Active GNP SINUS WASH NETI POT 2300-700 MG KIT rinse sinuses BID PRN SODIUM CHLORIDE-SODIUM BICARB 73796315036 No Longer Active Kirstin Yokum MENTAL HEALTH TECHNICIAN Active SOMA 350 MG TAB 1 tablet every 6 hours as needed for muscle pain CARISOPRODOL 79787292317 No Longer Active Kirstin Yokum MENTAL HEALTH TECHNICIAN Active MELOXICAM 15 MG TABS 1 tab by mount every day for pain with food MELOXICAM 60723273870 No Longer Active Kirstin Yokum MENTAL HEALTH TECHNICIAN Active MACROBID 100 MG CAPS one tab PO BID NITROFURANTOIN MONOHYD MACRO 96295897256 No Longer Active Aditi Chino MD Active BENADRYL 25 MG CAPS 1 to 2 caps every 6 hours PRN DIPHENHYDRAMINE HCL 02471870708 No Longer Active Aditi Chino MD Active MUCINEX 600 MG CM01B-QDW 1 tab every 12 hours PRN GUAIFENESIN 15282799642 No Longer Active Aditi Chino MD Active MUCINEX 600 MG HK69E-LYT 1 tab every 12 hours PRN MUCINEX 600 MG VQ34Z-OJM GUAIFENESIN Inactive BENADRYL 25 MG CAPS 1 to 2 caps every 6 hours PRN BENADRYL 25 MG CAPS 1646757 DIPHENHYDRAMINE HCL Inactive MELOXICAM 15 MG TABS 1 tab by mount every day for pain with food MELOXICAM 15 MG TABS 340077 MELOXICAM Inactive SOMA 350 MG TAB 1 tablet every 6 hours as needed for muscle pain SOMA 350 MG TAB 123542 CARISOPRODOL Inactive GNP SINUS WASH NETI POT 2300-700 MG KIT rinse sinuses BID PRN GNP SINUS WASH NETI POT 2300-700 MG KIT SODIUM CHLORIDE-SODIUM BICARB Inactive LORATADINE 10 MG TABS one tab PO daily LORATADINE 10 MG TABS 309976 LORATADINE Inactive COMPLETE BELA DHA 29-1-200 & 250 MG MISC 1 tab daily COMPLETE BELA DHA 29-1-200 & 250 MG MISC [id number]-IASZK-HOVTG-FA-CA-OMEGA Inactive TYLENOL 325 MG TABS one to two tabs Q4 hours PRN pain TYLENOL 325 MG TABS 818753 ACETAMINOPHEN Inactive FLAGYL 500 MG TAB 1 tablet by mouth three times daily FLAGYL 500 MG TAB 742019 METRONIDAZOLE Inactive MACROBID 100 MG CAPS one tab PO BID MACROBID 100 MG CAPS 3608324 NITROFURANTOIN MONOHYD MACRO Inactive Immunizations Vaccine Administration Date Value Standard Description Seasonal influenza vaccine, injectable, containing preservative, for > 3 years old (Afluria, FluLaval, Fluzone, Fluvirin, Fluarix, Agriflu(>=18 yo)) Fluzone (>3 yrs.) [LEQ467] Influenza, seasonal, injectable hepatitis B vaccine series [...] Value Unit Range Description Lab Report: Chlamydia/GC APTIMA/80386 - Lab chlamydia DNA probe NOT DETECTED NOT DETECTED Lab Report: Chlamydia/GC APTIMA/25775 - Microbiology Neisseria gonorrhoeae DNA probe NOT DETECTED NOT DETECTED Office Procedure: Colposcopy - Chemistry human chorionic gonadotropin, urine, qualitative (urine test) neg Encounters Code Encounter Date Provider Facility CPT-83922 Level 3 Est. 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 Care Visit 11:12:44 POLE LIFT OPERATOR CPT-39200 Spec Collection and Handling Fee 11:10:58 POLE LIFT OPERATOR CPT-J1050 Depo Provera 150 mg (Medroxyprogesterone) 12:33:33 CDT CPT-39508 Abx/Therapy Injection 12:33:33 CDT CPT-J1050 Depo Provera 150 mg (Medroxyprogesterone) 11:47:45 POLE LIFT OPERATOR CPT-27515 Abx/Therapy Injection 11:47:45 POLE LIFT OPERATOR CPT-J1050 Depo Provera 150 mg (Medroxyprogesterone) 10:35:27 POLE LIFT OPERATOR CPT-56992 Abx/Therapy Injection 10:35:27 POLE LIFT OPERATOR CPT-J1050 Depo Provera 150 mg (Medroxyprogesterone) 13:36:14 CDT CPT-91752 Abx/Therapy Injection 13:36:14 CDT CPT-J1050 Depo Provera 150 mg (Medroxyprogesterone) 16:53:25 CDT CPT-64336 Abx/Therapy Injection 16:53:25 CDT CPT-99534 Visit 10:35:01 POLE LIFT OPERATOR CPT-OV Office Visit 11:07:54 POLE LIFT OPERATOR CPT-63820 Visit 11:03:41 POLE LIFT OPERATOR CPT-76743 Visit 15:16:37 POLE LIFT OPERATOR CPT-94957 Visit 17:02:15 POLE LIFT OPERATOR CPT-94096 Visit 11:11:34 POLE LIFT OPERATOR CPT-61761 [facility] transvag <14 weeks 16:17:14 CDT CPT-90787 Visit 11:24:40 CDT CPT-02872 Visit 18:13:37 CDT CPT-17916 Administration single or combination vaccine inc oral 12 :28:46 CDT CPT-10619 Influenza split virus > age 3 12:28:46 CDT CPT-82439 [facility] comp > 14 weeks 17:05:09 CDT
--- OUTSIDE RECORDS SUMMARY | 2017-01-23 14:39 | XMS REPORT | Clinical Summary ---
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 Aditi Chino MD , NORMAL, MULTIGRAVIDA ICD-V22.1 Inactive Aditi Chino MD THROMBOCYTOPENIA ICD-287.5 Inactive Aditi Chino MD OTHER NONSPECIFIC FINDINGS EXAMINATION OF BLOOD ICD-790.99 05/06 Inactive Aditi Chino MD UTI ICD-599.0 Inactive Aditi Chino MD 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 Aditi Chino MD VAGINAL DISCHARGE ICD-623.5 Inactive Aditi Chino MD OTH PLACENTAL CONDS AFFECT 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 Inactive Aditi Chino MD Gynecological examination, routine ICD-V72.3 Inactive Aditi Chino MD OTHER DISEASES OF NASAL CAVITY AND SINUSES ICD-478.19 Inactive Osmany Corea DO Medication List Medication Instructions Start Date Stop Date Generic Name NDC Status Provider Patient Instruction BACTRIM DS 800-160 MG TAB 1 tab by mouth twice daily TRIMETHOPRIM-SULFAMETHOXAZOLE 81285909410 No Longer Active hCer Wright LPN Active DEPO-PROVERA 150 MG/ML SUPENSION 1 IM injection q 3 month MEDROXYPROGEST LYNDSEY (CONTRACEP) 71340310343 Active Cher Wright LPN Active FLAGYL 500 MG TAB 1 tablet by mouth three times daily METRONIDAZOLE 04745699775 No Longer Active Aditi Chino MD Active TYLENOL 325 MG TABS one to two tabs Q4 hours PRN pain ACETAMINOPHEN 40330393291 No Longer Active Kirstin Yokum CONCRETE PRODUCTS DISPATCHER Active COMPLETE BELA DHA 29-1-200 & 250 MG MISC 1 tab daily KRISSY- EMVPE-CHBZP-OL-CA-OMEGA 52124244130 No Longer Active Kirstin Yokum CONCRETE PRODUCTS DISPATCHER Active LORATADINE 10 MG TABS one tab PO daily LORATADINE 63336390424 No Longer Active Kirstin Yokum CONCRETE PRODUCTS DISPATCHER Active GNP SINUS WASH NETI POT 2300-700 MG KIT rinse sinuses BID PRN SODIUM CHLORIDE-SODIUM BICARB 56628067037 No Longer Active Kirstin Yokum CONCRETE PRODUCTS DISPATCHER Active SOMA 350 MG TAB 1 tablet every 6 hours as needed for muscle pain CARISOPRODOL 02335646646 No Longer Active Kirstin Yokum CONCRETE PRODUCTS DISPATCHER Active MELOXICAM 15 MG TABS 1 tab by mount every day for pain with food MELOXICAM 43260611185 No Longer Active Kirstin Yokum CONCRETE PRODUCTS DISPATCHER Active MACROBID 100 MG CAPS one tab PO BID NITROFURANTOIN MONOHYD MACRO 61419880501 No Longer Active Aditi Chino MD Active BENADRYL 25 MG CAPS 1 to 2 caps every 6 hours PRN DIPHENHYDRAMINE HCL 10204809258 No Longer Active Aditi Chino MD Active MUCINEX 600 MG SJ36X-DDT 1 tab every 12 hours PRN GUAIFENESIN 98690967878 No Longer Active Aditi Chino MD Active MUCINEX 600 MG VQ63G-NQS 1 tab every 12 hours PRN MUCINEX 600 MG SU77H-LEZ GUAIFENESIN Inactive BENADRYL 25 MG CAPS 1 to 2 caps every 6 hours PRN BENADRYL 25 MG CAPS 8856878 DIPHENHYDRAMINE HCL Inactive MELOXICAM 15 MG TABS 1 tab by mount every day for pain with food MELOXICAM 15 MG TABS 172402 MELOXICAM Inactive SOMA 350 MG TAB 1 tablet every 6 hours as needed for muscle pain SOMA 350 MG TAB 166057 CARISOPRODOL Inactive GNP SINUS WASH NETI POT 2300-700 MG KIT rinse sinuses BID PRN GNP SINUS WASH NETI POT 2300-700 MG KIT SODIUM CHLORIDE-SODIUM BICARB Inactive LORATADINE 10 MG TABS one tab PO daily LORATADINE 10 MG TABS 288523 LORATADINE Inactive COMPLETE BELA DHA 29-1-200 & 250 MG MISC 1 tab daily COMPLETE BELA DHA 29-1-200 & 250 MG MISC OREHKH-ULFIP-FDKNB-FA-CA-OMEGA Inactive TYLENOL 325 MG TABS one to two tabs Q4 hours PRN pain TYLENOL 325 MG TABS 767625 ACETAMINOPHEN Inactive FLAGYL 500 MG TAB 1 tablet by mouth three times daily FLAGYL 500 MG TAB 759877 METRONIDAZOLE Inactive MACROBID 100 MG CAPS one tab PO BID MACROBID 100 MG CAPS 0258211 NITROFURANTOIN MONOHYD MACRO Inactive BACTRIM DS 800-160 MG TAB 1 tab by mouth twice daily BACTRIM DS 800-160 MG TAB 027007 TRIMETHOPRIM-SULFAMETHOXAZOLE Inactive Immunizations Vaccine Administration Date Value Standard Description Seasonal influenza vaccine, injectable, containing preservative, for > 3 years old (Afluria, FluLaval, Fluzone, Fluvirin, Fluarix, Agriflu(>=18 yo)) Fluzone (>3 yrs.) [VOU915] Influenza, seasonal, injectable hepatitis B vaccine series [...] Value Unit Range Description Lab Report: Chlamydia/GC APTIMA/57023 - Lab chlamydia DNA probe NOT DETECTED NOT DETECTED chlamydia DNA probe NOT DETECTED NOT DETECTED Lab Report: Chlamydia/GC APTIMA/65247 - Microbiology Neisseria gonorrhoeae DNA probe NOT [...] nitrite, urine, semiquantitative Negative Negative Lab Report: [facility] - Chemistry human chorionic gonadotropin, urine, qualitative (urine test) Negative Negative Office Procedure: Colposcopy - Chemistry human chorionic gonadotropin, urine, qualitative (urine test) neg Encounters Code Encounter Date Provider Facility CPT-45558 Level 3 Est. Patient 14:17:14 [facility]T [facility] Est. Patient 12:23:10 CARE MANAGEMENT SPECIALIST Osmany Corea DO [facility] Procedures Code Procedure Name Date Entry Date Standard Description CPT-J1050 Depo Provera 150 mg (Medroxyprogesterone) 13:00:11 CDT CPT-77873 Abx/Therapy Injection 13:00:11 CDT CPT-J1050 Depo Provera 150 mg (Medroxyprogesterone) 09:36:26 CDT CPT-OV Office Visit 14:05:04 CDT CPT-29701 [place] of cervix w bx ECC 13:52:03 CDT CPT-OV Office Visit 13:52:02 CDT CPT-J1050 Depo Provera 150 mg (Medroxyprogesterone) 15:37:52 CARE MANAGEMENT SPECIALIST CPT-54475 Abx/Therapy Injection 15:37:52 CARE MANAGEMENT SPECIALIST CPT-PV Prev. Care Visit 11:12:44 CARE MANAGEMENT SPECIALIST CPT-01078 Spec Collection and Handling Fee 11:10:58 CARE MANAGEMENT SPECIALIST CPT-J1050 Depo Provera 150 mg (Medroxyprogesterone) 12:33:33 CDT CPT-88863 Abx/Therapy Injection 12:33:33 CDT CPT-J1050 Depo Provera 150 mg (Medroxyprogesterone) 11:47:45 CARE MANAGEMENT SPECIALIST CPT-36010 Abx/Therapy Injection 11:47:45 CARE MANAGEMENT SPECIALIST CPT-J1050 Depo Provera 150 mg (Medroxyprogesterone) 10:35:27 CARE MANAGEMENT SPECIALIST CPT-26061 Abx/Therapy Injection 10:35:27 CARE MANAGEMENT SPECIALIST CPT-J1050 Depo Provera 150 mg (Medroxyprogesterone) 13:36:14 CDT CPT-25300 Abx/Therapy Injection 13:36:14 CDT CPT-J1050 Depo Provera 150 mg (Medroxyprogesterone) 16:53:25 CDT CPT-52648 Abx/Therapy Injection 16:53:25 CDT CPT-11023 Visit 10:35:01 CARE MANAGEMENT SPECIALIST CPT-OV Office Visit 11:07:54 CARE MANAGEMENT SPECIALIST CPT-94697 Visit 11:03:41 CARE MANAGEMENT SPECIALIST CPT-95858 Visit 15:16:37 CARE MANAGEMENT SPECIALIST CPT-22110 Visit 17:02:15 CARE MANAGEMENT SPECIALIST CPT-65347 Visit 11:11:34 CARE MANAGEMENT SPECIALIST CPT-70569 [facility] transvag <14 weeks 16:17:14 CDT CPT-17976 Visit 11:24:40 CDT CPT-11331 Visit 18:13:37 CDT CPT-42939 Administration single or combination vaccine inc oral 12 :28:46 CDT CPT-54158 Influenza split virus > age 3 12:28:46 CDT CPT-57051 [facility] comp > 14 weeks 17:05:09 CDT
--- OUTSIDE RECORDS SUMMARY | 2017-01-23 14:40 | XMS REPORT ---
Author Author JASON SANCHEZ Organization [facility] Address [address] [place] [address] Care Team Providers Care Third Hand Name Role Phone JASON SANCHEZ Unavailable PROBLEMS Type Condition ICD9-CM Code [id number] Code Onset Dates Condition Status SNOMED Code Problem Seasonal allergic rhinitis, unspecified allergic rhinitis trigger J30.2 Active 593215016 Problem Menorrhagia with irregular cycle N92.1 Active 93346401 ALLERGIES Substance Reaction Event Type Date Status N.K.D.A. Unknown Non Drug Allergy Mar, Unknown SOCIAL HISTORY No smoking Hx information available PLAN OF CARE Activity Details Follow Up Will call when we get your records Reason: VITAL SIGNS Height 61.25 in 2016-04-02 Weight 111.8 lbs 2016-04-02 Temperature 99.2 degrees Fahrenheit 2016-04-02 Heart Rate 78 bpm 2016-04-02 Respiratory Rate 20 2016-04-02 BMI 20.95 kg/m2 2016-04-02 Blood pressure systolic 122 mmHg 2016-04-02 Blood pressure diastolic 70 mmHg 2016-04-02 MEDICATIONS Medication Instructions Dosage Frequency Start Date End Date Duration Status Depo-Provera 150 MG/ML as directed Mar, Active RESULTS Name Result Date Reference Range CBC 2016-04-02 WBC 7.7 3.4-10.8 RBC 4.54 3.77-5.28 Hemoglobin 14.6 11.1-15.9 Hematocrit 42.3 34.0-46.6 MCV 93 79-97 MCH 32.2 26.6-33.0 MCHC 34.5 31.5-35.7 RDW 13.3 12.3-15.4 Platelets 303 150-379 Neutrophils 62 Lymphs 31 Monocytes 5 Eos 2 Basos 0 Neutrophils (Absolute) 4.8 1.4-7.0 Lymphs (Absolute) 2.3 0.7-3.1 Monocytes(Absolute) 0.4 0.1-0.9 Eos (Absolute) 0.1 0.0-0.4 Baso (Absolute) 0.0 0.0-0.2 Immature Granulocytes 0 Immature Grans (Abs) 0.0 0.0-0.1 HEPATITIS PROFILE 2016-04-02 Hep A Ab, IgM Negative Negative HBsAg Screen Negative Negative Hep B Core Ab, IgM Negative Negative Hep C Virus Ab <0.1 0.0-0.9 SYPHILIS (STATE) 2016-04-02 HIV (STATE) 2016-04-02 PROCEDURES Procedure Date Ordered Related Diagnosis Body Site COMPLETE CBC W/AUTO DIFF WBC Apr 02, 2016 ACUTE HEPATITIS PANEL Apr 02, 2016 VENIPUNCT, ROUTINE* Apr 02, 2016 No Charge Apr 02, 2016 Office Visit, New Pt., Level 4 Apr 02, 2016 IMMUNIZATIONS No Known Immunizations
--- OUTSIDE RECORDS SUMMARY | 2017-01-23 14:40 | XMS REPORT | Clinical Summary ---
Author Author Admin, SABRA Organization [facility] Address Unknown Phone Unavailable Allergies, Adverse Reactions, [...] and sinuses CONTRACEPTIVE MANAGEMENT V25.09 Active Carlin Naejra RN Encounter for other general counseling and [...] tablet by mouth three times daily METRONIDAZOLE 85374090674 Active Kirstin Yokum BOX CAR WASHER Active TYLENOL 325 MG TABS one to two tabs Q4 hours PRN pain ACETAMINOPHEN 66806760431 No Longer Active Kirstin Yokum BOX CAR WASHER Active COMPLETE DHA 29-1-200 & 250 MG MISC 1 tab daily KRISSY- [id number]-CA-OMEGA [id number] No Longer Active Kirstin Yokum BOX CAR WASHER Active LORATADINE 10 MG TABS one tab PO daily LORATADINE 19296871765 No Longer Active Kirstin Yokum BOX CAR WASHER Active GNP SINUS WASH NETI POT 2300-700 MG KIT rinse sinuses BID PRN SODIUM CHLORIDE-SODIUM BICARB 18506431044 No Longer Active Kirstin Yokum BOX CAR WASHER Active SOMA 350 MG TAB 1 tablet every 6 hours as needed for muscle pain CARISOPRODOL 72312760187 No Longer Active Kirstin Yokum BOX CAR WASHER Active MELOXICAM 15 MG TABS 1 tab by mount every day for pain with food MELOXICAM 86594411803 No Longer Active Kirstin Yokum BOX CAR WASHER Active MACROBID 100 MG CAPS one tab PO BID NITROFURANTOIN MONOHYD MACRO 85718027156 No Longer Active Aditi Chino MD Active BENADRYL 25 MG CAPS 1 to 2 caps every 6 hours PRN DIPHENHYDRAMINE HCL 62593154844 No Longer Active Aditi Chino MD Active MUCINEX 600 MG [id number] 1 tab every 12 hours PRN GUAIFENESIN 87091523391 No Longer Active Aditikyleigh Chino MD Active MUCINEX 600 MG [id number]-[id number] 1 tab every 12 hours PRN MUCINEX 600 MG [id number] GUAIFENESIN Inactive BENADRYL 25 MG CAPS 1 to 2 caps every 6 hours PRN BENADRYL 25 MG CAPS 3079782 DIPHENHYDRAMINE HCL Inactive MELOXICAM 15 MG TABS 1 tab by mount every day for pain with food MELOXICAM 15 MG TABS 411486 MELOXICAM Inactive SOMA 350 MG TAB 1 tablet every 6 hours as needed for muscle pain SOMA 350 MG TAB 162718 CARISOPRODOL Inactive GNP SINUS WASH NETI POT 2300-700 MG KIT rinse sinuses BID PRN GNP SINUS WASH NETI POT 2300-700 MG KIT SODIUM CHLORIDE-SODIUM BICARB Inactive LORATADINE 10 MG TABS one tab PO daily LORATADINE 10 MG TABS 826416 LORATADINE Inactive COMPLETE DHA 29-1-200 & 250 MG MISC 1 tab daily COMPLETE DHA 29-1-200 & 250 MG MISC [id number]-CA-OMEGA Inactive TYLENOL 325 MG TABS one to two tabs Q4 hours PRN pain TYLENOL 325 MG TABS 307134 ACETAMINOPHEN Inactive MACROBID 100 MG CAPS one tab PO BID MACROBID 100 MG CAPS [id number] NITROFURANTOIN MONOHYD MACRO Inactive Immunizations Vaccine Administration Date Value Standard Description Seasonal influenza vaccine, injectable, containing preservative, for > 3 years old (Afluria, FluLaval, Fluzone, Fluvirin, Fluarix, Agriflu(>=18 yo)) Fluzone (>3 yrs.) [BMH702] Influenza, seasonal, injectable hepatitis B vaccine series [...] Value Unit Range Description Lab Report: Chlamydia/GC APTIMA/[id number] - Lab chlamydia DNA probe NOT DETECTED NOT DETECTED Lab Report: Chlamydia/GC APTIMA/[id number] - Microbiology Neisseria gonorrhoeae DNA probe NOT DETECTED NOT DETECTED Encounters Code Encounter Date Provider Facility CPT-15648 Level 3 Est. 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 Procedures Code Procedure Name Date Entry Date Standard Description CPT-J1050 Depo Provera 150 mg (Medroxyprogesterone) 15:37:52 PROGRESSIVE ASSEMBLER AND FITTER CPT-02935 Abx/Therapy Injection 15:37:52 PROGRESSIVE ASSEMBLER AND FITTER CPT-PV Prev. Care Visit 11:12:44 PROGRESSIVE ASSEMBLER AND FITTER CPT-85354 Spec Collection and Handling Fee 11:10:58 PROGRESSIVE ASSEMBLER AND FITTER CPT-J1050 Depo Provera 150 mg (Medroxyprogesterone) 12:33:33 CDT CPT-90353 Abx/Therapy Injection 12:33:33 CDT CPT-J1050 Depo Provera 150 mg (Medroxyprogesterone) 11:47:45 PROGRESSIVE ASSEMBLER AND FITTER CPT-12184 Abx/Therapy Injection 11:47:45 PROGRESSIVE ASSEMBLER AND FITTER CPT-J1050 Depo Provera 150 mg (Medroxyprogesterone) 10:35:27 PROGRESSIVE ASSEMBLER AND FITTER CPT-97281 Abx/Therapy Injection 10:35:27 PROGRESSIVE ASSEMBLER AND FITTER CPT-J1050 Depo Provera 150 mg (Medroxyprogesterone) 13:36:14 CDT CPT-66362 Abx/Therapy Injection 13:36:14 CDT CPT-J1050 Depo Provera 150 mg (Medroxyprogesterone) 16:53:25 CDT CPT-66213 Abx/Therapy Injection 16:53:25 CDT CPT-16018 Visit 10:35:01 PROGRESSIVE ASSEMBLER AND FITTER CPT-OV Office Visit 11:07:54 PROGRESSIVE ASSEMBLER AND FITTER CPT-74248 Visit 11:03:41 PROGRESSIVE ASSEMBLER AND FITTER CPT-93780 Visit 15:16:37 PROGRESSIVE ASSEMBLER AND FITTER CPT-94655 Visit 17:02:15 PROGRESSIVE ASSEMBLER AND FITTER CPT-13802 Visit 11:11:34 PROGRESSIVE ASSEMBLER AND FITTER CPT-72404 Sono OB transvag <14 weeks 16:17:14 CDT CPT-45968 Visit 11:24:40 CDT CPT-65003 Visit 18:13:37 CDT CPT-14076 Administration single or combination vaccine inc oral 12 :28:46 CDT CPT-70370 Influenza split virus > age 3 12:28:46 CDT CPT-95195 Sono OB comp > 14 weeks 17:05:09 CDT
--- OUTSIDE RECORDS SUMMARY | 2017-01-23 14:40 | XMS REPORT | Continuity of Care Document ---
Author Author [facility] Organization [facility] Address Unknown Phone Unavailable Allergies Medications Problems Procedures Results Encounters ACCT No. Visit Date/Time Discharge Status Pt. Type Provider Facility Loc./Unit Complaint [id number] 01/28/2016 14:52:00 ACT Unknown
[2017-01-23] MEDS ORDERED: PLTR10OP OP (15:07)
[2017-01-23 15:10] VITALS: BP 109/72
== END 2017-01-23 15:10 | disposition home or self-care (01) ==
LOC: EDUNIT# 14:21 → ER 14:23
DX: H10.9 Unspecified conjunctivitis (principal); F17.210 Nicotine dependence, cigarettes, uncomplicated; Z90.89 Acquired absence of other organs
CPT/HCPCS: 99282

== ENCOUNTER 2017-05-23 03:03 | Emergency (ER) | payer SELFPAY ==
[~2017-05-23] VITALS: Ht 152.4 cm; Wt 45.4 kg
[~2017-05-23 03:03] MED LIST: PLTR10OP OP
--- NOTE | 2017-05-23 03:38 | ED GU-Female ---
General Chief Complaint: -Female Stated Complaint: POSS MISCARRIAGE Nursing Triage Note: PT TO ED 9 W/ C/O ABD PAIN ET VAGINAL BLEEDING ONSET YESTERDAY, WORSE TODAY. PT REPORTS SHE THINKS SHE IS HAVING A MISCARRIAGE. UNSURE WHEN LMP WAS. ALSO REPORTS SHE HAS USED METH ET MARIJUANA W/IN THE LAST 3 DAYS. Nursing Sepsis Screen: No Definite Risk Source: patient (SOMEWHAT LIMITED HISTORIAN--DIFFICULTY CONCENTRATING AND STATES "I DON'T KNOW" TO MANY QUESTIONS) History of Present Illness Date Seen by Provider: May 23, 2017 Time Seen by Provider: 03:25 Initial Comments PT ARRIVES VIA POV C/O LOWER ABDOMINAL CRAMPING AND VAGINAL BLEEDING SINCE YESTERDAY PT HAS NO IDEA WHEN HER LMP WAS--POSSIBLY FEBRUARY??? PT STATES SHE HAD 1 DEPO-PROVERA SHOT--HAS NO IDEA WHEN THAT WAS, BUT THINKS SOMETIME LAST YEAR PT STATES SHE "DOESN'T HARDLY HAVE PERIODS" STATES SHE HAS NOT USED ANY PADS, JUST USING TOILET PAPER--HAS NO IDEA HOW MUCH BLEEDING SHE HAS BEEN HAVING PT STATES SHE HAD A + HOME TEST 2 DAYS AGO NO URINARY SYMPTOMS NO NAUSEA/VOMITING PT IS AB 1--ELECTIVE, NOT COUNTING THIS POSSIBLE PT IS CHRONIC METH AND MARIJUANA USER.DENIES IV USE. CLAIMS NO USE X 3 DAYS. PCP: HAS BEEN TO [facility] ONCE--STATES SHE JUST MOVED HERE Allergies and Home Medications Allergies Coded Allergies: No Known Drug Allergies (Unverified , 11/08/16) Home Medications Polymyxin B Sulf/Trimethoprim 10 Ml Drops, 1 DROP OP Q3HR for 7 Days, #1 Ref 0 Prescribed by: MELISSA WATSON on 01/23/17 1507 Constitutional: no symptoms reported Respiratory: no symptoms reported Cardiovascular: no symptoms reported Gastrointestinal: see HPI, abdominal pain Genitourinary: see HPI : Yes (+ HOME HCG PER PT) Musculoskeletal: no symptoms reported Skin: no symptoms reported Psychiatric/Neurological: No Symptoms Reported Endocrine: No Symptoms Reported Hematologic/Lymphatic: No Symptoms Reported Past Xufsuav-Nbzwwk-Idmiek Hx Patient Social History Alcohol Use: Denies Use Recreational Drug Use: Yes (METH, MARIJUANA) Drug of Choice: THC, METH-DENIES IV USE Smoking Status: Current Everyday Smoker (1/2 PPD) Type Used: Cigarettes (1/2 PPD) Recent Foreign Travel: No Contact w/Someone Who Travel: No Recent Infectious Disease Expo: No Recent Hopitalizations: No Physical Abuse: No Sexual Abuse: No Mistreated: No Fear: No Seasonal Allergies Seasonal Allergies: No Surgeries History of Surgeries: Yes (CERVICAL BX AND CONIZATION / LEEP , TUMOR ON LEG; ELECTIVE ) Surgeries: Tonsillectomy Respiratory History of Respiratory Disorde: No Cardiovascular History of Cardiac Disorders: No Neurological History of Neurological Disord: No Reproductive System Hx Reproductive Disorders: Yes (CERVICAL DYSPLASIA/CANCER--S/P CONIZATION/LEEP PROCEDURE) Sexually Transmitted Disease: Yes (HPV) HIV/AIDS: No Female Reproductive Disorders: Denies Genitourinary History of Genitourinary Disor: No Gastrointestinal History of Gastrointestinal Di: No Musculoskeletal History of Musculoskeletal Dis: No Endocrine History of Endocrine Disorders: No HEENT History of HEENT Disorders: No Cancer History of Cancer: Yes Cancer: Cervical Did You Recieve Any Treatments: Yes (CONIZATION/LEEP PROCEDURE) Psychosocial History of Psychiatric Problem: No Suicide Risk Score: 0 Integumentary History of Skin or Integumenta: No Blood Transfusions History of Blood Disorders: No Family Medical History Significant Family History: No Pertinent Family Hx Physical Exam Vital Signs Vital Signs - First Documented 05/23/17 03:08 Temp 98.3 Pulse 110 Resp 20 B/P (MAP) 130/74 (92) Pulse Ox 100 O2 Delivery Room Air Capillary Refill : Less Than 3 Seconds General Appearance: WD/WN, no apparent distress, thin, other (CONSTANT MOVEMENTS, DIFFICULTY CONCENTRATING) Cardiovascular: normal peripheral pulses, regular rate, rhythm, no murmur Respiratory: normal breath sounds, no respiratory distress, no accessory muscle use Gastrointestinal: soft, no organomegaly, tenderness (DIFFUSE LOWER ABDOMINAL TENDERNESS) Back: no CVA tenderness Extremities: normal inspection, no pedal edema, normal capillary refill Neurologic/Psychiatric: 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 as tested, no motor/sensory deficits, alert, oriented x 3 Skin: normal color, warm/dry Progress/Results/Core Measures Suspected Sepsis Recent Fever Within 48 Hours: No Infection Criteria Present: None New/Unexplained Altered Menta: No Sepsis Screen: No Definite Risk Sepsis Diagnosis: SIRS Temperature:98.3 Pulse: 110 Respiratory Rate: 20 Laboratory Tests 05/23/17 03:40: White Blood Count 14.9H Blood Pressure 130 /74 Mean: 92 Laboratory Tests 05/23/17 03:40: Platelet Count 171 Results/Orders Lab Results Laboratory Tests Test 05/23/17 03:40 05/23/17 03:43 Range/Units White Blood Count 14.9 H 4.3-11.0 10^3/uL Red Blood Count 4.18 L 4.35-5.85 10^6/uL Hemoglobin 13.4 11.5-16.0 G/DL Hematocrit 38 35-52 % Mean Corpuscular Volume 91 80-99 FL Mean Corpuscular Hemoglobin 32 25-34 PG Mean Corpuscular Hemoglobin Concent 35 32-36 G/DL Red Cell Distribution Width 13.0 10.0-14.5 % Platelet Count 171 130-400 10^3/uL Mean Platelet Volume 11.4 H 7.4-10.4 FL Neutrophils (%) (Auto) 86 H 42-75 % Lymphocytes (%) (Auto) 8 L 12-44 % Monocytes (%) (Auto) 5 0-12 % Eosinophils (%) (Auto) 0 0-10 % Basophils (%) (Auto) 0 0-10 % Neutrophils # (Auto) 12.8 H 1.8-7.8 X 10^3 Lymphocytes # (Auto) 1.2 1.0-4.0 X 10^3 Monocytes # (Auto) 0.8 0.0-1.0 X 10^3 Eosinophils # (Auto) 0.1 0.0-0.3 10^3/uL Basophils # (Auto) 0.0 0.0-0.1 10^3/uL Neutrophils % (Manual) 87 % Lymphocytes % (Manual) 6 % Monocytes % (Manual) 2 % Eosinophils % (Manual) 0 % Basophils % (Manual) 0 % Band Neutrophils 1 % Reactive Lymphocytes 4 % Blood Morphology Comment NORMAL Human Chorionic Gonadotropin, Quant 92307 H <5 MIU/ML Urine Color YELLOW Urine Clarity VERY CLOUDY H Urine pH 7 5-9 Urine Specific [place] 1.020 1.016-1.022 Urine Protein 2+ H NEGATIVE Urine Glucose (UA) NEGATIVE NEGATIVE Urine Ketones NEGATIVE NEGATIVE Urine Nitrite NEGATIVE NEGATIVE Urine Bilirubin NEGATIVE NEGATIVE Urine Urobilinogen 4 H NORMAL MG/DL Urine Leukocyte Esterase 3+ H NEGATIVE Urine RBC (Auto) 5+ H NEGATIVE Urine RBC 5-10 H /HPF Urine WBC TNTC H /HPF Urine Squamous Epithelial Cells 10-25 H /HPF Urine Crystals NONE /LPF Urine Bacteria MODERATE H /HPF Urine Casts NONE /LPF Urine Mucus NEGATIVE /LPF Urine Culture Indicated YES Urine Opiates Screen NEGATIVE NEGATIVE Urine Oxycodone Screen NEGATIVE NEGATIVE Urine Methadone Screen NEGATIVE NEGATIVE Urine Propoxyphene Screen NEGATIVE NEGATIVE Urine Barbiturates Screen NEGATIVE NEGATIVE Ur Tricyclic Antidepressants Screen NEGATIVE NEGATIVE Urine Phencyclidine Screen NEGATIVE NEGATIVE Urine Amphetamines Screen POSITIVE H NEGATIVE Urine Methamphetamines Screen POSITIVE H NEGATIVE Urine Benzodiazepines Screen NEGATIVE NEGATIVE Urine Cocaine Screen NEGATIVE NEGATIVE Urine Cannabinoids Screen POSITIVE H NEGATIVE My Orders Orders - SARITA THOMAS DO Cbc With Automated Diff (05/23/17 03:30) Drug Screen Stat (Urine) (05/23/17 03:30) Hcg,Quantitative (05/23/17 03:30) Ua Culture If Indicated (05/23/17 03:30) Abo Rh Type (05/23/17 03:30) Manual Differential (05/23/17 03:40) Urine Culture (05/23/17 03:43) Us Ob Single Fetus<14 [id number] (05/23/17 05:00) Acetaminophen Tablet (Tylenol Tablet) (05/23/17 05:00) Acetaminophen Tablet (Tylenol Tablet) (05/23/17 04:59) Ondansetron Oral Dissolve Tab (Zofran (05/23/17 05:15) Ondansetron Oral Dissolve Tab (Zofran (05/23/17 05:02) Medications Given in ED Current Medications Medications Dose Ordered Sig/[place] Route Start Time Stop Time Status Last Admin Dose Admin Acetaminophen 1,000 mg ONCE ONCE PO 05/23/17 05:00 05/23/17 05:02 DC 05/23/17 05:00 1,000 MG Ondansetron HCl 4 mg ONCE ONCE PO 05/23/17 05:15 05/23/17 05:16 DC 05/23/17 05:05 4 MG Vital Signs/I&O Vital Sign - Last 12Hours 05/23/17 03:08 Temp 98.3 Pulse 110 Resp 20 B/P (MAP) 130/74 (92) Pulse Ox 100 O2 Delivery Room Air Capillary Refill : Less Than 3 Seconds Blood Pressure Mean: 92 Progress Note : Progress Note NO BLEEDING DURING ER STAY Diagnostic Imaging Comments ULTRASOUND--12 WEEKS, NORMAL IUP, CLOSED CERVIX. PER TECH REPORT @ 0615 Reviewed: Reviewed by Me Departure Impression Impression: Primary Impression: Threatened in early Additional Impressions: Urinary tract infection Illicit drug use Disposition: 01 HOME, SELF-CARE Condition: Stable Departure-Patient Inst. Referrals: NO,LOCAL PHYSICIAN (PCP) Primary Care Physician [facility] Patient Instructions: Avoiding Infections in , Bleeding With (DC), Drug Abuse and Drug Addiction (DC), How to Plan and Prepare for a Healthy , Threatened Miscarriage (DC), Urinary Tract Infection, Adult (DC) Add. Discharge Instructions: NOTHING IN VAGINA--NO TAMPONS, DOUCHING OR INTERCOURSE KEEP AN ACCURATE PAD COUNT, RETURN TO ER IF SOAKING MORE THAN 1 MAXI PAD AN HOUR TYLENOL NEEDED FOR PAIN LOTS OF FLUIDS NO DRUGS OR ALCOHOL FOLLOW UP WITH [facility] ON THURSDAY FOR FURTHER CARE All discharge instructions reviewed with patient and/or family. Voiced understanding. Scripts Vit W-Ca,Fe,FA(<1 mg) ( Vitamins) 1 Each Tablet 1 EACH PO DAILY, #30 TAB Prov: SARITA THOMAS DO 05/23/17 Doxylamine/Pyridoxine HCl (Liz Dr 10-10 mg Tablet) 1 Each Tablet.dr 2 EACH PO HS, #14 TAB Prov: SARITA THOMAS DO 05/23/17 Nitrofurantoin Monohyd/M-Cryst (Macrobid 100 mg Capsule) 100 Mg Capsule 100 MG PO BID, #20 CAP Prov: SARITA THOMAS DO 05/23/17 SARITA THOMAS DO May 23, 2017 03:38
[2017-05-23 03:54] LABS: BASOPHILS % (AUTO) 0 % (0-10); EOSINOPHILS # (AUTO) 0.1 10^3/uL (0.0-0.3); EOSINOPHILS % (AUTO) 0 % (0-10); HEMATOCRIT 38 % (35-52); HEMOGLOBIN 13.4 G/DL (11.5-16.0); LYMPHOCYTES # (AUTO) 1.2 X 10^3 (1.0-4.0); LYMPHOCYTES % (AUTO) 8 % (12-44); MEAN CORPUSCULAR HEMOGLOBIN 32 PG (25-34); MEAN CORPUSCULAR HGB CONC 35 G/DL (32-36); MEAN CORPUSCULAR VOLUME 91 FL (80-99); MEAN PLATELET VOLUME 11.4 FL (7.4-10.4); MONOCYTES # (AUTO) 0.8 X 10^3 (0.0-1.0); MONOCYTES % (AUTO) 5 % (0-12); NEUTROPHILS # (AUTO) 12.8 X 10^3 (1.8-7.8); NEUTROPHILS % (AUTO) 86 % (42-75); PLATELET COUNT 171 10^3/uL (130-400); RED BLOOD COUNT 4.18 10^6/uL (4.35-5.85); WHITE BLOOD COUNT 14.9 10^3/uL (4.3-11.0)
[2017-05-23 03:55] LABS: BILIRUBIN,URINE NEGATIVE (NEGATIVE); CLARITY,URINE VERY CLOUDY; COLOR,URINE YELLOW; GLUCOSE, URINE (UA) NEGATIVE (NEGATIVE); KETONES,URINE NEGATIVE (NEGATIVE); LEUKOCYTE ESTERASE ,URINE 3+ (NEGATIVE); NITRITE,URINE NEGATIVE (NEGATIVE); PH,URINE 7 (5-9); PROTEIN,URINE 2+ (NEGATIVE); UROBILINOGEN,URINE 4 MG/DL (NORMAL)
[2017-05-23 04:01] LABS: BACTERIA,URINE MODERATE /HPF; WBC,URINE TNTC /HPF
[2017-05-23 04:05] LABS: AMPHETAMINE SCREEN, URINE POSITIVE (NEGATIVE); BARBITURATE SCREEN URINE NEGATIVE (NEGATIVE); BENZODIAZEPINES SCREEN URINE NEGATIVE (NEGATIVE); CANNABINOID SCREEN, URINE POSITIVE (NEGATIVE); COCAINE SCREEN URINE NEGATIVE (NEGATIVE); METHAMPHETAMINE SCREEN URINE S POSITIVE (NEGATIVE); OPIATE SCREEN URINE NEGATIVE (NEGATIVE)
[2017-05-23 04:06] LABS: METHADONE STAT NEGATIVE (NEGATIVE); OXYCODONE STAT NEGATIVE (NEGATIVE); PROPOXYPHENE STAT NEGATIVE (NEGATIVE); TRICYCLIC ANTIDEPRESSANTS SCRE NEGATIVE (NEGATIVE)
[2017-05-23 04:11] LABS: BAND NEUTROPHILS 1 %; BASOPHILS % (MANUAL) 0 %; EOSINOPHILS % (MANUAL) 0 %; LYMPHOCYTES % (MANUAL) 6 %; MONOCYTES % (MANUAL) 2 %; NEUTROPHILS % (MANUAL) 87 %; RBC MORPH NORMAL; REACTIVE LYMPHOCYTES 4 %
[2017-05-23] MEDS ORDERED: ACETAMINOPHEN 500 MG TAB (TYLENOL) ONE (04:59)
[2017-05-23] MEDS ORDERED: ACETAMINOPHEN 500 MG TAB (TYLENOL) PO ONE (05:00)
[2017-05-23] MEDS ORDERED: ONDANSETRON 4 MG (ZOFRAN) ORAL DISSOLVE TAB ONE (05:02)
[2017-05-23] MEDS ORDERED: ONDANSETRON 4 MG (ZOFRAN) ORAL DISSOLVE TAB PO ONE (05:15)
[2017-05-23] MEDS ORDERED: PREN1TAB86 PO (06:22)
[2017-05-23] MEDS ORDERED: DOXY1TAB3 PO (06:22)
[2017-05-23] MEDS ORDERED: NITR-65 PO (06:22)
--- NOTE | 2017-05-23 06:22 | Diagnostic Imaging Report ---
PROCEDURE: US OB SINGLE FETUS <14 WKS. TECHNIQUE: Multiple real-time grayscale images were obtained over the gravid uterus in various projections. INDICATION: Pelvic pain and vaginal spotting. COMPARISON: None. DISCUSSION: Transabdominal sonographic evaluation of the pelvis was performed on a limited basis. Single live intrauterine at 12 weeks 1 day by today's sonographic measurements. EDC by today's ultrasound is 12/04/2017. heart rate measures 169 beats per minute. [place]-rump length measures 5.5 cm. Gestational sac is normal in appearance and is rounded. No abnormal adnexal mass or fluid. The ovaries were obscured by bowel. IMPRESSION: 1. Single live intrauterine at 12 weeks 1 day. Dictated by: Dictated on workstation # [id number]
[2017-05-23 06:38] VITALS: BP 0/0
== END 2017-05-23 06:38 | disposition home or self-care (01) ==
LOC: EDUNIT# 03:03 → ER 03:05
DX: O20.0 Threatened abortion (principal); O23.41 Unspecified infection of urinary tract in pregnancy, first trimester; O99.321 Drug use complicating pregnancy, first trimester; F12.90 Cannabis use, unspecified, uncomplicated; F15.90 Other stimulant use, unspecified, uncomplicated; O99.331 Smoking (tobacco) complicating pregnancy, first trimester; F17.210 Nicotine dependence, cigarettes, uncomplicated; Z85.41 Personal history of malignant neoplasm of cervix uteri; Z90.89 Acquired absence of other organs; Z3A.12 12 weeks gestation of pregnancy
CPT/HCPCS: 36415; 76801; 80306; 81000; 84702; 85007; 85027; 86900; 86901; 87088; 87186; 99283

== ENCOUNTER 2017-05-26 14:55 | Emergency (ER) | payer SELFPAY ==
[~2017-05-26 14:55] MED LIST changes: +DOXY1TAB3 PO; +NITR-65 PO; +PREN1TAB86 PO
--- OUTSIDE RECORDS SUMMARY | 2017-05-26 15:09 | XMS REPORT ---
Author Author CECILE MORRISON Organization [facility] Address [address] [place] [address] Care Team Providers Care [employer] Professor Name Role Phone CECILE MORRISON Unavailable PROBLEMS Type Condition ICD9-CM Code JKA43-PP Code Onset Dates Condition Status SNOMED Code Problem Seasonal allergic rhinitis, unspecified allergic rhinitis trigger J30.2 Active 658183201 Problem Menorrhagia with irregular cycle N92.1 Active 53642185 ALLERGIES No Known Allergies SOCIAL HISTORY Never Assessed PLAN OF CARE Activity Details Follow Up prn Reason: VITAL SIGNS Height 61.25 in 2016-08-04 Weight 124.4 lbs 2016-08-04 Temperature 97.8 degrees Fahrenheit 2016-08-04 Heart Rate 80 bpm 2016-08-04 Respiratory Rate 18 2016-08-04 BMI 23.31 kg/m2 2016-08-04 Blood pressure systolic 104 mmHg 2016-08-04 Blood pressure diastolic 62 mmHg 2016-08-04 MEDICATIONS Medication Instructions Dosage Frequency Start Date End Date Duration Status Zyrtec Allergy 10 MG Orally Once a day 1 tablet 24h August, August, 30 day(s) Active Fluticasone Propionate 50 MCG/ACT Nasally Once a day 1 spray in each nostril 24h August, 30 day(s) Active RESULTS No Results PROCEDURES Procedure Date Ordered Result Body Site DEPO MEDROL 40 MG/ML August 04, 2016 THER/PROPH/DIAG INJ, SC/IM August 04, 2016 DEXAMETHASONE 4MG/ML (PER 1 MG) August 04, 2016 IMMUNIZATIONS Vaccine Route Administration Date Status DEXAMETHASONE 4MG/ML (PER 1 MG) IM Intramuscular August 04, 2016 Administered DEPO MEDROL 40 MG/ML IM Intramuscular August 04, 2016 Administered MEDICAL (GENERAL) HISTORY Type Description [...]
--- NOTE | 2017-05-26 15:11 | ED GU-Female ---
General Stated Complaint: POSS MISCARRIAGE Allergies and Home Medications Allergies Coded Allergies: No Known Drug Allergies (Unverified , 11/08/16) Home Medications Doxylamine/Pyridoxine HCl 1 Each Tablet.dr, 2 EACH PO HS, #14 Prescribed by: SARITA THOMAS on 05/23/17 0622 Nitrofurantoin Monohyd/M-Cryst 100 Mg Capsule, 100 MG PO BID, #20 Prescribed by: SARITA THOMAS on 05/23/17 0622 Polymyxin B Sulf/Trimethoprim 10 Ml Drops, 1 DROP OP Q3HR for 7 Days, #1 Ref 0 Prescribed by: MELISSA WATSON on 01/23/17 1507 Vit W-Ca,Fe,FA(<1 mg) 1 Each Tablet, 1 EACH PO DAILY, #30 Prescribed by: SARITA THOMAS on 05/23/17 0622 Past Waqajvg-Bkblei-Dputrb Hx Patient Social History Drug of Choice: THC, METH-DENIES IV USE Type Used: Cigarettes Recent Foreign Travel: No Contact w/Someone Who Travel: No Recent Hopitalizations: No Seasonal Allergies Seasonal Allergies: No Surgeries History of Surgeries: Yes (CERVICAL BX AND CONIZATION / LEEP , TUMOR ON LEG; ELECTIVE ) Surgeries: Tonsillectomy Respiratory History of Respiratory Disorde: No Cardiovascular History of Cardiac Disorders: No Neurological History of Neurological Disord: No Reproductive System Hx Reproductive Disorders: Yes (CERVICAL DYSPLASIA/CANCER--S/P CONIZATION/LEEP PROCEDURE) Sexually Transmitted Disease: Yes (HPV) HIV/AIDS: No Female Reproductive Disorders: Denies Genitourinary History of Genitourinary Disor: No Gastrointestinal History of Gastrointestinal Di: No Musculoskeletal History of Musculoskeletal Dis: No Endocrine History of Endocrine Disorders: No HEENT History of HEENT Disorders: No Cancer History of Cancer: Yes Cancer: Cervical Did You Recieve Any Treatments: Yes Psychosocial History of Psychiatric Problem: No Integumentary History of Skin or Integumenta: No Blood Transfusions History of Blood Disorders: No Family Medical History Significant Family History: No Pertinent Family Hx Physical Exam Vital Signs Capillary Refill : Progress/Results/Core Measures Suspected Sepsis SIRS Temperature: Pulse: Respiratory Rate: Blood Pressure / Mean: Results/Orders My Orders Orders - BERYL BEE Ua Culture If Indicated (05/26/17 15:11) Urine Bedside (05/26/17 15:11) Vital Signs/I&O Capillary Refill : Departure Departure-Patient Inst. Referrals: NO,LOCAL PHYSICIAN (PCP/Family) Primary Care Physician BERYL BEE May 26, 2017 15:11
--- OUTSIDE RECORDS SUMMARY | 2017-05-26 15:14 | XMS REPORT | Continuity of Care Document ---
Author Author [facility] Organization [facility] Address Unknown Phone Unavailable Allergies There is no data. Medications There is no data. Problems There is no data. Procedures There is no data. Results There is no data. Encounters ACCT No. Visit Date/Time Discharge Status Pt. Type Provider Facility Loc./Unit Complaint [id number] 05/10/2017 10:07:12 ACT Unknown
--- NOTE | 2017-06-02 06:55 | Physician Query-Final Dx ---
BINH ZAMARRIPA 06/02/17 0655: Clinic Account Progress/Dx Physician Query: Please give diagnosis Date of Service May 26, 2017 at 14:57 Progress Note: Binh [phone] BERYL BEE 06/07/17 1948: Clinic Account Progress/Dx DIAGNOSIS: Diagnosis Pt left prior to being seen. No contact with patient. Progress Note: Note was open, pt left prior to being seen. No Patient contact by this provider. BINH ZAMARRIPA Jun 02, 2017 06:55 BERYL BEE Jun 07, 2017 19:48
== END 2017-05-26 16:11 | disposition left against medical advice (07) ==
LOC: EDUNIT# 14:55 → ER 14:57
DX: O20.0 Threatened abortion (principal); O99.320 Drug use complicating pregnancy, unspecified trimester; F12.10 Cannabis abuse, uncomplicated; F15.10 Other stimulant abuse, uncomplicated; Z90.89 Acquired absence of other organs; Z85.41 Personal history of malignant neoplasm of cervix uteri; Z86.19 Personal history of other infectious and parasitic diseases